=== PATIENT | female | born 1940 | race Caucasian/White ===

== ENCOUNTER 2019-05-12 11:08 | Day surgery (SDC) | payer MEDICARE ==
[2019-05-12] VITALS (7 sets, daily range): BP systolic 132–155; BP diastolic 44–61
[~2019-05-12] VITALS: Ht 167.6 cm; Wt 107.0 kg
[~2019-05-12 11:08] MED LIST: AMLO5TAB2 PO; ASP325TEC PO; CEPH500C PO; ESCT10T PO; GBPN300C PO; HYDR-707 PO; INSU100V16 SC; INSU100V6 SQ; LISI1TAB6 PO; LVT.15T PO; METF-380 PO; SIMV80TA3 PO; TYLENOL W/CODEINE PO
[2019-05-12] MEDS ORDERED: NS IV 1000 ML 1,000 ML ONE (11:11)
[2019-05-12] MEDS ORDERED: LIDOCAINE 1% INJ 20 ML 20 ML VIAL ONE (11:11)
[2019-05-12] MEDS ORDERED: HEParin (CATH LAB) 2,000 ML IV ONE (11:11)
--- OUTSIDE RECORDS SUMMARY | 2019-05-12 11:12 | XMS REPORT | CCD ---
Author Author ALONA PEDRO Unknown Address [address] [facility] [address] [place] [address] Care Team Providers Care Biology Manager Name Role Phone MAKEDA HART Attphys MICHELLE BULLOCK, JOVANY ASHLEY Prisurg B., DEO NASST J., ALONA NASST F., JOAO NASST S., JOHNNY NASST D., PORTIA Rick NASST H., ROXI NASST G., WALLACE NASST T., NU NASST Allergies Unknown or Not Available. Active Medications Medication Code Dose Units Frequency Route Modification Start Date/Time MEROPENEM IV (PREDEFINED): 1000MG 200ML/H(30MIN) IV 12/19/2016 12:00 ~~ MERREM 1000 MG VIAL 9718740 4085 MG ~~ NACL 0.9%: 100 ML BAG 9694557 100 ML ~~ REFRIGERATE 10252838876 1 EA NS 1000 ML IV [PREDEFINED] (7983) 3069737 150 ml/hr IV 12/19/2016 11:15 ~~ NACL 0.9% (7983) 1000ML IV BAG 2594113 4836 ML NACL 0.9% 500 ML IV BAG (7983-03) 9361551 X1 IV 12/19/2016 10:42 ~~ NACL 0.9% 500 ML IV BAG (7983-03) 4793384 500 ML ASPIRIN [CHEWABLE] TAB : 81MG 989221 81 MG DAILYM PO 12/18/2016 14:04 CARVEDILOL [COREG] TABLET : 3.125 MG 418811 3.125 MG BID PO 12/18/2016 14:04 GABAPENTIN (NEURONTIN) CAP:300 MG 058024 300 MG TID PO 12/18/2016 14:04 LEVOTHYROXINE (SYNTHROID)125 MCG 335131 125 MCG DAILY PO 12/18/2016 14:04 NITROGLYCERIN (NITROBID)OINT:2% 1GM UD 481406 1 EA Q6H TOPICAL 12/18/2016 13:59 MORPHINE INJ: 2MG/ML 1 ML SYRINGE 5924654 1 MG PRN IVP 12/18/2016 13:58 NORCO [HYDROCODONE/APAP] 5/325MG TAB 182686 1 TAB PRN Q 4 HRS PO 12/18/2016 13:58 ONDANSETRON [ZOFRAN] INJ 4 MG/2 ML VIAL 4144388 4 MG PRN SIVP 12/18/2016 13:58 Problems Problem Code Start Date Resolved Date Status Acute pulmonary edema 17245763 03/07/2017 Active Hypoxia 248189162 03/07/2017 Active Acute chest pain 238500439 03/08/2017 Resolved Diabetes 51976515 03/08/2017 Resolved Procedures Procedure Code Procedure Type Date US ECHO 2D COMP WITH DOPP AND COLOR 34596234 SNOMED CT 12/18/2016 CX CHEST [address] 12/18/2016 BEDSIDE GLUCOSE 57710242 SNOMED CT 12/19/2016 LACTIC ACID 2698697 [address] 12/19/2016 CULTURE URINE 791924220 SNOMED CT 12/19/2016 CULTURE BLOOD 28392928 SNOMED CT 12/19/2016 CULTURE BLOOD 79892529 SNOMED CT 12/19/2016 BILIRUBIN TOTAL/DIR/IND 160191106 SNOMED CT 12/19/2016 UA W/MICRO C&S IF IND 883969327 SNOMED CT 12/19/2016 CREATININE UR RANDOM 731917638 SNOMED CT 12/19/2016 SODIUM UR RANDOM 810500512 SNOMED CT 12/19/2016 C REACTIVE PROTEIN 58989464 SNOMED CT 12/19/2016 SED RATE 033064510 SNOMED CT 12/19/2016 BEDSIDE GLUCOSE 18212315 SNOMED CT 12/19/2016 TROPONIN-I ADV 627784574 SNOMED CT 12/18/2016 TROPONIN-I ADV 034216438 SNOMED CT 12/19/2016 BEDSIDE GLUCOSE 74757762 SNOMED CT 12/18/2016 BEDSIDE GLUCOSE 56089160 SNOMED CT 12/18/2016 TROPONIN-I ADV 030984780 SNOMED CT 12/18/[address] 12/19/[address]EMOGLOBIN A1C 35426714 SNOMED CT 12/19/2016 LIPID PANEL 59336886 SNOMED [address] 12/19/[address] 12/19/2016 COMPREHENSIVE METABOLIC PANEL 948031747 SNOMED CT 12/19/2016 CBC W/ AUTO DIFF (RFLX MAN DIFF IF IND) 0794341 SNOMED CT 12/19/2016 TROPONIN-I ADV 952990221 SNOMED CT 12/18/[address] 12/18/2016 TROPONIN-I ADV 101734539 SNOMED CT 12/18/2016 COMPREHENSIVE METABOLIC PANEL 342244735 SNOMED CT 12/18/2016 CBC W/ AUTO DIFF (RFLX MAN DIFF IF IND) 5102423 SNOMED CT 12/18/2016 PT EVALUATION; LOW 222848773 SNOMED CT 12/19/2016 OT EVAL; LOW 844708157 SNOMED CT 12/19/2016 ^CULTURE AEROBIC ID [id number] SNOMED CT 12/19/2016 ^CULTURE URINE IDENTIFICATION 980588030 SNOMED CT 12/19/2016 ^CBC W/AUTO DIFF 7142924 SNOMED CT 12/19/2016 ^CBC W/AUTO DIFF 5385136 SNOMED CT 12/18/2016 Results BEDSIDE GLUCOSE - Collect Date/Time: 12/19/2016 11:00 Test Name Code Test Result Test Units Test Ref Range GLUCOSE POCT 263 MG/DL L=70 H=100 BEDSIDE GLUCOSE - Collect Date/Time: 12/19/2016 05:21 Test Name Code Test Result Test Units Test Ref Range GLUCOSE POCT 244 MG/DL L=70 H=100 BEDSIDE GLUCOSE - Collect Date/Time: 12/18/2016 20:45 Test Name Code Test Result Test Units Test Ref Range GLUCOSE POCT 231 MG/DL L=70 H=100 BEDSIDE GLUCOSE - Collect Date/Time: 12/18/2016 17:17 Test Name Code Test Result Test Units Test Ref Range GLUCOSE POCT 240 MG/DL L=70 H=100 BILIRUBIN TOTAL/DIR/IND - Collect Date/Time: 12/19/2016 06:50 Test Name Code Test Result Test Units Test Ref Range TOTAL BILI 1975-2 3.7 MG/DL L=0.0 H=1.5 DIRECT BILI 1968-7 2.8 MG/DL L=0.0 H=0.7 INDIRECT BILI 1971-1 0.9 MG/DL L=0.0 H=0.8 COMPREHENSIVE METABOLIC PANEL - Collect Date/Time: 12/19/2016 06:50 Test Name Code Test Result Test Units Test Ref Range GLUCOSE 2345-7 171 MG/DL L=70 H=100 SODIUM 2951-2 137 MEQ/L L=135 H=148 POTASSIUM 2823-3 4.3 MEQ/L L=3.5 H=5.3 CHLORIDE 2075-0 99 MEQ/L L=96 H=110 CO2 2028-9 27 MEQ/L L=22 H=29 BUN 3094-0 27 MG/DL L=8 H=22 CREATININE 2160-0 1.7 MG/DL L=0.6 H=1.6 SGOT/AST 1920-8 228 IU/L L=10 H=40 SGPT/ALT 1742-6 173 IU/L L=8 H=54 ALK PHOS 6768-6 152 IU/L L=35 H=115 TOTAL PROTEIN 2885-2 7.1 G/DL L=5.5 H=8.5 ALBUMIN 1751-7 3.5 G/DL L=3.1 H=5.4 TOTAL BILI 1975-2 3.7 MG/DL L=0.0 H=1.5 CALCIUM 20270-6 9.6 MG/DL L=8.2 H=10.6 AGE 64724-0 75 yrs GFR NonAA 71264-9 29 GFR AA 74119-3 35 eGFR 44138-9 29 mL/min/1.7 eGFR AA* 96290-2 35 mL/min/1.7 COMPREHENSIVE METABOLIC PANEL - Collect Date/Time: 12/18/2016 09:30 Test Name Code Test Result Test Units Test Ref Range GLUCOSE 2345-7 203 MG/DL L=70 H=100 SODIUM 2951-2 140 MEQ/L L=135 H=148 POTASSIUM 2823-3 4.3 MEQ/L L=3.5 H=5.3 CHLORIDE 2075-0 101 MEQ/L L=96 H=110 CO2 2028-9 27 MEQ/L L=22 H=29 BUN 3094-0 19 MG/DL L=8 H=22 CREATININE 2160-0 1.0 MG/DL L=0.6 H=1.6 SGOT/AST 1920-8 17 IU/L L=10 H=40 SGPT/ALT 1742-6 13 IU/L L=8 H=54 ALK PHOS 6768-6 72 IU/L L=35 H=115 TOTAL PROTEIN 2885-2 8.5 G/DL L=5.5 H=8.5 ALBUMIN 1751-7 4.2 G/DL L=3.1 H=5.4 TOTAL BILI 1975-2 0.6 MG/DL L=0.0 H=1.5 CALCIUM 49413-4 10.1 MG/DL L=8.2 H=10.6 AGE 75 yrs GFR NonAA 54 GFR AA 65 eGFR 54 mL/min/1.7 eGFR AA* >60 N/A LIPID PANEL - Collect Date/Time: 12/19/2016 06:50 Test Name Code Test Result Test Units Test Ref Range TRIGLYCERIDES 3043-7 92 MG/DL L=0 H=135 CHOLESTEROL 2093-3 115 MG/DL L=0 H=199 HDL 2085-9 44 MG/DL L=29 H=89 TOT CHOL/HDL 52289-9 2.6 L=0.0 H=5.0 LDL (CALC) 30034-0 53 MG/DL L=0 H=129 MAGNESIUM - Collect Date/Time: 12/19/2016 06:50 Test Name Code Test Result Test Units Test Ref Range MAGNESIUM 52083-5 1.8 MG/DL L=1.7 H=2.8 CREATININE UR RANDOM - Collect Date/Time: 12/19/2016 12:09 Test Name Code Test Result Test Units Test Ref Range CREAT UR RAND 2161-8 186.7 MG/DL SODIUM UR RANDOM - Collect Date/Time: 12/19/2016 12:09 Test Name Code Test Result Test Units Test Ref Range NA UR RANDOM 2955-3 23 MEQ/L CBC W/ AUTO DIFF (RFLX MAN DIFF IF IND) - Collect Date/Time: 12/19/2016 06:50 Test Name Code Test Result Test Units Test Ref Range WBC 40760-4 9.5 TH/CMM L=4.5 H=10.8 RBC 789-8 4.01 ML/CMM L=4.20 H=5.40 HGB 718-7 11.1 G/DL L=12.0 H=16.0 HCT 4544-3 35.9 % L=37.0 H=47.0 MCV 40709-9 90 FL L=81 H=99 MCH 81269-2 27.7 PG L=27.0 H=33.0 MCHC 70715-7 30.9 G/DL L=31.0 H=36[place] [address]-8 48 FL L=36 H=50 RDW [place] 71000-6 14.7 % L=0.0 H=14.8 MPV 94177-7 10.8 FL L=9.3 H=12.5 PLT 777-3 212 TH/CMM L=130 H=440 NRBC# 50689-4 0.00 TH/CMM L=0.00 H=0.00 NRBC% 16827-8 0.0 /100WBC L=0.0 H=2.0 %NEUT 05021-6 71.7 % %LYMP 00599-3 18.5 % %MONO 09873-5 8.8 % %EOS 49153-3 0.3 % %BASO 63268-3 0.3 % #NEUT 02226-0 6.82 TH/CMM L=2.10 H=8.20 #LYMP 98281-2 1.76 TH/CMM L=0.90 H=5.20 #MONO 18518-0 0.84 TH/CMM L=0.16 H=1.00 #EOS 73296-0 0.03 TH/CMM L=0.00 H=0.80 #BASO 72148-9 0.03 TH/CMM L=0.00 H=0.20 MANUAL DIFF 70356-6 NOT IND N/A CBC W/ AUTO DIFF (RFLX MAN DIFF IF IND) - Collect Date/Time: 12/18/2016 09:30 Test Name Code Test Result Test Units Test Ref Range WBC 80584-3 11.8 TH/CMM L=4.5 H=10.8 RBC 789-8 4.76 ML/CMM L=4.20 H=5.40 HGB 718-7 13.3 G/DL L=12.0 H=16.0 HCT 4544-3 42.5 % L=37.0 H=47.0 MCV 89 FL L=81 H=99 MCH 27.9 PG L=27.0 H=33.0 MCHC 31.3 G/DL L=31.0 H=36.0 RDW SD 47 FL L=36 H=50 RDW CV 14.3 % L=0.0 H=14.8 MPV 11.0 FL L=9.3 H=12.5 PLT 777-3 195 TH/CMM L=130 H=440 NRBC# 0.00 TH/CMM L=0.00 H=0.00 NRBC% 0.0 /100WBC L=0.0 H=2.0 %NEUT 80.9 % %LYMP 13.2 % %MONO 4.7 % %EOS 0.6 % %BASO 0.3 % #NEUT 9.53 TH/CMM L=2.10 H=8.20 #LYMP 1.56 TH/CMM L=0.90 H=5.20 #MONO 0.55 TH/CMM L=0.16 H=1.00 #EOS 0.07 TH/CMM L=0.00 H=0.80 #BASO 0.04 TH/CMM L=0.00 H=0.20 MANUAL DIFF NOT IND N/A SED RATE - Collect Date/Time: 12/19/2016 06:50 Test Name Code Test Result Test Units Test Ref Range SEDRATE 4537-7 78 MM/HR L=0 H=30 UA W/MICRO C&S IF IND - Collect Date/Time: 12/19/2016 11:50 Test Name Code Test Result Test Units Test Ref Range COLOR 56017-1 YELLOW N/A NL: YELLOW APPEARANCE 39935-1 CLEAR N/A NL: CLEAR SPEC GRAV 97274-9 1.020 N/A NL: 1.002 - 1.022 pH 54464-2 5.5 N/A NL: 5 - 9 PROTEIN 05848-2 30 N/A NL: NEGATIVE mg/dl GLUCOSE 07236-7 NEGATIVE N/A NL: NEGATIVE mg/dl KETONE 49337-2 NEGATIVE N/A NL: NEGATIVE mg/dl BILIRUBIN 56276-3 MODERATE N/A NL: NEGATIVE BLOOD 52428-5 TRACE-INTACT N/A NL: NEGATIVE NITRITE 21765-7 POSITIVE N/A NL: NEGATIVE LEUK SCREEN 94512-2 MODERATE N/A NL: NEGATIVE WBC/HPF 87918-8 20-50 N/A NL: NEGATIVE RBC/HPF 29268-8 NEGATIVE N/A NL: NEGATIVE CASTS/LPF 26159-6 SEE BELOW N/A NL: NEGATIVE CRYSTALS 19035-7 NEGATIVE N/A NL: NEGATIVE MUCOUS THRDS 00332-4 NEGATIVE N/A NL: NEGATIVE BACTERIA 85390-8 2++ N/A NL: NEGATIVE EPITH CELLS 31014-1 NEGATIVE N/A NL: NEGATIVE TRICHOMONAS 79249-2 NEGATIVE N/A NL: NEGATIVE YEAST 73655-6 NEGATIVE N/A NL: NEGATIVE CULT SET UP? 69368-4 NO N/A BNP - Collect Date/Time: 12/18/2016 09:30 Test Name Code Test Result Test Units Test Ref Range BNP 35662-5 185 PG/ML L=0 H=100 C REACTIVE PROTEIN - Collect Date/Time: 12/19/2016 06:50 Test Name Code Test Result Test Units Test Ref Range C REACTIVE PROTEIN 1988-5 8.8 MG/DL L=0.0 H=1.0 HEMOGLOBIN A1C - Collect Date/Time: 12/19/2016 06:50 Test Name Code Test Result Test Units Test Ref Range HGB A1C 45436-5 8.4 % L=4.0 H=6.4 Est Avg Glucose 56306-1 194.4 mg/dL TROPONIN-I ADV - Collect Date/Time: 12/19/2016 06:50 Test Name Code Test Result Test Units [place] [address]-5 0.07 ng/mL L=0.04 H=0.40 TROPONIN-I ADV - Collect Date/Time: 12/18/2016 22:05 Test Name Code Test Result Test Units [place] [address]-8 0.05 ng/mL L=0.04 H=0.40 TROPONIN-I ADV - Collect Date/Time: 12/18/2016 14:15 Test Name Code Test Result Test Units [place] [address]-6 <0.04 ng/mL L=0.04 H=0.40 TROPONIN-I ADV - Collect Date/Time: 12/18/2016 10:55 Test Name Code Test Result Test Units [place] [address]-1 0.04 ng/mL L=0.04 H=0.40 TROPONIN-I ADV - Collect Date/Time: 12/18/2016 09:30 Test Name Code Test Result Test Units [place] [address]-8 <0.04 ng/mL L=0.04 H=0.40 TSH - Collect Date/Time: 12/19/2016 06:50 Test Name Code Test Result Test Units Test Ref Range TSH 44388-7 1.08 mIU/L L=0.35 H=4.94 LACTIC ACID - Collect Date/Time: 12/19/2016 11:25 Test Name Code Test Result Test Units Test Ref Range LACTIC ACID 2524-7 2.2 mmol/L L=0.5 H=1.6 Function Status Unknown or Not Available. History of Immunizations Immunization Code Date influenza, split (incl. purified surface antigen) 15 08/28/2003 influenza, split (incl. purified surface antigen) 15 08/29/2006 influenza, split (incl. purified surface antigen) 15 08/10/2007 influenza, split (incl. purified surface antigen) 15 08/09/2008 Plan of Treatment Unknown or Not Available. Social History Smoking Status Code Start Date End Date Former smoker [id number] Vital Signs Vital Sign Value Unit Date/Time Recent/Initial? BP Systolic 152 mm[Hg] 12/18/2016 12:53 Initial VS BP Diastolic 66 mm[Hg] 12/18/2016 12:53 Initial VS Respiratory Rate 20 /min 12/18/2016 12:53 Initial VS Heart Rate 89 /min 12/18/2016 12:53 Initial VS O2 % BldC Oximetry 98 % 12/18/2016 12:53 Initial VS Body Temperature 97.8 [degF] 12/18/2016 12:53 Initial VS Weight Measured 289 [lb_av] 12/18/2016 12:54 Initial VS Height 65 [in_i] 12/18/2016 12:54 Initial VS BMI (Body Mass Index) 48.09 kg/m2 12/18/2016 12:54 Initial VS BSA (Body Surface Area) 2.45 m2 12/18/2016 12:54 Initial VS BP Systolic 106 mm[Hg] 12/19/2016 16:09 Most Recent VS BP Diastolic 52 mm[Hg] 12/19/2016 16:09 Most Recent VS Respiratory Rate 18 /min 12/19/2016 16:09 Most Recent VS Heart Rate 98 /min 12/19/2016 16:09 Most Recent VS O2 % BldC Oximetry 92 % 12/19/2016 16:09 Most Recent VS Body Temperature 100.1 [degF] 12/19/2016 16:09 Most Recent VS Function Status Unknown or Not Available. Goals Unknown or Not Available. ASSESSMENTS Unknown or Not Available. Health Concerns Section Unknown or Not Available.
--- OUTSIDE RECORDS SUMMARY | 2019-05-12 11:12 | XMS REPORT | CCD ---
Author Author MCKAY HANSEN Organization Unknown Address [address] [facility] [address] [place] [address] Care Team Providers Care Hl7 Developer Name Role Phone SAMIA PRITCHARD DO Attphys Allergies Allergy Code Allergy Type Reaction Status SULFA (sulfonamide) 0 Drug allergy Active IV DYE {Clinical monitoring unavailable} 0 Drug allergy Active Active Medications Medication Code Dose Units Frequency Route Modification Start Date/Time Cefpodoxime Proxetil 100MG Oral Tablet 391662 1 TABLET EVERY 12 HOURS BY MOUTH 11/26/2017 12:47 Prescription Detail 1 TABLET BY MOUTH EVERY 12 HOURS x 5 days Furosemide 40MG Oral Tablet 259043 40 MILLIGRAMS BIDLASIX BY MOUTH 11/26/2017 11:45 Prescription Detail 40 MILLIGRAMS BY MOUTH BIDLASIX x 4 days then eval dose adjust by provider Colace 100MG Oral Capsule, Liquid Filled 3449271 100 MILLIGRAMS TWO TIMES A DAY ORAL 11/26/2017 11:40 Prescription Detail 100 MILLIGRAMS ORAL TWO TIMES A DAY Levemir 100U/1ML Subcutaneous Solution 234138 15 UNIT TWO TIMES A DAY BY MOUTH 11/26/2017 11:40 Prescription Detail 15 UNIT BY MOUTH TWO TIMES A DAY metFORMIN HCl 500MG Oral Tablet 760421 500 MILLIGRAMS TWO TIMES A DAY ORAL 11/26/2017 11:40 Prescription Detail 500 MILLIGRAMS ORAL TWO TIMES A DAY Mirtazapine 15MG Oral Tablet 909171 15 MILLIGRAMS AT BEDTIME ORAL 11/26/2017 11:40 Prescription Detail 15 MILLIGRAMS ORAL AT BEDTIME Potassium Chloride 20MEQ Oral Tablet, Extended Release 1674906 20 MEQ DAILY ORAL 11/26/2017 11:40 Prescription Detail 20 MEQ ORAL DAILY Amiodarone HCl 400MG Oral Tablet 544732 400 MILLIGRAMS DAILY ORAL 03/08/2017 10:13 Prescription Detail 400 MILLIGRAMS ORAL DAILY Aspirin Low Dose 81MG Oral Tablet 03994545578 81 MILLIGRAMS DAILY ORAL 03/08/2017 10:13 Prescription Detail 81 MILLIGRAMS ORAL DAILY Carvedilol 3.125MG Oral Tablet 469896 3.125 MILLIGRAMS TWO TIMES A DAY ORAL 03/08/2017 10:13 Prescription Detail 3.125 MILLIGRAMS ORAL TWO TIMES A DAY Gabapentin 300MG Oral Capsule 503525 300 MILLIGRAMS THREE TIMES A DAY ORAL 03/08/2017 10:13 Prescription Detail 300 MILLIGRAMS ORAL THREE TIMES A DAY Synthroid 125MCG Oral Tablet 629895 125 MCG DAILY ORAL 03/08/2017 10:13 Prescription Detail 125 MCG ORAL DAILY Zocor 80MG Oral Tablet 478324 80 MILLIGRAMS DAILY ORAL 03/08/2017 10:13 Prescription Detail 80 MILLIGRAMS ORAL DAILY Problems Problem Code Start Date Resolved Date Status Acute pulmonary edema 12294862 03/07/2017 Active Hypoxia 394364908 03/07/2017 Active Procedures Procedure Code Procedure Type Date ^CULTURE AEROBIC ID [id number] SNOMED CT 04/26/2017 ^CULTURE URINE IDENTIFICATION 834653027 SNOMED CT 04/26/2017 CULTURE URINE 851779573 SNOMED CT 04/26/2017 UA ROUTINE C&S IF IND 051470808 SNOMED CT 04/26/2017 ^UA WITH MICRO 604493631 SNOMED CT 04/26/2017 Results UA ROUTINE C&S IF IND - Collect Date/Time: 04/26/2017 11:54 Test Name Code Test Result Test Units Test Ref Range COLOR RED N/A NL: YELLOW APPEARANCE CLOUDY N/A NL: CLEAR SPEC GRAV 1.020 N/A NL: 1.002 - 1.022 pH 7.0 N/A NL: 5 - 9 PROTEIN >=300 N/A NL: NEGATIVE mg/dl GLUCOSE NEGATIVE N/A NL: NEGATIVE mg/dl KETONE NEGATIVE N/A NL: NEGATIVE mg/dl BILIRUBIN MODERATE N/A NL: NEGATIVE BLOOD LARGE N/A NL: NEGATIVE NITRITE NEGATIVE N/A NL: NEGATIVE LEUK SCREEN LARGE N/A NL: NEGATIVE MICRO INDICATED? SEE BELOW N/A WBC/HPF 20-50 N/A NL: NEGATIVE RBC/HPF 50-100 N/A NL: NEGATIVE CASTS/LPF NEGATIVE N/A NL: NEGATIVE CRYSTALS NEGATIVE N/A NL: NEGATIVE MUCOUS THRDS NEGATIVE N/A NL: NEGATIVE BACTERIA FEW N/A NL: NEGATIVE EPITH CELLS FEW SQUAMOUS N/A NL: NEGATIVE TRICHOMONAS NEGATIVE N/A NL: NEGATIVE YEAST NEGATIVE N/A NL: NEGATIVE CULT SET UP? YES N/A Function Status Unknown or Not Available. History of Immunizations Immunization Code Date influenza, split (incl. purified surface antigen) 15 08/28/2003 influenza, split (incl. purified surface antigen) 15 08/29/2006 influenza, split (incl. purified surface antigen) 15 08/10/2007 influenza, split (incl. purified surface antigen) 15 08/09/2008 Plan of Treatment Unknown or Not Available. Social History Smoking Status Code Start Date End Date Former smoker [id number] Vital Signs Unknown or Not Available. Function Status Unknown or Not Available. Goals Unknown or Not Available. ASSESSMENTS Unknown or Not Available. Health Concerns Section Unknown or Not Available.
--- OUTSIDE RECORDS SUMMARY | 2019-05-12 11:12 | XMS REPORT | CCD ---
Author Author ALEM ANDINO Organization Unknown Address [address] [place] [address] Care Team Providers Care Plastic Molding Operator Name Role Phone THEODORE ER, SAMIA DO Attphys WASKISH ER, SAMIA DO Prisurg Allergies Allergy Code Allergy Type Reaction Status TRIPLE DYE 13651 Drug allergy Active SULFONAMIDE 0 Drug allergy Active Active Medications Unknown or Not Available. Problems Problem Code Start Date Resolved Date Status Acute chest pain 624449670 Active Diabetes 45442798 Active Procedures Procedure Code Procedure Type Date VENOUS UPP OR LOW EXT UNILATERAL 589161386 SNOMED CT 10/23/[address] 10/23/[address] 10/23/[address] 10/23/2016 D DIMER QUANT 972774486 SNOMED CT 10/23/2016 COMPREHENSIVE METABOLIC PANEL 508400816 SNOMED CT 10/23/2016 CBC W/ AUTO DIFF (RFLX MAN DIFF IF IND) 1472926 SNOMED CT 10/23/2016 ^CBC W/AUTO DIFF 7598213 SNOMED CT 10/23/2016 Results COMPREHENSIVE METABOLIC PANEL - Collect Date/Time: 10/23/2016 16:20 Test Name Code Test Result Test Units Test Ref Range GLUCOSE 2345-7 154 MG/DL L=70 H=100 SODIUM 2951-2 143 MEQ/L L=135 H=148 POTASSIUM 2823-3 3.6 MEQ/L L=3.5 H=5.3 CHLORIDE 2075-0 104 MEQ/L L=96 H=110 CO2 2028-9 26 MEQ/L L=22 H=29 BUN 3094-0 21 MG/DL L=8 H=22 CREATININE 2160-0 1.2 MG/DL L=0.6 H=1.6 SGOT/AST 1920-8 35 IU/L L=10 H=40 SGPT/ALT 1742-6 19 IU/L L=8 H=54 ALK PHOS 6768-6 74 IU/L L=35 H=115 TOTAL PROTEIN 2885-2 8.2 G/DL L=5.5 H=8.5 ALBUMIN 1751-7 4.1 G/DL L=3.1 H=5.4 TOTAL BILI 1975-2 0.2 MG/DL L=0.0 H=1.5 CALCIUM 37668-4 10.3 MG/DL L=8.2 H=10.6 AGE 75 yrs GFR NonAA 44 GFR AA 53 eGFR 44 mL/min/1.7 eGFR AA* 53 mL/min/1.7 MAGNESIUM - Collect Date/Time: 10/23/2016 16:20 Test Name Code Test Result Test Units Test Ref Range MAGNESIUM 01538-6 1.8 MG/DL L=1.7 H=2.8 CBC W/ AUTO DIFF (RFLX MAN DIFF IF IND) - Collect Date/Time: 10/23/2016 16:20 Test Name Code Test Result Test Units Test Ref Range WBC 28853-6 8.5 TH/CMM L=4.5 H=10.8 RBC 789-8 4.39 ML/CMM L=4.20 H=5.40 HGB 718-7 12.1 G/DL L=12.0 H=16.0 HCT 4544-3 39.1 % L=37.0 H=47.0 MCV 89 FL L=81 H=99 MCH 27.6 PG L=27.0 H=33.0 MCHC 30.9 G/DL L=31.0 H=36.0 RDW SD 47 FL L=36 H=50 RDW CV 14.6 % L=0.0 H=14.8 MPV 10.7 FL L=9.3 H=12.5 PLT 777-3 266 TH/CMM L=130 H=440 NRBC# 0.00 TH/CMM L=0.00 H=0.00 NRBC% 0.0 /100WBC L=0.0 H=2.0 %NEUT 66.2 % %LYMP 25.9 % %MONO 5.2 % %EOS 2.0 % %BASO 0.2 % #NEUT 5.64 TH/CMM L=2.10 H=8.20 #LYMP 2.21 TH/CMM L=0.90 H=5.20 #MONO 0.44 TH/CMM L=0.16 H=1.00 #EOS 0.17 TH/CMM L=0.00 H=0.80 #BASO 0.02 TH/CMM L=0.00 H=0.20 MANUAL DIFF NOT IND N/A D DIMER QUANT - Collect Date/Time: 10/23/2016 16:20 Test Name Code Test Result Test Units Test Ref Range D-DIMER QUANT 21419-7 0.63 MG/L FEU L=0.00 H=0.50 BNP - Collect Date/Time: 10/23/2016 16:20 Test Name Code Test Result Test Units Test Ref Range BNP 72624-9 87 PG/ML L=0 H=100 TSH - Collect Date/Time: 10/23/2016 16:20 Test Name Code Test Result Test Units Test Ref Range TSH 25558-6 1.41 mIU/L L=0.35 H=4.94 Encounters Encounter Diagnosis Diagnosis Code Start Date Synovial cyst of popliteal space [Flores], left knee [id number] 10/23/2016 Function Status Unknown or Not Available. History of Immunizations Immunization Code Date influenza, split (incl. purified surface antigen) 15 08/28/2003 influenza, split (incl. purified surface antigen) 15 08/29/2006 influenza, split (incl. purified surface antigen) 15 08/10/2007 influenza, split (incl. purified surface antigen) 15 08/09/2008 Plan of Treatment Unknown or Not Available. Social History Smoking Status Code Start Date End Date Former smoker [id number] Vital Signs Unknown or Not Available. Function Status Unknown or Not Available. Goals Unknown or Not Available. ASSESSMENTS Unknown or Not Available. Health Concerns Section Unknown or Not Available.
--- OUTSIDE RECORDS SUMMARY | 2019-05-12 11:16 | XMS REPORT ---
Author Author Tony Sue Organization [facility] Address [address] [place] [id number] Care Team Providers Care Bread Racker Name Role Phone Tony Sue PCP Tony Sue PreferredProvider Allergies and Adverse Reactions Name Reaction Notes SULFA (SULFONAMIDES) IV DYE, IODINE CONTAINING Wellbutrin Plan of Treatment Not available. Medications Active Name Start Date Estimated Completion Date SIG Comments Aspir-81 81 mg oral tablet,delayed release (DR/EC) take 1 tablet (81 mg) by oral route once daily iron 325 mg (65 mg iron) oral tablet 02/08/2018 take 1 tablet (325 mg) by oral route once daily Zocor 40 mg oral tablet take 1 tablet (40 mg) by oral route once daily in the evening lactulose 10 gram/15 mL oral solution 03/05/2018 TAKE 30ML'S BY MOUTH TWICE DAILY folic acid 1 mg oral tablet 03/05/2018 TAKE 1 TABLET BY MOUTH DAILY Levemir FlexTouch U-100 Insuln 100 unit/mL (3 mL) subcutaneous insulin pen 03/05/2018 INJECT 10 UNITS SUBCUTANEOUS TWICE DAILY potassium chloride 20 mEq oral tablet,ER particles/crystals 06/04/2018 TAKE 1 TABLET BY MOUTH DAILY VITAMIN D3 1000 IU DAVINCI 06/08/2018 TAKE 1 TABLET BY MOUTH DAILY Aspir-Low 81 mg oral tablet,delayed release (DR/EC) 06/08/2018 TAKE 1 TABLET BY MOUTH DAILY ferrous sulfate 325 mg (65 mg iron) oral tablet 06/08/2018 TAKE 1 TABLET BY MOUTH DAILY furosemide 20 mg oral tablet 07/01/2018 TAKE 3 TABLETS BY MOUTH DAILY mirtazapine 30 mg oral tablet 07/01/2018 TAKE ONE AND ONE-HALF TABLET BY MOUTH DAILY sertraline 100 mg oral tablet 07/01/2018 TAKE 1 TABLET BY MOUTH DAILY Klor-Con Sprinkle 10 mEq oral capsule, extended release 07/01/2018 TAKE 2 CAPSULES BY MOUTH DAILY metformin 500 mg oral tablet 07/01/2018 TAKE 1 TABLET BY MOUTH TWICE DAILY ipratropium-albuterol 0.5 mg-3 mg(2.5 mg base)/3 mL inhalation solution for nebulization 08/23/2018 INHALE CONTENTS OF 1 VIAL BY MOUTH VIA NEBULIZER FOUR TIMES DAILY albuterol sulfate 0.63 mg/3 mL inhalation solution for nebulization 10/18/2018 INHALE CONTENTS OF 1 VIAL BY MOUTH VIA NEBULIZER EVERY 4 HOURS NEEDED Humalog KwikPen Insulin 100 unit/mL subcutaneous insulin pen 10/18/2018 INJECT 12 UNITS SUB CUTANEOUS THREE TIMES DAILY carvedilol 3.125 mg oral tablet 10/18/2018 TAKE 1 TABLET BY MOUTH TWICE DAILY ondansetron 4 mg oral tablet,disintegrating 10/18/2018 DISSOLVE 1 TABLET UNDER THE TONGUE EVERY 4 HOURS NEEDED furosemide 80 mg oral tablet 02/02/2019 TAKE 1 TABLET BY MOUTH DAILY clopidogrel 75 mg oral tablet 02/14/2019 TAKE 1 TABLET BY MOUTH DAILY Renvela 800 mg oral tablet take 1 tablet (800 mg) by oral route 3 times per day with food midodrine 10 mg oral tablet 04/07/2019 TAKE 1 TABLET BY MOUTH 3 TIMES A WEEK ON DIALYSIS DAYS AND TAKE 1 TABLET TO DIALYSIS WITH PATIENT Tresiba FlexTouch U-100 100 unit/mL (3 mL) subcutaneous insulin pen 04/12/2019 INJECT 5 UNITS SUBCUTANEOUS EVERY NIGHT AT BEDTIME amiodarone 200 mg oral tablet 04/19/2019 TAKE 2 TABLETS (400MG) BY MOUTH DAILY gabapentin 300 mg oral capsule 04/19/2019 TAKE 1 CAPSULE BY MOUTH THREE TIMES DAILY levothyroxine 125 mcg oral tablet 04/19/2019 TAKE 1 TABLET BY MOUTH DAILY mirtazapine 15 mg oral tablet 04/19/2019 TAKE 1 TABLET BY MOUTH DAILY simvastatin 20 mg oral tablet 04/27/2019 TAKE 1 TABLET BY MOUTH AT BEDTIME Name Start Date Expiration Date SIG Comments gabapentin Oral Capsule 300 mg 08/23/2010 09/22/2010 TAKE 1 CAPSULE BY MOUTH TWO TIMES A DAY Syringe 1cc 8mm 31 gauge needle 01/03/2011 08/01/2011 Use QID DM 250.01 DM type 1 amoxicillin Oral Capsule 500 mg 03/24/2011 04/03/2011 take 2 capsules by oral route 3 times a day for 10 days one touch test strips 05/22/2011 04/16/2012 test FBS and up to TID for DM type 2 250.0 Novolog Flexpen Subcutaneous Insulin Pen 100 unit/mL 07/15/2011 02/10/2012 INJECT 15 UNITS UNDER THE SKIN SUBCUTANEOUSLY BEFORE BREAKFAST AND LUNCH, INJECT 24 UNITS BEFORE SUPPER Lantus Subcutaneous Solution 100 unit/mL 07/15/2011 02/10/2012 INJECT 170 UNITS UNDER THE SKIN SUBCUTANEOUSLY AT BEDTIME Lisinopril-Hydrochlorothiazide Oral Tablet 20-12.5 mg 07/15/2011 02/10/2012 TAKE 1 TABLET BY MOUTH DAILY metformin Oral Tablet 1,000 mg 09/17/2011 09/11/2012 TAKE 1 TABLET BY MOUTH TWO TIMES A DAY WITH MORNING AND EVENING MEALS amlodipine Oral Tablet 5 mg 09/17/2011 09/11/2012 take 1 tablet (5 mg) by oral route once daily for 30 days acetaminophen-codeine oral tablet 300-30 mg 12/17/2011 12/20/2012 take 1 tablet (300-30 mg) by oral route TID PRN for 30 days Tylenol-Codeine #3 oral tablet 300-30 mg 06/12/2014 09/10/2014 take 1 tablet by oral route every 6 hours as needed for 30 days Lasix 40 mg oral tablet 03/17/2017 12/12/2017 take 2 tablets (80 mg) by oral route 2 times per day for 90 days Synthroid 125 mcg oral tablet 09/14/2017 03/13/2018 take 1 tablet (125 mcg) by oral route once daily for 30 days Levemir U-100 Insulin 100 unit/mL subcutaneous solution 12/24/2017 08/09/2018 INJECT 26 UNITS SUBCUTANEOUS TWICE DAILY Florastor 250 mg oral capsule 06/02/2018 08/31/2018 take 1 capsule by oral route 2 times a day for 30 days acyclovir 800 mg oral tablet 12/28/2018 01/04/2019 take 1 tablet (800 mg) by oral route 5 times per day for 7 days Discontinued Name Start Date Discontinued Date SIG Comments Novolog Subcutaneous Solution 100 unit/mL 08/06/2010 18 u ac breakfast and lunch . 21u ac supper Susy Oral Tablet 180 mg 10/23/2009 take 1 tablet (180 mg) by oral route once daily Aspirin Oral Tablet 325 mg 12/04/2016 take 1 tablet by oral route daily Multivitamin Oral Tablet 12/12/2013 take 1 tablet by oral route once daily with food Calcium 600 + D(3) Oral Tablet 600-400 mg-unit 12/12/2013 take 1 tablet by oral route 2 times a day Simvastatin Oral Tablet 80 mg 10/23/2009 take 1 tablet (80 mg) by oral route once daily in the evening Clotrimazole Topical Cream 1 % 10/23/2009 12/17/2011 apply to the affected and surrounding areas of skin by topical route 2 times per day morning and evening Paxil Oral Tablet 20 mg 10/23/2009 11/06/2009 take 1 tablet (20 mg) by oral route once daily Zocor Oral Tablet 80 mg 10/23/2009 06/16/2012 take 1 tablet (80 mg) by oral route once daily in the evening Ammonium Lactate Topical Cream 12 % 01/28/2010 12/17/2011 apply to affected area(s) by topical route daily Neurontin Oral Capsule 300 mg 02/21/2011 11/06/2014 take 1 capsule (300 mg) by oral route 2 times per day uncertain of effectiveness and increase in Cymbalta to cover neuropathic pain Lexapro Oral Tablet 20 mg 07/15/2011 11/06/2014 TAKE 1 TABLET BY MOUTH ONCE A DAY Increased Cymbalta from 30 mg to 60 mg amlodipine-benazepril Oral Capsule 5-20 mg 09/17/2011 09/17/2011 TAKE 1 CAPSULE TWO TIMES A DAY phentermine Oral capsule 37.5 mg 12/20/2012 take 1 capsule (37.5 mg) by oral route once daily before breakfast Amaryl oral tablet 1 mg 06/12/2014 take 1 tablet (1 mg) by oral route once daily Cymbalta oral capsule,delayed release(DR/EC) 60 mg 03/15/2015 12/04/2016 take 1 capsule (60 mg) by oral route once daily for 30 days Humalog KwikPen 100 unit/mL subcutaneous insulin pen 02/10/2018 inject by subcutaneous route per prescriber's instructions. Insulin dosing requires individualization. Toujeo SoloStar 300 unit/mL (1.5 mL) subcutaneous insulin pen 02/10/2018 inject by subcutaneous route per prescriber's instructions. Insulin dosing requires individualization. Januvia 100 mg oral tablet 02/10/2018 take 1 tablet (100 mg) by oral route once daily Mirapex 1 mg oral tablet 03/17/2017 take 1 tablet (1 mg) by oral route 3 times per day Neurontin 300 mg oral capsule 01/13/2017 take 1 capsule (300 mg) by oral route 3 times per day generic Actos 15 mg oral tablet 02/26/2017 take 1 tablet (15 mg) by oral route once daily Nystop 100,000 unit/gram topical powder 01/13/2017 apply to the affected area(s) by topical route 3 times per day PRN Xeloda 500 mg oral tablet 05/28/2017 take 3 tablets by oral route 2 times a day amlodipine 5 mg oral tablet 02/26/2017 02/10/2018 take 1.5 tablets by oral route daily for 90 days Cipro 250 mg oral tablet 09/01/2017 02/10/2018 take 1 tablet (250 mg) by oral route every 12 hours for 7 days potassium chloride 20 mEq oral tablet extended release 09/14/2017 02/10/2018 take 1 tablet (20 meq) by oral route 2 times per day with food for 30 days mirtazapine 15 mg oral tablet 09/23/2017 01/13/2018 take 2 tablets (30 mg) by oral route once daily before bedtime for 30 days simvastatin 80 mg oral tablet 12/24/2017 02/10/2018 TAKE 1 TABLET BY MOUTH AT BEDTIME potassium chloride 20 mEq oral tablet,ER particles/crystals 01/27/2018 02/10/2018 TAKE 1 TABLET BY MOUTH DAILY simvastatin 40 mg oral tablet 07/01/2018 10/20/2018 TAKE 1 TABLET BY MOUTH AT BEDTIME simvastatin 80 mg oral tablet 07/28/2018 10/20/2018 TAKE 1 TABLET BY MOUTH AT BEDTIME ondansetron HCl 4 mg oral tablet 07/29/2018 11/26/2018 TAKE 1 TABLET BY MOUTH EVERY 4 HOURS NEEDED Problem List Description Status Onset Allergic Rhinitis Active Chronic Back Pain Active degenerative disk disease Active depression Active Diabetes Mellitus, Type II Active Hyperlipidemia Active Hypothyroidism, acquired Active Neuropathy Active spinal stenosis Active Hypertension, Benign Essential Active Actinic keratosis Active Major Depression (Single Episode) Active 10/23/2009 Diabetes Mellitus, Type II Active 06/01/2015 Hypertensive Heart Disease With Heart Failure Active 12/04/2016 Diabetes mellitus with neurological manifestations, uncontrolled Active 12/04/2016 Vital Signs Date Time BP-Sys(mm[Hg] BP-Maegan(mm[Hg]) HR(bpm) RR(rpm) Temp WT HT HC BMI BSA BMI Percentile O2 Sat(%) 03/04/2019 1:13:00 PM 122 mmHg 68 mmHg 58 bpm 17 rpm 97.7 F 231.125 lbs 64 in 39.6721 kg/m 2.1758 m 99 % 12/28/2018 3:28:00 PM 120 mmHg 62 mmHg 58 bpm 20 rpm 97.7 F 223 lbs 98 % 12/03/2018 1:29:00 PM 120 mmHg 72 mmHg 61 bpm 18 rpm 98.1 F 228.375 lbs 64 in 39.2001 kg/m 2.1628 m 96 % 11/26/2018 8:23:00 AM 122 mmHg 78 mmHg 56 bpm 18 rpm 98.2 F 231 lbs 64 in 39.65 kg/m2 2.18 m2 94 % 10/20/2018 11:07:00 AM 118 mmHg 72 mmHg 50 bpm 17 rpm 97.7 F 231.5 lbs 64 in 39.7365 kg/m 2.1775 m 94 % 08/27/2018 10:39:00 AM 120 mmHg 67 mmHg 51 bpm 20 rpm 97.5 F 249 lbs 64 in 42.74 kg/m2 2.26 m2 97 % 07/28/2018 1:25:00 PM 99 mmHg 40 mmHg 55 bpm 18 rpm 97.5 F 246 lbs 64 in 42.2254 kg/m 2.2447 m 97 % 07/28/2018 1:25:00 PM 99 mmHg 40 mmHg 55 bpm 18 rpm 97.5 F 246 lbs 64 in 42.2254 kg/m 2.2447 m 97 % 06/22/2018 1:26:00 PM 118 mmHg 76 mmHg 58 bpm 18 rpm 97.5 F 232 lbs 64 in 39.82 kg/m2 2.18 m2 96 % 06/02/2018 3:47:00 PM 117 mmHg 65 mmHg 54 bpm 20 rpm 97.2 F 228 lbs 64 in 39.1357 kg/m 2.161 m 92 % 02/11/2018 2:54:00 PM 110 mmHg 78 mmHg 56 bpm 20 rpm 97.9 F 268 lbs 64 in 46.00 kg/m2 2.34 m2 99 % 02/10/2018 1:46:00 PM 114 mmHg 66 mmHg 57 bpm 16 rpm 97.9 F 272 lbs 64 in 46.6882 kg/m 2.3603 m 96 % 09/23/2017 11:20:00 AM 126 mmHg 70 mmHg 74 bpm 20 rpm 97.4 F 288.25 lbs 66 in 46.52 kg/m2 2.47 m2 93 % 08/28/2017 9:55:00 AM 124 mmHg 58 mmHg 77 bpm 20 rpm 97.3 F 290.25 lbs 66 in 46.8471 kg/m 2.476 m 92 % 08/12/2017 11:18:00 AM 136 mmHg 78 mmHg 71 bpm 20 rpm 97.3 F 284.375 lbs 66 in 45.90 kg/m2 2.45 m2 93 % 05/28/2017 10:15:00 AM 128 mmHg 68 mmHg 87 bpm 18 rpm 96.9 F 291.125 lbs 66 in 46.9883 kg/m 2.4798 m 94 % 03/17/2017 10:57:00 AM 138 mmHg 74 mmHg 88 bpm 18 rpm 96.3 F 296.5 lbs 66 in 47.86 kg/m2 2.50 m2 92 % 02/26/2017 11:11:00 AM 136 mmHg 72 mmHg 78 bpm 22 rpm 97.2 F 301.25 lbs 66 in 48.6225 kg/m 2.5225 m 96 % 02/12/2017 11:42:00 AM 136 mmHg 76 mmHg 88 bpm 24 rpm 97.4 F 303 lbs 66 in 48.90 kg/m2 2.53 m2 94 % 02/05/2017 9:37:00 AM 150 mmHg 78 mmHg 86 bpm 22 rpm 97.4 F 302.375 lbs 66 in 48.8041 kg/m 2.5272 m 95 % 02/04/2017 11:24:00 AM 140 mmHg 80 mmHg 82 bpm 24 rpm 98.4 F 309.125 lbs 66 in 49.89 kg/m2 2.56 m2 93 % 01/13/2017 2:48:00 PM 154 mmHg 92 mmHg 81 bpm 20 rpm 97.8 F 301.125 lbs 97 % 12/04/2016 8:22:00 AM 146 mmHg 78 mmHg 102 bpm 18 rpm 96.8 F 294.25 lbs 66 in 47.4927 kg/m 2.493 m 97 % 11/06/2014 11:02:00 AM 132 mmHg 68 mmHg 84 bpm 18 rpm 97.4 F 275 lbs 66 in 44.39 kg/m2 2.41 m2 10/03/2014 1:04:00 PM 162 mmHg 80 mmHg 72 bpm 18 rpm 96.9 F 274.375 lbs 66 in 44.2848 kg/m 2.4074 m 09/04/2014 1:08:00 PM 124 mmHg 60 mmHg 82 bpm 16 rpm 9.5 F 272 lbs 66 in 43.90 kg/m2 2.40 m2 06/12/2014 2:05:00 PM 124 mmHg 74 mmHg 78 bpm 16 rpm 98.6 F 272 lbs 63 in 48.1821 kg/m 2.3418 m 12/12/2013 1:41:00 PM 124 mmHg 82 mmHg 66 bpm 16 rpm 97.4 F 284 lbs 64 in 48.75 kg/m2 2.41 m2 05/25/2013 3:55:00 PM 144 mmHg 92 mmHg 70 bpm 16 rpm 97.6 F 286 lbs 63 in 50.6621 kg/m 2.4013 m 12/20/2012 1:13:00 PM 144 mmHg 92 mmHg 84 bpm 16 rpm 98 F 282 lbs 63 in 49.95 kg/m2 2.38 m2 06/16/2012 12:54:00 PM 142 mmHg 80 mmHg 84 bpm 16 rpm 97.3 F 284 lbs 63 in 50.3078 kg/m 2.3929 m 01/20/2012 9:10:00 AM 125 mmHg 68 mmHg 75 bpm 98.3 F 287.25 lbs 64 in 49.31 kg/m2 2.43 m2 93 % 12/17/2011 1:07:00 PM 144 mmHg 94 mmHg 82 bpm 16 rpm 97.6 F 294 lbs 64 in 50.4645 kg/m 2.4539 m 11/25/2011 9:27:00 AM 128 mmHg 78 mmHg 127 bpm 98.2 F 295.375 lbs 92 % 08/06/2011 9:58:00 AM 130 mmHg 68 mmHg 100 bpm 97.2 F 295 lbs 94 % 06/16/2011 1:04:00 PM 154 mmHg 76 mmHg 72 bpm 16 rpm 98.6 F 295 lbs 63.5 in 51.4367 kg/m 2.4485 m 06/12/2011 8:45:00 AM 118 mmHg 62 mmHg 92 bpm 20 rpm 97.8 F 290.375 lbs 63.5 in 50.63 kg/m2 2.43 m2 94 % 05/08/2011 2:01:00 PM 125 mmHg 82 mmHg 77 bpm 98.7 F 289.375 lbs 03/24/2011 2:57:00 PM 140 mmHg 78 mmHg 84 bpm 20 rpm 97.1 F 289.25 lbs 66 in 46.6857 kg/m 2.4718 m 91 % 02/06/2011 2:25:00 PM 100 mmHg 60 mmHg 75 bpm 18 rpm 98.4 F 293.375 lbs 66 in 47.35 kg/m2 2.49 m2 97 % 01/20/2011 1:04:00 PM 162 mmHg 74 mmHg 80 bpm 16 rpm 97.9 F 291 lbs 11/07/2010 1:57:00 PM 130 mmHg 70 mmHg 87 bpm 20 rpm 98 F 290.125 lbs 66 in 46.8269 kg/m 2.4755 m 93 % 09/19/2010 8:51:00 AM 152 mmHg 76 mmHg 88 bpm 16 rpm 98 F 292.25 lbs 08/20/2010 8:56:00 AM 128 mmHg 76 mmHg 84 bpm 18 rpm 97.4 F 292 lbs 08/07/2010 6:37:00 PM 158 mmHg 84 mmHg 84 bpm 18 rpm 97.2 F 293 lbs 66 in 47.291 kg/m 2.4877 m 94 % 08/06/2010 2:54:00 PM 140 mmHg 80 mmHg 78 bpm 20 rpm 97.4 F 293 lbs 66 in 47.29 kg/m2 2.49 m2 95 % 07/05/2010 8:13:00 AM 152 mmHg 84 mmHg 84 bpm 18 rpm 97.3 F 290.25 lbs 04/30/2010 1:44:00 PM 160 mmHg 70 mmHg 76 bpm 20 rpm 97.8 F 288.125 lbs 66 in 46.5041 kg/m 2.467 m 97 % 01/28/2010 3:00:00 PM 130 mmHg 78 mmHg 70 bpm 18 rpm 97.7 F 285.25 lbs 66 in 46.04 kg/m2 2.45 m2 96 % 12/07/2009 1:47:00 PM 150 mmHg 80 mmHg 82 bpm 18 rpm 97.4 F 286.375 lbs 66 in 46.2217 kg/m 2.4595 m 95 % 11/21/2009 9:18:00 AM 146 mmHg 66 mmHg 80 bpm 18 rpm 97.2 F 289.25 lbs 11/06/2009 3:45:00 PM 140 mmHg 80 mmHg 85 bpm 20 rpm 97.4 F 288.125 lbs 66 in 46.5041 kg/m 2.467 m 94 % 10/23/2009 10:20:00 AM 132 mmHg 74 mmHg 72 bpm 18 rpm 97 F 291.125 lbs 97 % Social History Name Description Comments Tobacco Former smoker Denies illicit substance abuse 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 Alcohol Use 2-3oz wine at hs & mixed drink 2Xs /yr Lives with spouse in a house with 2 grown children High school graduate Unemployed History of Procedures Date Ordered Description Order Status 07/30/2011 12:00 AM COMPLETE CBC W/AUTO DIFF WBC Reviewed 07/30/2011 12:00 AM COMPREHEN METABOLIC PANEL Reviewed 07/30/2011 12:00 AM LIPID PANEL Reviewed 07/30/2011 12:00 AM GLYCOSYLATED HEMOGLOBIN TEST Reviewed 08/06/2011 12:00 AM Immunization administration, Medicare flu Reviewed 08/06/2011 12:00 AM Fluzone MEDICARE Only Reviewed 11/25/2011 12:00 AM COMPLETE CBC W/AUTO DIFF WBC Reviewed 11/25/2011 12:00 AM COMPREHEN METABOLIC PANEL Reviewed 11/25/2011 12:00 AM GLYCOSYLATED HEMOGLOBIN TEST Reviewed 11/25/2011 12:00 AM LIPID PANEL Reviewed 11/25/2011 12:00 AM ASSAY THYROID STIM HORMONE Reviewed 01/20/2012 12:00 AM METABOLIC PANEL TOTAL CA Reviewed 01/20/2012 12:00 AM COMPLETE CBC W/AUTO DIFF WBC Reviewed 01/20/2012 12:00 AM X-RAY EXAM OF FOOT Reviewed 01/20/2012 12:00 AM ELECTROCARDIOGRAM COMPLETE Reviewed 01/13/2017 12:00 AM COMPREHEN METABOLIC PANEL Reviewed 02/04/2017 12:00 AM COMPREHEN METABOLIC PANEL Reviewed 02/04/2017 12:00 AM ASSAY OF NATRIURETIC PEPTIDE Reviewed 02/04/2017 12:00 AM CHEST X-RAY 2VW FRONTAL&LATL Reviewed 02/04/2017 12:00 AM COMPLETE CBC W/AUTO DIFF WBC Reviewed 02/04/2017 12:00 AM ELECTROCARDIOGRAM TRACING Reviewed 02/12/2017 12:00 AM METABOLIC PANEL TOTAL CA Reviewed 02/12/2017 12:00 AM ASSAY OF NATRIURETIC PEPTIDE Reviewed 03/17/2017 12:00 AM COMPREHEN METABOLIC PANEL Reviewed 03/23/2017 12:00 AM COMPREHEN METABOLIC PANEL Reviewed 08/28/2017 12:00 AM URNLS DIP STICK/TABLET RGNT AUTO W/O MICROSCOPY Reviewed 08/12/2017 12:00 AM ASSAY THYROID STIM HORMONE Reviewed 08/12/2017 12:00 AM ASSAY OF TOTAL THYROXINE Reviewed 08/12/2017 12:00 AM COMPREHEN METABOLIC PANEL Reviewed 08/12/2017 12:00 AM RBC SED RATE AUTOMATED Reviewed 08/12/2017 12:00 AM COMPLETE CBC W/AUTO DIFF WBC Reviewed 08/12/2017 12:00 AM RADIOLOGIC EXAM CHEST 2 VIEWS FRONTAL&LATERAL Reviewed 04/30/2010 12:00 AM COMPREHEN METABOLIC PANEL Reviewed 04/30/2010 12:00 AM LIPID PANEL Reviewed 04/30/2010 12:00 AM GLYCOSYLATED HEMOGLOBIN TEST Reviewed 09/23/2017 12:00 AM MRI LUMBAR SPINE W/O DYE Reviewed 02/11/2018 12:[address] HEAD/BRAIN W/O DYE Reviewed 07/06/2018 12:00 AM CHEST X-RAY 2VW FRONTAL&LATL Reviewed 03/31/2019 12:00 AM X-RAY EXAM OF FOOT Returned 07/31/2010 12:00 AM COMPREHEN METABOLIC PANEL Reviewed 07/31/2010 12:00 AM LIPID PANEL Reviewed 07/31/2010 12:00 AM GLYCOSYLATED HEMOGLOBIN TEST Reviewed 07/31/2010 12:00 AM ASSAY THYROID STIM HORMONE Reviewed 07/31/2010 12:00 AM ASSAY OF FREE THYROXINE Reviewed 01/21/2010 12:00 AM COMPREHEN METABOLIC PANEL Reviewed 01/21/2010 12:00 AM LIPID PANEL Reviewed 01/21/2010 12:00 AM GLYCOSYLATED HEMOGLOBIN TEST Reviewed 01/21/2010 12:00 AM ASSAY THYROID STIM HORMONE Reviewed 01/21/2010 12:00 AM ASSAY OF TOTAL THYROXINE Reviewed 08/06/2010 12:00 AM FLU VACCINE 3 YRS & > IM Reviewed 08/06/2010 12:00 AM Admin.Of M/C Cov.Vaccine-Flu Vacc. Reviewed 11/06/2010 12:00 AM COMPREHEN METABOLIC PANEL Reviewed 11/06/2010 12:00 AM LIPID PANEL Reviewed 11/06/2010 12:00 AM GLYCOSYLATED HEMOGLOBIN TEST Reviewed 08/07/2010 12:00 AM ELECTROCARDIOGRAM COMPLETE Reviewed 02/05/2011 12:00 AM COMPREHEN METABOLIC PANEL Reviewed 02/05/2011 12:00 AM LIPID PANEL Reviewed 02/05/2011 12:00 AM GLYCOSYLATED HEMOGLOBIN TEST Reviewed 05/08/2011 12:00 AM COMPREHEN METABOLIC PANEL Reviewed 05/08/2011 12:00 AM LIPID PANEL Reviewed 05/08/2011 12:00 AM GLYCOSYLATED HEMOGLOBIN TEST Reviewed 02/11/2011 12:00 AM MUSCLE TEST ONE LIMB Reviewed 02/11/2011 12:00 AM NERVE CONDUCTION, MOTOR Reviewed 02/11/2011 12:00 AM NERVE CONDUCTION, SENSORY Reviewed 03/24/2011 12:00 AM THER/PROPH/DIAG INJ SC/IM Reviewed 03/24/2011 12:00 AM Kenalog 40 Mg Im-[facility]#[id number] ([place]erry) Reviewed 09/04/2014 12:00 AM X-RAY EXAM OF FOOT Reviewed 10/03/2014 12:00 AM MRI BRAIN STEM W/O & W/DYE Reviewed 06/12/2011 12:00 AM ELECTROCARDIOGRAM COMPLETE Reviewed 06/12/2011 12:00 AM COMPLETE CBC W/AUTO DIFF WBC Reviewed 06/12/2011 12:00 AM COMPREHEN METABOLIC PANEL Reviewed Results Summary Date and Description Results 04/06/2009 12:00 AM Microalbumin/creat Ur-mRto 7 Albumin Ur-mCnc 1.10 mg/dLCreat Ur-mCnc 150.40 mg/mL 04/11/2009 12:00 AM Dexa Bone Scan Done Mammogram -Women over 40 Normal 10/16/2009 12:00 AM Cholest Cry Stone Ql IR 233.0 %LDLc SerPl-mCnc 144.0 mg/dLHDLc SerPl-mCnc 37.0 mg/dLTrigl SerPl-mCnc 233.0 mg/dLGlucose SerPl-mCnc 78.0 mg/dLHgb A1c Fr Bld 7.40 % 10/21/2009 3:13 PM Depression Has Depression HIV1+2 Ab Ser Ql no risk 10/23/2009 10:26 AM Dialated Eye Exam- Diabetic Referred Foot Exam-Diabetic Done Dental Inspection Reffered 10/23/2009 10:27 AM Colonoscopy-Women and Men over 50 Normal Aspirin reccommended Reccommended 10/23/2009 10:43 AM Pap Smear Declined 12/07/2009 12:00 AM Foot Exam-Diabetic Done 01/17/2010 12:00 AM Cholest Cry Stone Ql IR 144.0 %LDLc SerPl-mCnc 78.0 mg/dLGlucose SerPl-mCnc 90.0 mg/dL 01/17/2010 9:05 AM LDL (CALC) 78.0 mg/dLTOT CHOL/HDL 3.8 TRIGLYCERIDES 138.0 mg/dLHDL 38.0 mg/dLCHOLESTEROL 144.0 mg/dLTSH 0.830 uIU/mLT4 8.50 ug/dLGLYCOHEMOGLOBIN A1C 7.4 GLUCOSE 90.0 mg/dLSODIUM 139.0 mmol/LPOTASSIUM 4.10 mmol/LCHLORIDE 103.0 mmol/LCO2 28.0 mmol/LBUN 16.0 mg/dLCREATININE 0.80 mg/dLSGOT/AST 22.0 IU/LSGPT/ALT 13.0 IU/LALK PHOS 62.0 IU/LTOTAL PROTEIN 7.50 g/dLALBUMIN 3.80 g/dLTOTAL BILI 0.40 mg/dLCALCIUM 9.70 mg/dLAGE 69 GFR NonAA 71 GFR AA 86 eGFR >60 mL/min/1.73 m2eGFR AA* >60 01/28/2010 3:07 PM Foot Exam-Diabetic Done 04/22/2010 12:00 AM Cholest Cry Stone Ql IR 157.0 %LDLc SerPl-mCnc 79.0 mg/dLGlucose SerPl-mCnc 110.0 mg/dL 04/22/2010 8:25 AM TRIGLYCERIDES 205.0 mg/dLCHOLESTEROL 157.0 mg/dLHDL 37.0 mg/dLTOT CHOL/HDL 4.2 LDL (CALC) 79.0 mg/dLGLYCOHEMOGLOBIN A1C 7.0 %GLUCOSE 110.0 mg/dLSODIUM 143.0 mmol/LPOTASSIUM 4.80 mmol/LCHLORIDE 105.0 mmol/LCO2 27.0 mmol/LBUN 18.0 mg/dLCREATININE 0.90 mg/dLSGOT/AST 22.0 IU/LSGPT/ALT 21.0 IU/LALK PHOS 72.0 IU/LTOTAL PROTEIN 7.20 g/dLALBUMIN 4.0 g/dLTOTAL BILI 0.30 mg/dLCALCIUM 9.70 mg/dLAGE 69 GFR NonAA 62 GFR AA 75 eGFR >60 mL/min/1.73 m2eGFR AA* >60 04/30/2010 12:00 AM Dialated Eye Exam- Diabetic Referred Foot Exam-Diabetic Done Dental Inspection Reffered 05/07/2010 12:00 AM Mammogram -Women over 40 Normal 07/30/2010 12:00 AM Cholest Cry Stone Ql IR 150.0 %LDLc SerPl-mCnc 76.0 mg/dLGlucose SerPl-mCnc 93.0 mg/dL 07/30/2010 8:19 AM TRIGLYCERIDES 156.0 mg/dLCHOLESTEROL 150.0 mg/dLHDL 43.0 mg/dLTOT CHOL/HDL 3.5 LDL (CALC) 76.0 mg/dLGLYCOHEMOGLOBIN A1C 7.40 % 08/06/2010 12:00 AM Dialated Eye Exam- Diabetic Done Foot Exam-Diabetic Done Dental Inspection Reffered 10/31/2010 12:00 AM Cholest Cry Stone Ql IR 149.0 %LDLc SerPl-mCnc 62.0 mg/dLGlucose SerPl-mCnc 125.0 mg/dL 10/31/2010 8:43 AM TRIGLYCERIDES 262.0 mg/dLCHOLESTEROL 149.0 mg/dLHDL 35.0 mg/dLTOT CHOL/HDL 4.3 LDL (CALC) 62.0 mg/dLGLYCOHEMOGLOBIN A1C 6.70 %GLUCOSE 125.0 mg/dLSODIUM 140.0 mmol/LPOTASSIUM 4.10 mmol/LCHLORIDE 107.0 mmol/LCO2 24.0 mmol/LBUN 16.0 mg/dLCREATININE 0.80 mg/dLSGOT/AST 18.0 IU/LSGPT/ALT 14.0 IU/LALK PHOS 72.0 IU/LTOTAL PROTEIN 6.90 g/dLALBUMIN 3.90 g/dLTOTAL BILI 0.20 mg/dLCALCIUM 9.50 mg/dLAGE 69 GFR NonAA 71 GFR AA 86 eGFR >60 mL/min/1.73 m2eGFR AA* >60 11/07/2010 2:03 PM Dialated Eye Exam- Diabetic Referred Foot Exam-Diabetic Done Dental Inspection Reffered 11/07/2010 2:04 PM 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 Consult Done 01/30/2011 12:00 AM Cholest Cry Stone Ql IR 172.0 %LDLc SerPl-mCnc 84.0 mg/dLGlucose SerPl-mCnc 85.0 mg/dL 01/30/2011 8:52 AM TRIGLYCERIDES 224.0 mg/dLCHOLESTEROL 172.0 mg/dLHDL 43.0 mg/dLTOT CHOL/HDL 4.0 LDL (CALC) 84.0 mg/dLGLYCOHEMOGLOBIN A1C 7.70 %GLUCOSE 85.0 mg/dLSODIUM 142.0 mmol/LPOTASSIUM 4.40 mmol/LCHLORIDE 103.0 mmol/LCO2 28.0 mmol/LBUN 14.0 mg/dLCREATININE 0.80 mg/dLSGOT/AST 20.0 IU/LSGPT/ALT 20.0 IU/LALK PHOS 74.0 IU/LTOTAL PROTEIN 7.50 g/dLALBUMIN 4.20 g/dLTOTAL BILI 0.30 mg/dLCALCIUM 10.40 mg/dLAGE 70 GFR NonAA 71 GFR AA 86 eGFR >60 mL/min/1.73 m2eGFR AA* >60 02/06/2011 2:35 PM Pap Smear Declined HIV1+2 Ab Ser Ql no risk 02/06/2011 2:36 PM Depression Has Depression 02/06/2011 2:37 PM Aspirin reccommended Reccommended 02/06/2011 2:37 PM Dialated Eye Exam- Diabetic Referred Foot Exam-Diabetic Done Dental Inspection Reffered 04/29/2011 8:42 AM TRIGLYCERIDES 130.0 mg/dLCHOLESTEROL 171.0 mg/dLHDL 48.0 mg/dLTOT CHOL/HDL 3.6 LDL (CALC) 97.0 mg/dLGLUCOSE 107.0 mg/dLSODIUM 141.0 mmol/LPOTASSIUM 4.90 mmol/LCHLORIDE 105.0 mmol/LCO2 25.0 mmol/LBUN 15.0 mg/dLCREATININE 0.90 mg/dLSGOT/AST 24.0 IU/LSGPT/ALT 21.0 IU/LALK PHOS 79.0 IU/LTOTAL PROTEIN 7.20 g/dLALBUMIN 4.10 g/dLTOTAL BILI 0.30 mg/dLCALCIUM 10.0 mg/dLAGE 70 GFR NonAA 62 GFR AA 75 eGFR >60 mL/min/1.73 m2eGFR AA* >60 06/12/2011 9:40 AM WBC 10.7 RBC 4.77 HGB 13.30 g/dLHCT 43.50 %MCV 91.0 fLMCH 27.90 pgMCHC 30.60 g/dLRDW SD 51 RDW CV 15.20 %MPV 10.90 fLPLT 246 NRBC# 0.12 NRBC% 1.1 %NEUT 68.70 %%LYMP 22.10 %%MONO 6.60 %%EOS 2.30 %%BASO 0.30 %#NEUT 7.37 #LYMP 2.37 #MONO 0.71 #EOS 0.25 #BASO 0.03 MANUAL DIFF NOT IND GLUCOSE 137.0 mg/dLSODIUM 141.0 mmol/LPOTASSIUM 4.60 mmol/LCHLORIDE 104.0 mmol/LCO2 23.0 mmol/LBUN 14.0 mg/dLCREATININE 0.80 mg/dLSGOT/AST 26.0 IU/LSGPT/ALT 21.0 IU/LALK PHOS 69.0 IU/LTOTAL PROTEIN 7.20 g/dLALBUMIN 3.80 g/dLTOTAL BILI 0.40 mg/dLCALCIUM 9.60 mg/dLAGE 70 GFR NonAA 71 GFR AA 86 eGFR >60 mL/min/1.73 m2eGFR AA* >60 07/31/2011 8:37 AM WBC 11.3 RBC 4.58 HGB 12.80 g/dLHCT 40.60 %MCV 89.0 fLMCH 27.90 pgMCHC 31.50 g/dLRDW SD 48 RDW CV 14.90 %MPV 10.30 fLPLT 254 NRBC# 0.00 NRBC% 0.0 %NEUT 63.90 %%LYMP 26.70 %%MONO 6.20 %%EOS 2.80 %%BASO 0.40 %#NEUT 7.20 #LYMP 3.01 #MONO 0.70 #EOS 0.31 #BASO 0.04 MANUAL DIFF NOT IND GLUCOSE 106.0 mg/dLSODIUM 141.0 mmol/LPOTASSIUM 4.0 mmol/LCHLORIDE 105.0 mmol/LCO2 26.0 mmol/LBUN 18.0 mg/dLCREATININE 0.80 mg/dLSGOT/AST 15.0 IU/LSGPT/ALT 10.0 IU/LALK PHOS 72.0 IU/LTOTAL PROTEIN 7.10 g/dLALBUMIN 4.10 g/dLTOTAL BILI 0.50 mg/dLCALCIUM 9.60 mg/dLAGE 70 GFR NonAA 71 GFR AA 86 eGFR >60 mL/min/1.73 m2eGFR AA* >60 TRIGLYCERIDES 158.0 mg/dLCHOLESTEROL 162.0 mg/dLHDL 42.0 mg/dLTOT CHOL/HDL 3.9 LDL (CALC) 88.0 mg/dLGLYCOHEMOGLOBIN A1C 6.90 % 11/25/2011 12:03 PM WBC 9.4 RBC 4.64 HGB 12.80 g/dLHCT 41.60 %MCV 90.0 fLMCH 27.60 pgMCHC 30.80 g/dLRDW SD 49 RDW CV 15.10 %MPV 11.20 fLPLT 266 NRBC# 0.00 NRBC% 0.0 %NEUT 67.10 %%LYMP 23.80 %%MONO 6.60 %%EOS 2.20 %%BASO 0.30 %#NEUT 6.30 #LYMP 2.24 #MONO 0.62 #EOS 0.21 #BASO 0.03 MANUAL DIFF NOT IND FREE T4 1.16 TSH 0.410 uIU/mLGLUCOSE 113.0 mg/dLSODIUM 142.0 mmol/LPOTASSIUM 4.50 mmol/LCHLORIDE 106.0 mmol/LCO2 25.0 mmol/LBUN 12.0 mg/dLCREATININE 0.70 mg/dLSGOT/AST 15.0 IU/LSGPT/ALT 11.0 IU/LALK PHOS 61.0 IU/LTOTAL PROTEIN 6.90 g/dLALBUMIN 4.10 g/dLTOTAL BILI 0.30 mg/dLCALCIUM 9.20 mg/dLAGE 70 GFR NonAA 83 GFR AA 101 eGFR >60 mL/min/1.73 m2eGFR AA* >60 TRIGLYCERIDES 149.0 mg/dLCHOLESTEROL 148.0 mg/dLHDL 38.0 mg/dLTOT CHOL/HDL 3.9 LDL (CALC) 80.0 mg/dLGLYCOHEMOGLOBIN A1C 7.40 % 01/20/2012 9:50 AM WBC 11.0 RBC 4.72 HGB 13.0 g/dLHCT 41.90 %MCV 89.0 fLMCH 27.50 pgMCHC 31.0 g/dLRDW SD 47 RDW CV 14.60 %MPV 10.70 fLPLT 272 NRBC# 0.00 NRBC% 0.0 %NEUT 70.30 %%LYMP 20.80 %%MONO 5.70 %%EOS 2.90 %%BASO 0.30 %#NEUT 7.75 #LYMP 2.29 #MONO 0.63 #EOS 0.32 #BASO 0.03 MANUAL DIFF NOT IND GLUCOSE 135.0 mg/dLSODIUM 140.0 mmol/LPOTASSIUM 4.40 mmol/LCHLORIDE 104.0 mmol/LCO2 22.0 mmol/LBUN 14.0 mg/dLCREATININE 0.70 mg/dLCALCIUM 9.20 mg/dLAGE 71 GFR NonAA 82 GFR AA 99 eGFR >60 mL/min/1.73 m2eGFR AA* >60 01/16/2017 9:40 AM GLUCOSE 104.0 mg/dLSODIUM 144.0 mmol/LPOTASSIUM 3.90 mmol/LCHLORIDE 103.0 mmol/LCO2 29.0 mmol/LBUN 23.0 mg/dLCREATININE 1.10 mg/dLSGOT/AST 14.0 IU/LSGPT/ALT 13.0 IU/LALK PHOS 83.0 IU/LTOTAL PROTEIN 7.10 g/dLALBUMIN 3.90 g/dLTOTAL BILI 0.50 mg/dLCALCIUM 9.90 mg/dLAGE 76 GFR NonAA 48 GFR AA 58 eGFR 48 eGFR AA* 58 02/04/2017 1:45 PM WBC 10.1 RBC 4.13 HGB 11.20 g/dLHCT 38.40 %MCV 93.0 fLMCH 27.10 pgMCHC 29.20 g/dLRDW SD 54 RDW CV 15.90 %MPV 10.30 fLPLT 273 NRBC# 0.00 NRBC% 0.0 %NEUT 72.60 %%LYMP 19.50 %%MONO 5.0 %%EOS 1.80 %%BASO 0.30 %#NEUT 7.30 #LYMP 1.96 #MONO 0.50 #EOS 0.18 #BASO 0.03 MANUAL DIFF NOT IND GLUCOSE 76.0 mg/dLSODIUM 145.0 mmol/LPOTASSIUM 3.90 mmol/LCHLORIDE 105.0 mmol/LCO2 31.0 mmol/LBUN 20.0 mg/dLCREATININE 1.10 mg/dLSGOT/AST 14.0 IU/LSGPT/ALT 10.0 IU/LALK PHOS 82.0 IU/LTOTAL PROTEIN 8.30 g/dLALBUMIN 4.10 g/dLTOTAL BILI 0.60 mg/dLCALCIUM 10.20 mg/dLAGE 76 GFR NonAA 48 GFR AA 58 eGFR 48 eGFR AA* 58 BNP 583.0 pg/mL 02/12/2017 12:45 PM GLUCOSE 225.0 mg/dLSODIUM 144.0 mmol/LPOTASSIUM 4.0 mmol/LCHLORIDE 105.0 mmol/LCO2 26.0 mmol/LBUN 24.0 mg/dLCREATININE 1.30 mg/dLCALCIUM 9.30 mg/dLAGE 76 GFR NonAA 40 GFR AA 48 eGFR 40 eGFR AA* 48 BNP 385.0 pg/mL 03/17/2017 11:55 AM GLUCOSE 145.0 mg/dLSODIUM 142.0 mmol/LPOTASSIUM 3.20 mmol/LCHLORIDE 101.0 mmol/LCO2 29.0 mmol/LBUN 12.0 mg/dLCREATININE 1.10 mg/dLSGOT/AST 33.0 IU/LSGPT/ALT 17.0 IU/LALK PHOS 78.0 IU/LTOTAL PROTEIN 7.30 g/dLALBUMIN 3.90 g/dLTOTAL BILI 0.40 mg/dLCALCIUM 9.60 mg/dLAGE 76 GFR NonAA 48 GFR AA 58 eGFR 48 eGFR AA* 58 04/06/2017 9:40 AM GLUCOSE 201.0 mg/dLSODIUM 143.0 mmol/LPOTASSIUM 3.10 mmol/LCHLORIDE 101.0 mmol/LCO2 32.0 mmol/LBUN 11.0 mg/dLCREATININE 1.20 mg/dLSGOT/AST 26.0 IU/LSGPT/ALT 17.0 IU/LALK PHOS 85.0 IU/LTOTAL PROTEIN 7.10 g/dLALBUMIN 3.80 g/dLTOTAL BILI 0.70 mg/dLCALCIUM 9.80 mg/dLAGE 76 GFR NonAA 44 GFR AA 53 eGFR 44 eGFR AA* 53 08/12/2017 12:25 PM SEDRATE 102.0 mm/hrGLUCOSE 228.0 mg/dLSODIUM 142.0 mmol/LPOTASSIUM 4.30 mmol/LCHLORIDE 102.0 mmol/LCO2 33.0 mmol/LBUN 15.0 mg/dLCREATININE 1.30 mg/dLSGOT/AST 36.0 IU/LSGPT/ALT 20.0 IU/LALK PHOS 273.0 IU/LTOTAL PROTEIN 8.30 g/dLALBUMIN 3.50 g/dLTOTAL BILI 0.60 mg/dLCALCIUM 10.20 mg/dLAGE 76 GFR NonAA 40 GFR AA 48 eGFR 40 eGFR AA* 48 WBC 7.2 RBC 4.23 HGB 12.0 g/dLHCT 38.80 %MCV 92.0 fLMCH 28.40 pgMCHC 30.90 g/dLRDW SD 54 RDW CV 16.20 %MPV 10.80 fLPLT 217 NRBC# 0.00 NRBC% 0.0 %NEUT 75.10 %%LYMP 12.30 %%MONO 8.70 %%EOS 2.90 %%BASO 0.60 %#NEUT 5.43 #LYMP 0.89 #MONO 0.63 #EOS 0.21 #BASO 0.04 MANUAL DIFF NOT IND TSH 2.050 uIU/mLT4 11.40 ug/dL 08/28/2017 11:13 AM COLOR YELLOW APPEARANCE CLEAR SPEC GRAV <=1.005 pH 7.0 PROTEIN NEGATIVE GLUCOSE NEGATIVE mg/dLKETONE NEGATIVE BILIRUBIN NEGATIVE BLOOD NEGATIVE NITRITE NEGATIVE [place] SCREEN SMALL MICRO INDICATED? SEE BELOW WBC/HPF 0-5 RBC/HPF NEGATIVE CASTS/LPF NEGATIVE /LPFCRYSTALS NEGATIVE MUCOUS THRDS NEGATIVE BACTERIA 1+ EPITH CELLS 1+ SQUAMOUS /HPFTRICHOMONAS NEGATIVE YEAST NEGATIVE CULT SET UP? YES 03/04/2019 1:20 PM Falls in last 6 months? Yes Unsteady or worry about falling? Yes Fall Risk Assessment At Risk History Of Immunizations Name Date Admin Mfg Name Mfg Code Trade Name Lot# Route Inj Vis Given Vis Pub CVX Influenza 09/04/2008 Not Entered NE Not Entered Not Entered Not Entered 11/02/2018 11/02/2018 999 Influenza 08/06/2010 [employer] Arjun. NOV Fluvirin > 12 Years [id number] Intramuscular Right Deltoid 08/06/2010 06/12/2009 999 Influenza 08/06/2011 [employer] FLUZONE [id number] Intramuscular Left Arm 08/06/2011 05/28/2011 141 History of Past Illness Name Date of Onset Comments Benign Essential Hypertension Oct 23 2009 10:44AM Hyperlipidemia Oct 23 2009 10:44AM Diabetes Mellitus, Type II, Uncontrolled Oct 23 2009 10:44AM Low Back Pain Oct 23 2009 10:44AM Major Depression (Single Episode) Oct 23 2009 10:44AM Candidiasis Of Skin And Nails Oct 23 2009 10:44AM Hypothyroidism, Acquired Oct 23 2009 10:44AM Major Depression (Single Episode) Nov 06 2009 4:51PM Hyperlipidemia Hypothyroidism, acquired Neuropathy Allergic Rhinitis spinal stenosis Chronic Back Pain depression Diabetes Mellitus, Type II degenerative disk disease Hypertension, Benign Essential Actinic keratosis Major Depression (Single Episode) 10/23/2009 SI joint pain/problems left Lumbar HNP w/o myelopathy; radiculitis Nov 21 2009 9:22AM Lumbar degenerative disc disease Nov 21 2009 9:22AM Myofascial pain Nov 21 2009 9:22AM Major Depression (Recurrent) Dec 07 2009 1:58PM Benign Essential Hypertension Jan 28 2010 3:19PM Hyperlipidemia Jan 28 2010 3:19PM Diabetes Mellitus, Type II Jan 28 2010 3:19PM Hypothyroidism, Acquired Jan 28 2010 3:19PM Low Back Pain Jan 28 2010 3:19PM Major Depression (Single Episode) Apr 30 2010 1:41PM Allergic Rhinitis Apr 30 2010 1:41PM Diabetes Mellitus, Type II Apr 30 2010 1:41PM Hyperlipidemia Apr 30 2010 1:41PM Hypothyroidism, Acquired Apr 30 2010 1:41PM Neuropathy Apr 30 2010 1:41PM Hypertension, Benign Essential Apr 30 2010 1:41PM Lumbar HNP w/o myelopathy; radiculitis Sep 2009 8:21AM Lumbar degenerative disc disease Jul 05 2010 8:21AM Cervicalgia Jul 05 2010 8:21AM Allergic Rhinitis Aug 06 2010 2:46PM Diabetes Mellitus, Type II Aug 06 2010 2:46PM Hyperlipidemia Aug 06 2010 2:46PM Hypothyroidism, Acquired Aug 06 2010 2:46PM Neuropathy Aug 06 2010 2:46PM Hypertension, Benign Essential Aug 06 2010 2:46PM Flu Aug 06 2010 3:04PM Preoperative Examination Aug 07 2010 7:14PM Lumbar HNP w/o myelopathy; radiculitis Aug 20 2010 8:57AM Lumbar degenerative disc disease Aug 20 2010 8:57AM Cervicalgia Aug 20 2010 8:57AM Carpal Tunnel Syndrome Aug 20 2010 8:57AM Lumbar HNP w/o myelopathy; radiculitis Sep 19 2010 8:51AM Lumbar degenerative disc disease Sep 19 2010 8:51AM Cervicalgia Sep 19 2010 8:51AM Carpal Tunnel Syndrome Sep 19 2010 8:51AM Allergic Rhinitis Nov 07 2010 1:51PM Diabetes Mellitus, Type II Nov 07 2010 1:51PM Hyperlipidemia Nov 07 2010 1:51PM Hypothyroidism, Acquired Nov 07 2010 1:51PM Neuropathy Nov 07 2010 1:51PM Hypertension, Benign Essential Nov 07 2010 1:51PM Diabetes Mellitus, Type II 06/01/2015 Lumbar HNP w/o myelopathy; radiculitis Jan 20 2011 1:05PM Lumbar degenerative disc disease Jan 20 2011 1:05PM Cervicalgia Jan 20 2011 1:05PM Carpal Tunnel Syndrome Jan 20 2011 1:05PM Allergic Rhinitis Feb 06 2011 2:35PM Diabetes Mellitus, Type II Feb 06 2011 2:35PM Hyperlipidemia Feb 06 2011 2:35PM Hypothyroidism, Acquired Feb 06 2011 2:35PM Neuropathy Feb 06 2011 2:35PM Hypertension, Benign Essential Feb 06 2011 2:35PM Pain in limb Feb 11 2011 10:15AM Skin Sensation Disturbance Feb 11 2011 10:15AM Cough Mar 24 2011 3:01PM Wheezing Mar 24 2011 3:01PM Hypertensive Heart Disease With Heart Failure 12/04/2016 Diabetes mellitus with neurological manifestations, uncontrolled 12/04/2016 General Medical Exam, Adult Jun 12 2011 8:44AM Preoperative Examination Jun 12 2011 8:44AM Lumbar degenerative disc disease Jun 16 2011 1:08PM Cervicalgia Jun 16 2011 1:08PM Carpal Tunnel Syndrome Jun 16 2011 1:08PM Lumbar spinal stenosis Jun 16 2011 1:08PM Hypertension May 08 2011 1:59PM Diabetes Mellitus, Type II May 08 2011 1:59PM Hyperlipidemia May 08 2011 1:59PM Hypothyroidism May 08 2011 1:59PM Diabetes Mellitus, Type II Jul 30 2011 2:17PM Hyperlipidemia Jul 30 2011 2:17PM Hypertension, Benign Essential Jul 30 2011 2:17PM Diabetes Mellitus, Type II Aug 06 2011 9:54AM Flu Aug 22 2011 6:06PM Diabetes Mellitus, Type II Nov 25 2011 9:28AM Hyperlipidemia, unspecified Nov 25 2011 9:28AM Hypertension Nov 25 2011 9:28AM Hypothyroidism Nov 25 2011 9:28AM Lumbar degenerative disc disease Dec 17 2011 1:09PM Lumbar spinal stenosis Dec 17 2011 1:09PM Cervicalgia Dec 17 2011 1:09PM Carpal Tunnel Syndrome Dec 17 2011 1:09PM Preoperative Examination Jan 20 2012 9:12AM Lumbar degenerative disc disease Jun 16 2012 1:03PM Lumbar spinal stenosis Jun 16 2012 1:03PM Cervicalgia Jun 16 2012 1:03PM Carpal Tunnel Syndrome Jun 16 2012 1:03PM Lumbar degenerative disc disease Dec 20 2012 1:16PM Lumbar spinal stenosis Dec 20 2012 1:16PM Cervicalgia Dec 20 2012 1:16PM Carpal Tunnel Syndrome Dec 20 2012 1:16PM Lumbar degenerative disc disease May 25 2013 3:57PM Lumbar spinal stenosis May 25 2013 3:57PM Cervicalgia May 25 2013 3:57PM Carpal Tunnel Syndrome May 25 2013 3:57PM Lumbar degenerative disc disease Feb 2013 1:51PM Lumbar spinal stenosis Feb 2013 1:51PM Cervicalgia b 10 2013 1:51PM Degeneration of cervical intervertebral disc Dec 12 2013 1:51PM Lumbar degenerative disc disease Jun 12 2014 2:07PM Lumbar spinal stenosis Jun 12 2014 2:07PM Cervicalgia Jun 12 2014 2:07PM Degeneration of cervical intervertebral disc Jun 12 2014 2:07PM Dependent edema Jun 12 2014 2:07PM Stasis, venous Jun 12 2014 2:07PM Lumbar degenerative disc disease Sep 04 2014 1:33PM Lumbar spinal stenosis Sep 04 2014 1:33PM Cervicalgia Sep 04 2014 1:33PM Degeneration of cervical intervertebral disc Sep 04 2014 1:33PM Dependent edema Sep 04 2014 1:33PM Stasis, venous Sep 04 2014 1:33PM Injury, foot Sep 04 2014 1:33PM Gait abnormality Oct 03 2014 1:07PM Foot drop, bilateral Oct 03 2014 1:07PM Lumbar degenerative disc disease Nov 06 2014 11:04AM Lumbar spinal stenosis Nov 06 2014 11:04AM Degeneration of cervical intervertebral disc Nov 06 2014 11:04AM Lumbar degenerative disc disease Oct 03 2014 1:07PM Lumbar spinal stenosis Oct 03 2014 1:07PM Degeneration of cervical intervertebral disc Oct 03 2014 1:07PM Diabetes Mellitus, Type II Oct 03 2014 1:07PM Neuropathy Oct 03 2014 1:07PM Chronic Back Pain Nov 06 2014 11:04AM Diabetes Mellitus, Type II Nov 06 2014 11:04AM Neuropathy Nov 06 2014 11:04AM Type 2 diabetes mellitus with other diabetic neurological complication b 2016 8:35AM Type 2 diabetes mellitus with hyperglycemia Feb 2016 8:35AM Hypertensive heart disease with heart failure Feb 2 2016 8:35AM Lymphedema Dec 04 2016 8:35AM Acute on chronic combined systolic (congestive) and diastolic (congestive) heart failure Jan 13 2017 2:59PM Acute systolic (congestive) heart failure Feb 04 2017 11:34AM Hypertensive heart disease with heart failure Feb 12 2017 11:50AM Hypertensive heart disease with heart failure Feb 26 2017 11:18AM Hypertensive heart disease with heart failure Mar 17 2017 11:01AM Decreased potassium in the blood Mar 23 2017 4:39PM Type 2 diabetes mellitus with other diabetic neurological complication May 28 2017 10:20AM Type 2 diabetes mellitus with hyperglycemia May 28 2017 10:20AM Chronic combined systolic (congestive) and diastolic (congestive) heart failure May 28 2017 10:20AM Chronic fatigue Aug 12 2017 11:22AM Weakness Aug 12 2017 11:22AM Moderate single current episode of major depressive disorder Aug 12 2017 11:22AM Moderate single current episode of major depressive disorder Aug 28 2017 9:59AM Moderate single current episode of major depressive disorder Sep 23 2017 11:24AM Weakness of both lower extremities Sep 23 2017 11:24AM Diplopia Feb 11 2018 2:59PM Iron deficiency anemia due to chronic blood loss Feb 10 2018 1:47PM Diabetes mellitus, type II Feb 11 2018 2:59PM Acute on chronic combined systolic (congestive) and diastolic (congestive) heart failure Feb 11 2018 2:59PM Moderate episode of recurrent major depressive disorder Feb 11 2018 2:59PM Chronic diarrhea Jun 02 2018 3:52PM Acute renal injury Jun 22 2018 1:33PM Current severe episode of major depressive disorder without psychotic features without prior episode Jun 22 2018 1:33PM Shortness of breath Jul 06 2018 10:17AM Low oxygen saturation Jul 06 2018 10:17AM Cellulitis of left lower extremity Jul 28 2018 1:31PM Type 2 diabetes mellitus with diabetic chronic kidney disease Jul 28 2018 1:31PM End stage renal disease Jul 28 2018 1:31PM [employer]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 Jul 28 2018 1:31PM Dependence on renal dialysis Jul 28 2018 1:31PM Chronic renal failure, stage 5 Aug 27 2018 10:42AM Type 2 diabetes mellitus with diabetic neuropathy, unspecified Oct 20 2018 11:10AM [facility] (current) use of insulin Oct 20 2018 11:10AM Essential Hypertension Oct 20 2018 11:10AM Stage 5 chronic kidney disease not on chronic dialysis Oct 20 2018 11:10AM Acute cystitis without hematuria Nov 26 2018 8:25AM Skin ulcer of right foot, limited to breakdown of skin Nov 26 2018 8:25AM Skin ulcer of right foot, limited to breakdown of skin Dec 03 2018 1:34PM Herpes zoster Dec 28 2018 3:30PM Type 2 diabetes mellitus with diabetic neuropathy, unspecified Mar 04 2019 1:20PM [facility] (current) use of insulin Mar 04 2019 1:20PM Essential Hypertension Mar 04 2019 1:20PM Stage 5 chronic kidney disease not on chronic dialysis Mar 04 2019 1:20PM Fall Mar 31 2019 3:39PM Foot pain, right Mar 31 2019 3:39PM Transient alteration of awareness Mar 04 2019 1:20PM Payers Insurance Name Company Name Plan Name Plan Number Policy Number Policy Group Number Start Date Medicare RHC Medicare RHC [id number] [id number] N/A Medicare RHC Medicare RHC [id number] N/A Medicare Part A Medicare - Lab/Xray [id number] N/A Medicare Part B Medicare Of [place] [id number] Saturday, December 03, 2005 History of Encounters Visit Date Visit Type Provider 03/04/[address] Tony Sue MD 12/28/2018 Office visit Imani Aguilar APRN 12/03/[address] Tony Sue MD 11/26/[address] Tony Sue MD 11/18/2018 [facility] Madonna Bailey MD 10/20/[address] Tony Sue MD 10/03/2018 [facility] Madonna Bailey MD 08/27/[address] Tony Sue MD 07/28/[address] Tony Sue MD 07/06/2018 [facility] Madonna Bailey MD 06/22/2018 [facility] James Quevedo DO 06/22/[address] Tony Sue MD 06/02/[address] Tony Sue MD 02/11/2018 [facility] Madonna Bailey MD 02/11/[address] Tony Sue MD 02/10/2018 Office visit Jalil Mendez MD 02/09/2018 [facility] Madonna Bailey MD 11/23/2017 [facility] Madonna Bailey MD 09/23/[address] Tony Seu MD 08/28/[address] Tony Sue MD 08/12/[address] Tony Sue MD 05/28/[address] Tony Sue MD 03/17/[address] Tony Sue MD 03/07/2017 [facility]07[facility]2017 [facility] 02/26/[address] Tony Sue MD 02/12/[address] Tony Sue MD 02/05/[address] Tony Sue MD 02/04/2017 Laboratory Madonna Bailey MD 02/04/[address] Tony Sue MD 01/13/[address] Tony Sue MD 12/19/2016 Hospital Madonna Bailey MD 12/18/2016 [facility] Javier Carreno MD 12/04/[address] Tony Sue MD 11/06/2014 Office visit Yamilet VALLES 10/03/2014 Office visit Yamilet VALLES 09/04/2014 Office visit Yamilet VALLES 06/12/2014 Office visit Yamilet VALLES 12/12/2013 Office visit Yamilet VALLES 05/25/2013 Office visit Jovon Ly MD 12/20/2012 Office visit Jovon Ly MD 06/16/2012 Office visit Jovon Ly MD 01/20/2012 Hospital Madonna Bailey MD 01/20/2012 Office visit Lemuel Rivera MD 12/17/2011 Office visit Jovon Ly MD 11/25/2011 Office visit Lemuel Rivera MD 08/06/2011 Office visit Lemuel Rivera MD 06/16/2011 Office visit Jovon Ly MD 06/12/2011 [facility] Madonna Bailey MD 06/12/2011 Office visit Lemuel Rivera MD 05/08/2011 Office visit Lemuel Rivera MD 03/24/2011 Office visit Jalil Terry DO 02/11/2011 Procedures Jovon Ly MD 02/06/2011 Office visit Jalil Terry DO 01/20/2011 Office visit Jovon Ly MD 11/07/2010 Office visit Jalil Terry DO 09/19/2010 Office visit Jovon Ly MD 08/20/2010 Office visit Jovon Ly MD 08/07/2010 Office visit Jalil Terry DO 08/06/2010 Office visit Jalil Terry DO 07/05/2010 Office visit Jovon Ly MD 04/30/2010 Office visit Jalil Terry DO 01/28/2010 Office visit Jalil Terry DO 12/07/2009 Office visit Jalil Terry DO 11/21/2009 Office visit Jovon Ly MD 11/06/2009 Office visit Jalil Terry DO 10/23/2009 Office visit Jalil Terry DO 09/12/2009 Office visit Jovon Ly MD 07/25/2009 Office visit Jalil Terry DO 07/17/2009 Office visit Jovon Ly MD 06/26/2009 Procedures Jovon Ly MD
--- OUTSIDE RECORDS SUMMARY | 2019-05-12 11:18 | XMS REPORT ---
Author Author Tony Sue Organization [facility] Address [address] [place] [id number] Care Team Providers Care Computer Clerk Name Role Phone Tony Sue PCP Tony Sue PreferredProvider Allergies and Adverse Reactions Name Reaction Notes SULFA (SULFONAMIDES) IV DYE, IODINE CONTAINING Wellbutrin Plan of Treatment Planned Activity Comments Planned Date Planned Time Plan/Goal FOOT 3 VIEWS 03/31/2019 12:00 AM Medications Active Name Start Date Estimated Completion [...] UNDER THE TONGUE EVERY 4 HOURS NEEDED mirtazapine 15 mg oral tablet 12/31/2018 TAKE 1 TABLET BY MOUTH DAILY gabapentin 300 mg oral capsule 02/02/2019 TAKE 1 CAPSULE BY MOUTH THREE TIMES DAILY levothyroxine 125 mcg oral tablet 02/02/2019 TAKE 1 TABLET BY MOUTH DAILY furosemide 80 mg oral tablet 02/02/2019 TAKE 1 TABLET BY MOUTH DAILY amiodarone 200 mg oral tablet 02/02/2019 TAKE 2 TABLETS (400MG) BY MOUTH DAILY simvastatin 20 mg oral tablet 02/02/2019 TAKE 1 TABLET BY MOUTH AT BEDTIME clopidogrel 75 mg oral tablet 02/14/2019 TAKE 1 TABLET BY MOUTH DAILY Renvela 800 mg oral tablet take 1 tablet (800 mg) by oral route 3 times per day with food midodrine 10 mg oral tablet 03/10/2019 TAKE 1 TABLET BY MOUTH THREE TIMES A WEEK ON DIALYSIS DAYS Name Start Date Expiration Date SIG Comments [...] NEEDED Problem List Description Status Onset Allergic rhinitis Active Chronic Back Pain Active degenerative disk [...] rpm 98.1 F 228.375 lbs 64 in 39.20 kg/m2 2.16 m2 96 % 11/26/2018 8:23:00 AM 122 mmHg 78 mmHg 56 bpm 18 rpm 98.2 F 231 lbs 64 in 39.6507 kg/m 2.1752 m 94 % 10/20/2018 11:07:00 AM 118 mmHg 72 mmHg 50 bpm 17 rpm 97.7 F 231.5 lbs 64 in 39.74 kg/m2 2.18 m2 94 % 08/27/2018 10:39:00 AM 120 mmHg 67 mmHg 51 bpm 20 rpm 97.5 F 249 lbs 64 in 42.7403 kg/m 2.2583 m 97 % 07/28/2018 1:25:00 PM 99 mmHg 40 mmHg 55 bpm 18 rpm 97.5 F 246 lbs 64 in 42.23 kg/m2 2.24 m2 97 % 07/28/2018 1:25:00 PM 99 mmHg 40 mmHg 55 bpm 18 rpm 97.5 F 246 lbs 64 in 42.23 kg/m2 2.24 m2 97 % 06/22/2018 1:26:00 PM 118 mmHg 76 mmHg 58 bpm 18 rpm 97.5 F 232 lbs 64 in 39.8223 kg/m 2.1799 m 96 % 06/02/2018 3:47:00 PM 117 mmHg 65 mmHg 54 bpm 20 rpm 97.2 F 228 lbs 64 in 39.14 kg/m2 2.16 m2 92 % 02/11/2018 2:54:00 PM 110 mmHg 78 mmHg 56 bpm 20 rpm 97.9 F 268 lbs 64 in 46.0016 kg/m 2.3429 m 99 % 02/10/2018 1:46:00 PM 114 mmHg 66 mmHg 57 bpm 16 rpm 97.9 F 272 lbs 64 in 46.69 kg/m2 2.36 m2 96 % 09/23/2017 11:20:00 AM 126 mmHg 70 mmHg 74 bpm 20 rpm 97.4 F 288.25 lbs 66 in 46.5243 kg/m 2.4675 m 93 % 08/28/2017 9:55:00 AM 124 mmHg 58 mmHg 77 bpm 20 rpm 97.3 F 290.25 lbs 66 in 46.85 kg/m2 2.48 m2 92 % 08/12/2017 11:18:00 AM 136 mmHg 78 mmHg 71 bpm 20 rpm 97.3 F 284.375 lbs 66 in 45.8989 kg/m 2.45 m2 93 % 05/28/2017 10:15:00 AM 128 mmHg 68 mmHg 87 bpm 18 rpm 96.9 F 291.125 lbs 66 in 46.9883 kg/m 2.4798 m 94 % 03/17/2017 10:57:00 AM 138 mmHg 74 mmHg 88 bpm 18 rpm 96.3 F 296.5 lbs 66 in 47.86 kg/m2 2.5026 m 92 % 02/26/2017 11:11:00 AM 136 mmHg 72 mmHg 78 bpm 22 rpm 97.2 F 301.25 lbs 66 in 48.6225 kg/m 2.52 m2 96 % 02/12/2017 11:42:00 AM 136 mmHg 76 mmHg 88 bpm 24 rpm 97.4 F 303 lbs 66 in 48.90 kg/m2 2.53 m2 94 % 02/05/2017 9:37:00 AM 150 mmHg 78 mmHg 86 bpm 22 rpm 97.4 F 302.375 lbs 66 in 48.80 kg/m2 2.53 m2 95 % 02/04/2017 11:24:00 AM 140 mmHg 80 mmHg 82 bpm 24 rpm 98.4 F 309.125 lbs 66 in 49.89 kg/m2 2.56 m2 93 % 01/13/2017 2:48:00 PM 154 mmHg 92 mmHg 81 bpm 20 rpm 97.8 F 301.125 lbs 97 % 12/04/2016 8:22:00 AM 146 mmHg 78 mmHg 102 bpm 18 rpm 96.8 F 294.25 lbs 66 in 47.49 kg/m2 2.493 m 97 % 11/06/2014 11:02:00 AM 132 mmHg 68 mmHg 84 bpm 18 rpm 97.4 F 275 lbs 66 in 44.3857 kg/m 2.41 m2 10/03/2014 1:04:00 PM 162 mmHg 80 mmHg 72 bpm 18 rpm 96.9 F 274.375 lbs 66 in 44.28 kg/m2 2.4074 m 09/04/2014 1:08:00 PM 124 mmHg 60 mmHg 82 bpm 16 rpm 9.5 F 272 lbs 66 in 43.9015 kg/m 2.40 m2 06/12/2014 2:05:00 PM 124 mmHg 74 mmHg 78 bpm 16 rpm 98.6 F 272 lbs 63 in 48.18 kg/m2 2.34 m2 12/12/2013 1:41:00 PM 124 mmHg 82 mmHg 66 bpm 16 rpm 97.4 F 284 lbs 64 in 48.748 kg/m 2.4118 m 05/25/2013 3:55:00 PM 144 mmHg 92 mmHg 70 bpm 16 rpm 97.6 F 286 lbs 63 in 50.66 kg/m2 2.40 m2 12/20/2012 1:13:00 PM 144 mmHg 92 mmHg 84 bpm 16 rpm 98 F 282 lbs 63 in 49.9535 kg/m 2.3845 m 06/16/2012 12:54:00 PM 142 mmHg 80 mmHg 84 bpm 16 rpm 97.3 F 284 lbs 63 in 50.31 kg/m2 2.39 m2 01/20/2012 9:10:00 AM 125 mmHg 68 mmHg 75 bpm 98.3 F 287.25 lbs 64 in 49.3058 kg/m 2.4256 m 93 % 12/17/2011 1:07:00 PM 144 mmHg 94 mmHg 82 bpm 16 rpm 97.6 F 294 lbs 64 in 50.46 kg/m2 2.45 m2 11/25/2011 9:27:00 AM 128 mmHg 78 mmHg [...] Former smoker Denies illicit substance abuse retired sindhu jeronimo 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 Alcohol Use 2-3oz wine [...] 12:00 AM CHEST X-RAY 2VW FRONTAL&LATL Reviewed 07/31/2010 12:00 AM COMPREHEN METABOLIC PANEL Reviewed [...] Reviewed 03/24/2011 12:00 AM Kenalog 40 Mg Im-[facility]#[id number] (Terry) Reviewed 09/04/2014 12:00 AM X-RAY EXAM [...] Done Dental Inspection Reffered 11/07/2010 2:04 PM Laser Printing Operator Consult Done 01/30/2011 12:00 AM Cholest Cry [...] NEGATIVE YEAST NEGATIVE CULT SET UP? YES History Of Immunizations Name Date Admin Mfg Name Mfg Code Trade Name Lot# Route Inj Vis Given Vis Pub CVX Influenza 09/04/2008 Not Entered NE Not Entered Not Entered Not Entered 11/02/2018 11/02/2018 999 Influenza 08/06/2010 [employer] Arjun. NOV Fluvirin > 12 Years [id number] Intramuscular Right Deltoid 08/06/2010 06/12/2009 999 Influenza 08/06/2011 sanofi pasteur PMC FLUZONE [id number] Intramuscular Left Arm 08/06/2011 05/28/2011 141 History [...] 2009 4:51PM Hyperlipidemia Hypothyroidism, acquired Neuropathy Allergic rhinitis spinal stenosis Chronic Back Pain depression Diabetes [...] 2010 1:41PM Lumbar HNP w/o myelopathy; radiculitis Jul 05 2010 8:21AM Lumbar degenerative disc disease Jul 05 [...] disease Feb 2013 1:51PM Lumbar spinal stenosis Dec 12 2013 1:51PM Cervicalgia Dec 12 2013 1:51PM Degeneration of cervical intervertebral disc [...] diabetes mellitus with other diabetic neurological complication Dec 04 2016 8:35AM Type 2 diabetes mellitus with hyperglycemia Dec 04 2016 8:35AM Hypertensive heart disease with heart failure Dec 04 2016 8:35AM Lymphedema Dec 04 2016 8:35AM [...] stage renal disease Jul 28 2018 1:31PM correction (current) use of insulin Jul 28 2018 1:31PM Dependence on renal dialysis Jul 28 2018 1:31PM Chronic renal failure, stage 5 Aug 27 2018 10:42AM Type 2 diabetes mellitus with diabetic neuropathy, unspecified Oct 20 2018 11:10AM correction (current) use of insulin Oct 20 2018 [...] diabetic neuropathy, unspecified Mar 04 2019 1:20PM 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 Mar 04 2019 1:20PM Essential Hypertension Mar 04 2019 1:20PM Stage 5 chronic kidney disease not on chronic dialysis Mar 04 2019 1:20PM Fall Mar 31 2019 3:39PM Foot pain, right Mar 31 2019 3:39PM Payers Insurance Name Company Name Plan Name Plan Number Policy Number Policy Group Number Start Date Medicare [facility] Medicare RHC [id number] N/A BCBS Bcbs [facility] [id number] N/A Medicare RH Medicare RHC [id number] N/A Medicare Part A Medicare - Lab/Xray [id number] N/A Medicare Part B Medicare Of [place] [id number] Saturday, December 03, 2005 History of Encounters Visit Date Visit Type Provider 03/04/[address] Tony Sue MD 12/28/2018 Office visit Imani Aguilar APRN 12/03/[address] Tony Sue MD 11/26/[address] Tony Sue MD 11/18/2018 [facility] Madonna Bailey MD 10/20/[address] Tony Sue MD 10/03/2018 [facility] Madonna Bailey MD 08/27/[address] Tony Sue MD 07/28/[address] Tony Sue MD 07/06/2018 [facility] Madonna Bailey MD [facility]22[facility] Tony Sue MD 06/02/[address] Tony Sue MD 02/11/2018 [facility] Madonna Bailey MD 02/11/[address] Tony Sue MD 02/10/2018 Office visit Jalil Mendez MD 02/09/2018 [facility] Madonna Bailey MD 11/23/2017 [facility] Madonna Bailey MD 09/23/[address] Tony Sue MD 08/28/[address] Tony Sue MD 08/12/[address] Tony Sue MD 05/28/[address] Tony Sue MD 03/17/[address] Tony Sue MD 03/07/2017 [facility] Madonna Bailey MD 03/07/2017 Hospital James Quevedo DO 02/26/[address] Tony Sue MD 02/12/[address] Tony Sue MD 02/05/[address] Tony Sue MD 02/04/2017 Laboratory Madonna Bailey MD 02/04/[address] Tony Sue MD 01/13/[address] Tony Sue MD 12/19/2016 Hospital Madonna Bailey MD 12/18/2016 [facility] Javier Carreno MD 12/04/[address] Tony Sue MD 11/06/2014 Office visit Yamilet VALLES 10/03/2014 Office visit Yamilet VALLES 09/04/2014 Office visit Yamilet VALLES 06/12/2014 Office visit Yamilet VALLES 12/12/2013 Office visit Yamilet VALLES 05/25/2013 Office visit Jovon Ly MD 12/20/2012 Office visit Jovon Ly MD 06/16/2012 Office visit Jovon Ly MD 01/20/2012 [facility] Madonna Bailey MD 01/20/2012 Office visit Lemuel [...] Jovon Ly MD 04/30/2010 Office visit Jalil Trery DO 01/28/2010 Office visit Jalil Terry DO 12/07/2009 Office visit Jalil Terry DO 11/21/2009 Office visit Jovon Ly MD 11/06/2009 Office visit Jalil Terry DO 10/23/2009 Office visit Jalil Terry DO 09/12/2009 Office visit Jovon Ly MD 07/25/2009 Office visit Jalil Terry DO 07/17/2009 Office visit Jovon Ly MD 06/26/2009 Procedures Jovon Ly MD
--- OUTSIDE RECORDS SUMMARY | 2019-05-12 11:21 | XMS REPORT ---
Author Author Imani Aguilar [facility] Address [address] [place] [id number] Care Team Providers Care Size Changer Name Role Phone Imani Aguilar PCP Tony Sue PreferredProvider Allergies and Adverse [...] BY MOUTH VIA NEBULIZER FOUR TIMES DAILY amiodarone 200 mg oral tablet 10/18/2018 TAKE 2 TABLETS (400MG) BY MOUTH DAILY midodrine 10 mg oral tablet 10/18/2018 TAKE 1 TABLET BY MOUTH THREE TIMES A WEEK ON DIALYSIS DAYS albuterol sulfate 0.63 mg/3 mL inhalation solution for nebulization 10/18/2018 INHALE CONTENTS OF 1 VIAL BY MOUTH VIA NEBULIZER EVERY 4 HOURS NEEDED mirtazapine 15 mg oral tablet 10/18/2018 TAKE 1 TABLET BY MOUTH DAILY levothyroxine 125 mcg oral tablet 10/18/2018 TAKE 1 TABLET BY MOUTH DAILY Humalog KwikPen Insulin 100 unit/mL subcutaneous insulin pen 10/18/2018 INJECT 12 UNITS SUB CUTANEOUS THREE TIMES DAILY gabapentin 300 mg oral capsule 10/18/2018 TAKE 1 CAPSULE BY MOUTH THREE TIMES DAILY carvedilol 3.125 mg oral tablet 10/18/2018 TAKE 1 TABLET BY MOUTH TWICE DAILY furosemide 80 mg oral tablet 10/18/2018 TAKE 1 TABLET BY MOUTH DAILY ondansetron 4 mg oral tablet,disintegrating 10/18/2018 DISSOLVE 1 TABLET UNDER THE TONGUE EVERY 4 HOURS NEEDED clopidogrel 75 mg oral tablet 10/20/2018 TAKE 1 TABLET BY MOUTH DAILY simvastatin 20 mg oral tablet 10/20/2018 TAKE 1 TABLET BY MOUTH AT BEDTIME acyclovir 800 mg oral tablet 12/28/2018 01/04/2019 take 1 tablet (800 mg) by oral route 5 times per day for 7 days Name Start Date Expiration Date SIG Comments [...] 6 hours as needed for 30 days Cymbalta oral capsule,delayed release(DR/EC) 60 mg 11/06/2014 03/06/2015 take 1 capsule (60 mg) by oral route once daily for 30 days Lasix 40 mg oral tablet 03/17/2017 12/12/2017 take 2 tablets (80 mg) by oral route 2 times per day for 90 days Synthroid 125 mcg oral tablet 09/14/2017 03/13/2018 take 1 tablet (125 mcg) by oral route once daily for 30 days carvedilol 3.125 mg oral tablet 12/22/2017 03/28/2018 TAKE 1 TABLET BY MOUTH TWICE DAILY amiodarone 200 mg oral tablet 12/24/2017 03/30/2018 TAKE 2 TABLETS BY MOUTH DAILY Levemir U-100 Insulin 100 unit/mL subcutaneous solution 12/24/2017 08/09/2018 INJECT 26 UNITS SUBCUTANEOUS TWICE DAILY gabapentin 300 mg oral capsule 01/08/2018 02/25/2018 TAKE 1 CAPSULE BY MOUTH THREE TIMES DAILY Florastor 250 mg oral capsule 06/02/2018 08/31/2018 take 1 capsule by oral route 2 times a day for 30 days Discontinued Name Start Date Discontinued Date [...] per prescriber's instructions. Insulin dosing requires individualization. 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 Alcohol Use 2-3oz wine [...] Reviewed 03/24/2011 12:00 AM Kenalog 40 Mg Im-[facility]#[id number] (Terry) Reviewed 09/04/2014 12:00 AM X-RAY EXAM [...] Done Dental Inspection Reffered 11/07/2010 2:04 PM Tig Welder Consult Done 01/30/2011 12:00 AM Cholest Cry [...] YES History Of Immunizations Name Date Admin [facility] Name [facility] Code Trade Name Lot# Route Inj Vis Given Vis Pub CVX Influenza 09/04/2008 Not Entered NE Not Entered Not Entered Not Entered 11/02/2018 11/02/2018 999 Influenza 08/06/2010 [employer] Arjun. NOV Fluvirin > 12 Years [id number] Intramuscular Right Deltoid 08/06/2010 06/12/2009 999 Influenza 08/06/2011 sanofi pasteur PMC FLUZONE [id number] Intramuscular Left Arm 08/06/2011 05/28/2011 141 History [...] 25 2013 3:57PM Lumbar degenerative disc disease Dec 12 2013 1:51PM Lumbar spinal stenosis Dec 12 [...] stage renal disease Jul 28 2018 1:31PM group home (current) use of insulin Jul 28 2018 1:31PM Dependence on renal dialysis Jul 28 2018 1:31PM Chronic renal failure, stage 5 Aug 27 2018 10:42AM Type 2 diabetes mellitus with diabetic neuropathy, unspecified Oct 20 2018 11:10AM group home (current) use of insulin Oct 20 2018 [...] 1:34PM Herpes zoster Dec 28 2018 3:30PM Payers Insurance Name Company Name Plan Name Plan Number Policy Number Policy Group Number Start Date Medicare RHC Medicare RHC [id number] N/A [id number] N/A Medicare RHC Medicare RHC [id number] N/A Medicare Part A Medicare - Lab/Xray [id number] N/A Medicare Part B Medicare Of [place] [id number] Saturday, December 03, 2005 History of Encounters Visit Date Visit Type Provider 12/28/2018 Office visit Imani Aguilar NREMT 12/03/[address] Tony Sue MD 11/26/[address] Tony Sue MD 11/18/2018 [facility] Madonna Bailey MD 10/20/[address] Tony Sue MD 10/03/2018 [facility] Madonna Bailey MD 08/27/[address] Tony Sue MD 07/28/[address] Tony Sue MD 07/06/2018 [facility] Madonna Bailey MD 06/22/2018 [facility] 06/22/[address] Tony uSe MD 06/02/[address] Tony Sue MD 02/11/2018 [facility] Madonna Bailey MD 02/11/[address] Tony Sue MD 02/10/2018 Office visit Jalil Mendez MD 02/09/2018 [facility] Madonna Bailey MD 11/23/2017 [facility] Madonna Bailey MD 09/23/[address] Tony Sue MD 08/28/[address] Tony Sue MD 08/12/[address] Tony Sue MD 05/28/[address] Tony Sue MD 03/17/[address] Tony Sue MD 03/07/2017 [facility] Madonna Bailey MD 03/07/2017 [facility] 02/26/[address] Tony Sue MD 02/12/[address] Tony Sue MD 02/05/[address] Tony Sue MD 02/04/2017 Laboratory Madonna Bailey MD 02/04/[address] Tony Sue MD 01/13/[address] Tony Sue MD 12/19/2016 Hospital Madonna Bailey MD 12/18/2016 [facility] Javier Carreno MD 12/04/[address] [...]
--- OUTSIDE RECORDS SUMMARY | 2019-05-12 11:23 | XMS REPORT ---
Author Author Imani Aguilar [facility] Address [address] [place] [phone] Care Team Providers Care Parts Back Counter Man Name Role Phone Imani Aguilar PCP Tony [...] F 291.125 lbs 66 in 46.9883 kg/m 2.48 m2 94 % 03/17/2017 10:57:00 AM 138 mmHg 74 mmHg 88 bpm 18 rpm 96.3 F 296.5 lbs 66 in 47.8559 kg/m 2.5026 m 92 % 02/26/2017 11:11:00 AM 136 mmHg 72 mmHg 78 bpm 22 rpm 97.2 F 301.25 lbs 66 in 48.62 kg/m2 2.52 m2 96 % 02/12/2017 11:42:00 AM 136 mmHg 76 mmHg 88 bpm 24 rpm 97.4 F 303 lbs 66 in 48.905 kg/m 2.5298 m 94 % 02/05/2017 9:37:00 AM 150 mmHg 78 mmHg 86 bpm 22 rpm 97.4 F 302.375 lbs 66 in 48.80 kg/m2 2.53 m2 95 % 02/04/2017 11:24:00 AM 140 mmHg 80 mmHg 82 bpm 24 rpm 98.4 F 309.125 lbs 66 in 49.8936 kg/m 2.5553 m 93 % 01/13/2017 2:48:00 PM 154 mmHg [...] rpm 98 F 290.125 lbs 66 in 46.83 kg/m2 2.48 m2 93 % 09/19/2010 8:51:00 AM 152 mmHg [...] Reviewed 03/24/2011 12:00 AM Kenalog 40 Mg Im-[facility]#[id number] (Terry) Reviewed 09/04/2014 12:00 AM X-RAY EXAM [...] Done Dental Inspection Reffered 11/07/2010 2:04 PM Slide Developer Consult Done 01/30/2011 12:00 AM Cholest Cry [...] YES History Of Immunizations Name Date Admin [facility] Name [facility] Code Trade Name Lot# Route Inj Vis Given Vis Pub CVX Influenza 09/04/2008 Not Entered NE Not Entered Not Entered Not Entered 11/02/2018 11/02/2018 999 Influenza 08/06/2010 [employer] Arjun. 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 [id number] N/A Medicare RHC Medicare RHC [id number] N/A Medicare Part A Medicare - Lab/Xray [id number] N/A Medicare Part B Medicare Of [place] [id number] Saturday, December 03, 2005 History of Encounters Visit Date Visit Type Provider 12/28/2018 Office visit Imani Aguilar WATCH PARTS INSPECTOR 12/03/[address] Tony Sue MD 11/26/[address] Tony Sue MD 11/18/2018 [facility] Madonna Bailey MD 10/20/[address] Tony Sue MD 10/03/2018 [facility] Madonna Bailey MD 08/27/[address] Tony Sue MD 07/28/[address] Tony Sue MD 07/06/2018 [facility] Madonna Bailey MD 06/22/2018 [facility] 06/22/[address] Tony Sue MD 06/02/[address] Tony Sue MD 02/11/2018 [facility] Madonna Bailey MD 02/11/[address] Tony Sue MD 02/10/2018 Office visit Jalil Mendez MD 02/09/2018 [facility] Madonna Bailey MD 11/23/2017 [facility] Madonna Bailey MD 09/23/[address] Tony Sue MD 08/28/[address] Tony Sue MD 08/12/[address] Tony Sue MD 05/28/[address] Tony Sue MD 03/17/[address] Tony Sue MD 03/07/2017 [facility] Madonna Bailey MD 03/07/2017 [facility] 02/26/[address] Tony Sue MD 02/12/[address] Tony Sue MD 02/05/[address] Tony Sue MD 02/04/2017 Laboratory Madonna Bailey MD 02/04/[address] Tony Sue MD 01/13/[address] Tony Sue MD 12/19/2016 Hospital Madonna Bailey MD 12/18/2016 Hospital Javier Carreno MD 12/04/2016 Office visit [...]
--- OUTSIDE RECORDS SUMMARY | 2019-05-12 11:25 | XMS REPORT ---
Author Author Tony Sue Organization [facility] Address [address] [place] [phone] Care Team Providers Care Senior Director Name Role Phone Tony Sue PCP Tony [...] stenosis Active Hypertension, Benign Essential Active Actinic Keratosis Active Major Depression (Single Episode) Active 10/23/2009 Diabetes Mellitus, Type II Active 06/01/2015 Hypertensive Heart Disease With Heart Failure Active 12/04/2016 Diabetes mellitus with neurological manifestations, uncontrolled Active 12/04/2016 Vital Signs Date Time BP-Sys(mm[Hg] BP-Maegan(mm[Hg]) HR(bpm) RR(rpm) Temp WT HT HC BMI BSA BMI Percentile O2 Sat(%) 12/03/2018 1:29:00 PM 120 mmHg 72 mmHg [...] Reviewed 03/24/2011 12:00 AM Kenalog 40 Mg Im-[facility]#[id number] (Terry) Reviewed 09/04/2014 12:00 AM X-RAY EXAM [...] Done Dental Inspection Reffered 11/07/2010 2:04 PM Commissary Superintendent Consult Done 01/30/2011 12:00 AM Cholest Cry [...] Not Entered 11/02/2018 11/02/2018 999 Influenza 08/06/2010 [employer] Arjun. NOV Fluvirin > 12 Years [id number] Intramuscular Right Deltoid 08/06/2010 06/12/2009 999 Influenza 08/06/2011 sanofi pasteur [facility] FLUZONE [id number] Intramuscular Left Arm 08/06/2011 05/28/2011 141 History [...] degenerative disk disease Hypertension, Benign Essential Actinic Keratosis Major Depression (Single Episode) 10/23/2009 SI joint [...] 25 2013 3:57PM Lumbar degenerative disc disease Fe2013 1:51PM Lumbar spinal stenosis Dec 12 2013 [...] stage renal disease Jul 28 2018 1:31PM senior care (current) use of insulin Jul 28 2018 1:31PM Dependence on renal dialysis Jul 28 2018 1:31PM Chronic renal failure, stage 5 Aug 27 2018 10:42AM Type 2 diabetes mellitus with diabetic neuropathy, unspecified Oct 20 2018 11:10AM senior care (current) use of insulin Oct 20 2018 11:10AM Essential Hypertension Oct 20 2018 11:10AM Stage 5 chronic kidney disease not on chronic dialysis Oct 20 2018 11:10AM Acute cystitis without hematuria Nov 26 2018 8:25AM Skin ulcer of right foot, limited to breakdown of skin Nov 26 2018 8:25AM Skin ulcer of right foot, limited to breakdown of skin Dec 03 2018 1:34PM Payers Insurance Name Company Name Plan Name Plan Number Policy Number Policy Group Number Start Date Medicare RHC Medicare [facility] [id number] N/[id number] N/A Medicare Part B Medicare Of [place] [id number] Saturday, 2005 Medicare Part A Medicare - Lab/Xray [id number] N/A History of Encounters Visit Date Visit Type Provider 12/03/[address] Tony Sue MD 11/26/[address] Tony Sue MD 11/18/2018 [facility] Madonna Bailey MD 10/20/[address] Tony Sue MD 10/03/2018 [facility] Madonna Bailey MD 08/27/[address] Tony Sue MD 07/28/[address] Tony Sue MD 07/06/2018 [facility] Madonna Bailey MD 06/22/2018 [facility] 06/22/[address] Tony Sue MD 06/02/[address] Tony Sue MD 02/11/2018 [facility] Madonna Bailey MD 02/11/[address] Tony Sue MD 02/10/2018 Office visit Jalil Mendez MD 02/09/2018 [facility] Madonna Bailey MD 11/23/2017 [facility] Madonna Bailey MD 09/23/[address] Tony Sue MD 08/28/[address] Tony Sue MD 08/12/[address] Tony Sue MD 05/28/[address] Tony Sue MD 03/17/[address] Tony Sue MD 03/07/2017 [facility] Madonna Bailey MD 03/07/2017 [facility] 02/26/[address] Tony Sue MD 02/12/[address] Tony Sue MD 02/05/[address] Tony Sue MD 02/04/2017 Laboratory Madonna Bailey MD 02/04/[address] Tony Sue MD 01/13/[address] Tony Sue MD 12/19/2016 [facility] Madonna Bailey MD 12/18/2016 [facility] Javier Carreno MD 12/04/[address] Tony Sue MD 11/06/2014 Office visit Yamilet VALLES 10/03/2014 Office visit Yamilet Rasheed Khang VALLES 09/04/2014 Office visit Yamilet M. Khang VALLES 06/12/2014 Office visit Yamilet VALLES 12/12/2013 [...]
--- OUTSIDE RECORDS SUMMARY | 2019-05-12 11:27 | XMS REPORT ---
Author Author Tony Sue Organization [facility] Address [address] [place] [id number] Care Team Providers Care Machine Shop Worker Name Role Phone Tony Sue PCP Tony [...] Reviewed 03/24/2011 12:00 AM Kenalog 40 Mg Im-[facility]#[id number] (Terry) Reviewed 09/04/2014 12:00 AM X-RAY EXAM [...] Done Dental Inspection Reffered 11/07/2010 2:04 PM Inventory Associate And Driver Consult Done 01/30/2011 12:00 AM Cholest Cry [...] Not Entered 11/02/2018 11/02/2018 999 Influenza 08/06/2010 [employer] Arjun. NOV Fluvirin > 12 Years [id number] Intramuscular Right Deltoid 08/06/2010 06/12/2009 999 Influenza 08/06/2011 sanofi pasteur [facility] FLUZONE [id number] Intramuscular Left Arm 08/06/2011 05/28/2011 141 History [...] stage renal disease Jul 28 2018 1:31PM snf (current) use of insulin Jul 28 2018 1:31PM Dependence on renal dialysis Jul 28 2018 1:31PM Chronic renal failure, stage 5 Aug 27 2018 10:42AM Type 2 diabetes mellitus with diabetic neuropathy, unspecified Oct 20 2018 11:10AM snf (current) use of insulin Oct 20 2018 11:10AM Essential Hypertension Oct 20 2018 11:10AM Stage 5 chronic kidney disease not on chronic dialysis Oct 20 2018 11:10AM Acute cystitis without hematuria Nov 26 2018 8:25AM Skin ulcer of right foot, limited to breakdown of skin Nov 26 2018 8:25AM Payers Insurance Name Company Name Plan Name Plan Number Policy Number Policy Group Number Start Date Medicare [facility] Medicare [facility] [id number] N/A [id number] N/A Medicare Part B Medicare Of [place] [id number] Saturday, 2005 Medicare Part A Medicare - Lab/Xray [id number] N/A History of Encounters Visit Date Visit Type Provider 12/03/[address] Tony Sue MD 11/26/[address] Tony Sue MD 11/18/2018 [facility] Madonna Bailey MD 10/20/[address] Tony Sue MD 10/03/2018 [facility] Madonna Bailey MD 08/27/[address] Tony Sue MD 07/28/[address] Tony Sue MD 07/06/2018 [facility] Madonna Bailey MD 06/22/2018 [facility] 06/22/[address] Tony Sue MD 06/02/[address] Tony Sue MD 02/11/2018 [facility] Madonna Bailey MD 02/11/[address] Tony Sue MD 02/10/2018 Office visit Jalil Mendez MD 02/09/2018 [facility] Madonna Bailey MD 11/23/2017 [facility] Madonna Bailey MD 09/23/[address] oTny Sue MD 08/28/[address] Tony Sue MD 08/12/[address] Tony Sue MD 05/28/[address] Tony Sue MD 03/17/[address] Tony Sue MD 03/07/2017 [facility] Madonna Bailey MD 03/07/2017 [facility] 02/26/[address] Tony Sue MD 02/12/[address] Tony Sue MD 02/05/[address] Tony Sue MD 02/04/2017 Laboratory Madonna Bailey MD 02/04/[address] Tony Sue MD 01/13/[address] Tony Sue MD 12/19/2016 [facility] Madonna Bailey MD 12/18/2016 [facility] Javier Carreno MD 12/04/[address] Tony Sue MD 11/06/2014 Office visit Yamilet VALELS 10/03/2014 Office visit Yamilet VALLES 09/04/2014 Office [...] Jovon Ly MD 08/20/2010 Office visit Jovon yL MD 08/07/2010 Office visit Jalil Terry DO [...]
--- OUTSIDE RECORDS SUMMARY | 2019-05-12 11:29 | XMS REPORT ---
Author Author Tony Sue Organization [facility] Address [address] [place] [phone] Care Team Providers Care Cathode Ray Tube Assembler Name Role Phone Tony Sue PCP Tony [...] Reviewed 03/24/2011 12:00 AM Kenalog 40 Mg Im-[facility]#[id number] (Terry) Reviewed 09/04/2014 12:00 AM X-RAY EXAM [...] Done Dental Inspection Reffered 11/07/2010 2:04 PM Cardroom Hand Consult Done 01/30/2011 12:00 AM Cholest Cry [...] Not Entered 11/02/2018 11/02/2018 999 Influenza 08/06/2010 [employer] Arjun. NOV Fluvirin > 12 Years [id number] Intramuscular Right Deltoid 08/06/2010 06/12/2009 999 Influenza 08/06/2011 sanofi pasteur [facility] FLUZONE [id number] Intramuscular Left Arm 08/06/2011 05/28/2011 141 History [...] stage renal disease Jul 28 2018 1:31PM nursing home (current) use of insulin Jul 28 2018 1:31PM Dependence on renal dialysis Jul 28 2018 1:31PM Chronic renal failure, stage 5 Aug 27 2018 10:42AM Type 2 diabetes mellitus with diabetic neuropathy, unspecified Oct 20 2018 11:10AM nursing home (current) use of insulin Oct 20 2018 11:10AM Essential Hypertension Oct 20 2018 11:10AM Stage 5 chronic kidney disease not on chronic dialysis Oct 20 2018 11:10AM Acute cystitis without hematuria Nov 26 2018 8:25AM Skin ulcer of left foot, limited to breakdown of skin Nov 26 2018 8:25AM Payers Insurance Name Company Name Plan Name Plan Number Policy Number Policy Group Number Start Date Medicare [facility] Medicare [facility] [id number] N/A [id number] N/A Medicare Part B Medicare Of [place] [id number] Saturday, 2005 Medicare Part A Medicare - Lab/Xray [id number] N/A History of Encounters Visit Date Visit Type Provider 12/03/[address] Tony Sue MD 11/26/[address] Tony Sue MD 11/18/2018 [facility] Madonna Bailey MD 10/20/[address] Tony Sue MD 10/03/2018 [facility] Madonna Bailey MD 08/27/[address] Tony Sue MD 07/28/[address] Tony Sue MD 07/06/2018 [facility] Madonna Bailey MD 06/22/2018 [facility] 06/22/[address] Tony Sue MD 06/02/[address] Tony Sue MD 02/11/2018 [facility] Madonna Bailey MD 02/11/[address] Tony Sue MD 02/10/2018 Office visit Jalil Mendez MD 02/09/2018 [facility] Madonna Bailey MD 11/23/2017 [facility] Madonna Bailey MD 09/23/[address] Tony Sue MD 08/28/[address] Tony Sue MD 08/12/[address] Tony Sue MD 05/28/[address] Tony Sue MD 03/17/[address] Tony Sue MD 03/07/2017 [facility] Madonna Bailey MD 03/07/2017 [facility] 02/26/[address] Tony Sue MD 02/12/[address] Tony Sue MD 02/05/[address] Tony Sue MD 02/04/2017 Laboratory Madonna Bailey MD 02/04/[address] Tony Sue MD 01/13/[address] Tony Sue MD 12/19/2016 [facility] Madonna Bailey MD 12/18/2016 [facility] Javier Carreno MD 12/04/2016 Office visit [...]
[2019-05-12] MEDS ORDERED: NS IV 1000 ML 1,000 ML IV SCH (11:30)
--- OUTSIDE RECORDS SUMMARY | 2019-05-12 11:31 | XMS REPORT ---
Author Author Tony Sue Organization [facility] Address [address] [place] [phone] Care Team Providers Care Irish Moss Gatherer Name Role Phone Tony Sue PCP Tony [...] 1 TABLET BY MOUTH TWICE DAILY ondansetron HCl 4 mg oral tablet 07/29/2018 TAKE 1 TABLET BY MOUTH EVERY 4 HOURS NEEDED ipratropium-albuterol 0.5 mg-3 mg(2.5 mg base)/3 mL [...] TAKE 1 TABLET BY MOUTH AT BEDTIME Problem List Description Status Onset Allergic rhinitis [...] HC BMI BSA BMI Percentile O2 Sat(%) 10/20/2018 11:07:00 AM 118 mmHg 72 mmHg [...] F 301.25 lbs 66 in 48.62 kg/m2 2.5225 m 96 % 02/12/2017 11:42:00 AM [...] Reviewed 03/24/2011 12:00 AM Kenalog 40 Mg Im-[facility]#[id number] (Terry) Reviewed 09/04/2014 12:00 AM X-RAY EXAM [...] Done Dental Inspection Reffered 11/07/2010 2:04 PM Knife Grinder Consult Done 01/30/2011 12:00 AM Cholest Cry [...] NE Not Entered Not Entered Not Entered 11/02/2017 11/02/2017 999 Influenza 08/06/2010 [employer]. 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 Tony Sue MD 08/27/[address] Tony Sue MD 07/28/[address] Tony Sue MD 07/06/2018 [facility] Madonna Bailey MD 06/22/2018 [facility] James Quevedo DO 06/22/[address] Tony Sue MD 06/02/[address] Tony Sue MD 02/11/2018 [facility] Madonna Bailey MD 02/11/[address] Tony Sue MD 02/10/2018 Office visit Jalil Mendez MD 02/09/2018 Hospital Madonna Bailey MD 11/23/2017 Hospital Madonna Bailey MD 09/23/[address] Tony Sue MD 08/28/[address] Tony Sue MD 08/12/[address] Tony Sue MD 05/28/[address] Tony Sue MD 03/17/[address] Tony Sue MD 03/07/2017 Hospital Madonna Bailey MD 03/07/2017 [facility] Sae 02/26/[address] Tony Sue MD 02/12/[address] Tony Sue MD 02/05/[address] Tony Sue MD 02/04/2017 Laboratory Madonna Bailey MD 02/04/[address] Tony Sue MD 01/13/[address] Tony Sue MD 12/19/2016 Hospital Madonna Bailey MD 12/18/2016 [facility] Javier Carreno MD 12/04/[address] Tony Sue MD 11/06/2014 Office visit Yamilet VALLES 10/03/2014 Office visit Yamilet VALLES 09/04/2014 Office visit Yamilet VALLES 06/12/2014 Office visit Yamilet VALLES 12/12/2013 Office visit Yamilet VALLES 05/25/2013 Office visit Jovon yL MD 12/20/2012 Office visit Jovon Ly MD [...]
--- OUTSIDE RECORDS SUMMARY | 2019-05-12 11:33 | XMS REPORT ---
Author Author Tony Sue Organization [facility] Address [address] [place] [phone] Care Team Providers Care Application Packaging Consultant Name Role Phone Tony Sue PCP Tony [...] ONE AND ONE-HALF TABLET BY MOUTH DAILY simvastatin 40 mg oral tablet 07/01/2018 TAKE 1 TABLET BY MOUTH AT BEDTIME sertraline 100 mg oral tablet 07/01/2018 TAKE 1 TABLET BY MOUTH DAILY Klor-Con Sprinkle 10 mEq oral capsule, extended release 07/01/2018 TAKE 2 CAPSULES BY MOUTH DAILY metformin 500 mg oral tablet 07/01/2018 TAKE 1 TABLET BY MOUTH TWICE DAILY levothyroxine 125 mcg oral tablet 07/28/2018 TAKE 1 TABLET BY MOUTH BEFORE BREAKFAST gabapentin 300 mg oral capsule 07/28/2018 TAKE 1 CAPSULE BY MOUTH THREE TIMES DAILY carvedilol 3.125 mg oral tablet 07/28/2018 TAKE 1 TABLET BY MOUTH TWICE DAILY simvastatin 80 mg oral tablet 07/28/2018 TAKE 1 TABLET BY MOUTH AT BEDTIME Humalog KwikPen Insulin 100 unit/mL subcutaneous insulin pen 07/29/2018 PER SLIDING SCALE ondansetron HCl 4 mg oral tablet 07/29/2018 TAKE 1 TABLET BY MOUTH EVERY 4 HOURS NEEDED amiodarone 200 mg oral tablet 07/29/2018 TAKE 2 TABLETS BY MOUTH EVERY MORNING midodrine 10 mg oral tablet 07/29/2018 TAKE 1 TABLET BY MOUTH NEEDED DIRECTED mirtazapine 15 mg oral tablet 07/30/2018 TAKE 1 TABLET BY MOUTH AT BEDTIME ipratropium-albuterol 0.5 mg-3 mg(2.5 mg base)/3 mL inhalation solution for nebulization 08/23/2018 INHALE CONTENTS OF 1 VIAL BY MOUTH VIA NEBULIZER FOUR TIMES DAILY furosemide 80 mg oral tablet 08/25/2018 TAKE 1 TABLET BY MOUTH IN THE MORNING NEEDED ON NON DIALYSIS DAYS Name Start Date Expiration Date [...] 02/10/2018 TAKE 1 TABLET BY MOUTH DAILY Problem List Description Status Onset Allergic rhinitis [...] HC BMI BSA BMI Percentile O2 Sat(%) 08/27/2018 10:39:00 AM 120 mmHg 67 mmHg [...] F 232 lbs 64 in 39.82 kg/m2 2.1799 m 96 % 06/02/2018 3:47:00 PM 117 mmHg 65 mmHg 54 bpm 20 rpm 97.2 F 228 lbs 64 in 39.1357 kg/m 2.16 m2 92 % 02/11/2018 2:54:00 PM 110 mmHg 78 mmHg 56 bpm 20 rpm 97.9 F 268 lbs 64 in 46.00 kg/m2 2.3429 m 99 % 02/10/2018 1:46:00 PM 114 mmHg 66 mmHg 57 bpm 16 rpm 97.9 F 272 lbs 64 in 46.6882 kg/m 2.36 m2 96 % 09/23/2017 11:20:00 AM 126 mmHg 70 mmHg 74 bpm 20 rpm 97.4 F 288.25 lbs 66 in 46.52 kg/m2 2.4675 m 93 % 08/28/2017 9:55:00 AM 124 mmHg 58 mmHg 77 bpm 20 rpm 97.3 F 290.25 lbs 66 in 46.8471 kg/m 2.48 m2 92 % 08/12/2017 11:18:00 AM 136 mmHg 78 mmHg 71 bpm 20 rpm 97.3 F 284.375 lbs 66 in 45.90 kg/m2 2.4509 m 93 % 05/28/2017 10:15:00 AM 128 mmHg [...] Reviewed 03/24/2011 12:00 AM Kenalog 40 Mg Im-[facility]#[id number] (Harrison) Reviewed 09/04/2014 12:00 AM X-RAY EXAM OF [...] Done Dental Inspection Reffered 11/07/2010 2:04 PM Customer Engineer Consult Done 01/30/2011 12:00 AM Cholest Cry [...] Not Entered 11/02/2017 11/02/2017 999 Influenza 08/06/2010 [employer]. NOV Fluvirin > 12 Years [id number] Intramuscular Right Deltoid 08/06/2010 06/12/2009 999 Influenza 08/06/2011 sanofi pasteur [facility]C FLUZONE [id number] Intramuscular Left Arm 08/06/2011 05/28/2011 141 History [...] 25 2011 9:28AM Lumbar degenerative disc disease Feb 2011 1:09PM Lumbar spinal stenosis Feb 2011 1:09PM Cervicalgia Feb 2011 1:09PM Carpal Tunnel Syndrome Feb 15 2011 1:09PM Preoperative Examination Jan 20 2012 9:12AM Lumbar degenerative disc disease Jun 16 2012 1:03PM Lumbar spinal stenosis Jun 16 2012 1:03PM Cervicalgia Jun 16 2012 1:03PM Carpal Tunnel Syndrome Jun 16 2012 1:03PM Lumbar degenerative disc disease Feb 18 2012 1:16PM Lumbar spinal stenosis Feb 18 2012 1:16PM Cervicalgia b 18 2012 1:16PM Carpal Tunnel Syndrome Feb 18 2012 1:16PM Lumbar degenerative disc disease May 25 2013 3:57PM Lumbar spinal stenosis May 25 2013 3:57PM Cervicalgia May 25 2013 3:57PM Carpal Tunnel Syndrome May 25 2013 3:57PM Lumbar degenerative disc disease Feb 10 2013 1:51PM Lumbar spinal stenosis Feb 10 2013 1:51PM Cervicalgia Feb 10 2013 1:51PM Degeneration of cervical intervertebral disc Feb 10 2013 1:51PM Lumbar degenerative disc disease Jun [...] stage renal disease Jul 28 2018 1:31PM 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 Tony Sue MD 07/28/[address] Tony Sue MD 07/06/2018 Hospital Madonna Bailey MD 06/22/2018 Hospital James Quevedo MD 06/22/[address] Tony Sue MD 06/02/[address] Tony Sue MD 02/11/2018 Hospital Madonna Bailey MD 02/11/2018 Office visit [...] MD 03/07/2017 Hospital Madonna Bailey MD 03/07/2017 Hospital James Quevedo MD 02/26/[address] Tony Sue MD 02/12/[address] Tony uSe MD 02/05/[address] Tony Sue [...] 06/16/2012 Office visit Jovon Ly MD 01/20/2012 [facility] Madonna Bailey MD 01/20/2012 Office visit Lemuel Rivera MD 12/17/2011 Office visit Jovon Ly MD 11/25/2011 Office visit Lemuel Rivera MD 08/06/2011 Office visit Lemuel Rivera MD 06/16/2011 Office visit Jovon Ly MD 06/12/2011 [facility] Madonna Bailey MD 06/12/2011 Office visit Lemuel Rivera MD 05/08/2011 Office visit Lemule Rivera MD 03/24/2011 Office visit Jalil Terry [...]
--- OUTSIDE RECORDS SUMMARY | 2019-05-12 11:35 | XMS REPORT ---
Author Author Tony Sue Organization [facility] Address [address] [place] [phone] Care Team Providers Care Child Care Nurse Name Role Phone Tony Sue PCP Tony [...] 03/05/2018 INJECT 10 UNITS SUBCUTANEOUS TWICE DAILY Florastor 250 mg oral capsule 06/02/2018 08/31/2018 take 1 capsule by oral route 2 times a day for 30 days potassium chloride 20 mEq oral tablet,ER particles/crystals [...] 1 CAPSULE BY MOUTH THREE TIMES DAILY Discontinued Name Start Date Discontinued Date SIG [...] F 294.25 lbs 66 in 47.49 kg/m2 2.49 m2 97 % 11/06/2014 11:02:00 AM 132 mmHg 68 mmHg 84 bpm 18 rpm 97.4 F 275 lbs 66 in 44.3857 kg/m 2.4101 m 10/03/2014 1:04:00 PM 162 mmHg 80 mmHg 72 bpm 18 rpm 96.9 F 274.375 lbs 66 in 44.28 kg/m2 2.41 m2 09/04/2014 1:08:00 PM 124 mmHg 60 mmHg 82 bpm 16 rpm 9.5 F 272 lbs 66 in 43.9015 kg/m 2.3969 m 06/12/2014 2:05:00 PM 124 mmHg 74 mmHg [...] Former smoker Denies illicit substance abuse 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 NOV Fluvirin > 12 Years [id number] Intramuscular Right Deltoid 08/06/2010 06/12/2009 999 Influenza 08/06/2011 sanofi pasteur [facility] FLUZONE [id number] Intramuscular Left Arm 08/06/2011 05/28/2011 141 History [...] Feb 2011 1:09PM Carpal Tunnel Syndrome Feb 2011 1:09PM Preoperative Examination Jan 20 2012 9:12AM Lumbar degenerative disc disease Jun 16 2012 1:03PM Lumbar spinal stenosis Jun 16 2012 1:03PM Cervicalgia Jun 16 2012 1:03PM Carpal Tunnel Syndrome Jun 16 2012 1:03PM Lumbar degenerative disc disease Feb 2012 1:16PM Lumbar spinal stenosis Feb 18 2012 1:16PM Cervicalgia Feb 18 2012 1:16PM Carpal Tunnel Syndrome Feb [...] stage renal disease Jul 28 2018 1:31PM detention (current) use of insulin Jul 28 2018 1:31PM Dependence on renal dialysis Jul 28 2018 1:31PM Chronic renal failure, stage 5 Aug 27 2018 10:42AM Payers Insurance Name Company Name Plan Name Plan Number Policy Number Policy Group Number Start Date Medicare RHC Medicare RHC [id number] N/A BCBS Bcbs [facility] [id number] N/A Medicare Part B Medicare Of [place] [id number] Saturday, 2005 Medicare Part A Medicare - Lab/Xray [id number] N/A History of Encounters Visit Date Visit [...] visit Jalil Terry DO 10/23/2009 Office visit Jlail Terry DO 09/12/2009 Office visit Jovon Ly MD 07/25/2009 Office visit Jalil Terry DO 07/17/2009 Office visit Jovon Ly MD 06/26/2009 Procedures Jovon Ly MD
--- OUTSIDE RECORDS SUMMARY | 2019-05-12 11:37 | XMS REPORT ---
Author Author Tony Sue Organization [facility] Address [address] [place] [id number] Care Team Providers Care Wool Hat Finisher Name Role Phone Tony Sue PCP Tony Sue PreferredProvider Allergies and Adverse Reactions Name Reaction Notes SULFA (SULFONAMIDES) IV DYE, IODINE CONTAINING Wellbutrin Plan of Treatment Not available. Medications Active Name Start Date Estimated Completion Date SIG Comments Aspir-81 81 mg oral tablet,delayed release (DR/EC) take 1 tablet (81 mg) by oral route once daily Levemir U-100 Insulin 100 unit/mL subcutaneous solution 12/24/2017 08/09/2018 INJECT 26 UNITS SUBCUTANEOUS TWICE DAILY iron 325 mg (65 mg iron) oral tablet 02/08/2018 take 1 tablet (325 mg) by oral route once daily Zocor 40 mg oral tablet take 1 tablet (40 mg) by oral route once daily in the evening levothyroxine 125 mcg oral tablet 03/04/2018 TAKE 1 TABLET BY MOUTH IN THE MORNING lactulose 10 gram/15 mL oral solution 03/05/2018 [...] 07/01/2018 TAKE 3 TABLETS BY MOUTH DAILY carvedilol 3.125 mg oral tablet 07/01/2018 TAKE 1 TABLET BY MOUTH TWICE DAILY gabapentin 300 mg oral capsule 07/01/2018 TAKE 1 CAPSULE BY MOUTH THREE TIMES DAILY mirtazapine 30 mg oral tablet 07/01/2018 [...] TWICE DAILY amiodarone 200 mg oral tablet 07/01/2018 12/28/2018 TAKE 1 TABLET BY MOUTH DAILY for 30 days Name Start Date Expiration Date SIG [...] oral route once daily for 30 days ipratropium-albuterol 0.5 mg-3 mg(2.5 mg base)/3 mL inhalation solution for nebulization 12/21/2017 03/21/2018 INHALE CONTENTS OF 1 VIAL BY MOUTH VIA NEBULIZER FOUR TIMES DAILY carvedilol 3.125 mg oral tablet 12/22/2017 03/28/2018 TAKE 1 TABLET BY MOUTH TWICE DAILY amiodarone 200 mg oral tablet 12/24/2017 03/30/2018 TAKE 2 TABLETS BY MOUTH DAILY gabapentin 300 mg oral capsule 01/08/2018 [...] degenerative disk disease Active depression Active Diabetes mellitus, type II Active Hyperlipidemia Active Hypothyroidism, acquired Active Neuropathy Active spinal stenosis Active Hypertension, Benign Essential Active Actinic keratosis Active Major Depression (Single Episode) Active 10/23/2009 Diabetes mellitus, type II Active 06/01/2015 Hypertensive Heart Disease With Heart Failure Active 12/04/2016 Diabetes mellitus with neurological manifestations, uncontrolled Active 12/04/2016 Vital Signs Date Time BP-Sys(mm[Hg] BP-Maegna(mm[Hg]) HR(bpm) RR(rpm) Temp WT HT HC BMI BSA BMI Percentile O2 Sat(%) 07/28/2018 1:25:00 PM 99 mmHg 40 mmHg [...] F 228 lbs 64 in 39.14 kg/m2 2.161 m 92 % 02/11/2018 2:54:00 PM 110 mmHg 78 mmHg 56 bpm 20 rpm 97.9 F 268 lbs 64 in 46.0016 kg/m 2.34 m2 99 % 02/10/2018 1:46:00 PM 114 mmHg 66 mmHg 57 bpm 16 rpm 97.9 F 272 lbs 64 in 46.69 kg/m2 2.3603 m 96 % 09/23/2017 11:20:00 AM 126 mmHg 70 mmHg 74 bpm 20 rpm 97.4 F 288.25 lbs 66 in 46.5243 kg/m 2.47 m2 93 % 08/28/2017 9:55:00 AM 124 mmHg 58 mmHg 77 bpm 20 rpm 97.3 F 290.25 lbs 66 in 46.85 kg/m2 2.476 m 92 % 08/12/2017 11:18:00 AM 136 mmHg 78 mmHg 71 bpm 20 rpm 97.3 F 284.375 lbs 66 in 45.8989 kg/m 2.45 m2 93 % 05/28/2017 10:15:00 AM 128 mmHg 68 mmHg 87 bpm 18 rpm 96.9 F 291.125 lbs 66 in 46.99 kg/m2 2.48 m2 94 % 03/17/2017 10:57:00 AM [...] Reviewed 03/24/2011 12:00 AM Kenalog 40 Mg Im-[facility]#[id number] (Terry) Reviewed 09/04/2014 12:00 AM X-RAY EXAM [...] Dental Inspection Reffered 11/07/2010 2:04 PM Account Technician Consult Done 01/30/2011 12:00 AM Cholest Cry [...] 4.58 HGB 12.80 g/dLHCT 40.60 %MCV 89.0 fLH 27.90 pgMCHC 31.50 g/dLRDW SD 48 RDW [...] Not Entered 11/02/2018 11/02/2018 999 Influenza 08/06/2010 [employer] Arjun. NOV Fluvirin > 12 Years [id number] Intramuscular Right Deltoid 08/06/2010 06/12/2009 999 Influenza 08/06/2011 sanofi pasteur PMC FLUZONE [id number] Intramuscular Left Arm 08/06/2011 05/28/2011 141 History [...] spinal stenosis Chronic Back Pain depression Diabetes mellitus, type II degenerative disk disease Hypertension, Benign Essential [...] Benign Essential Nov 07 2010 1:51PM Diabetes mellitus, type II 06/01/2015 Lumbar HNP w/o myelopathy; radiculitis [...] Dec 20 2012 1:16PM Lumbar spinal stenosis Feb 2012 1:16PM Cervicalgia Dec 20 2012 1:16PM Carpal Tunnel Syndrome b 2012 1:16PM Lumbar degenerative disc disease May 25 2013 3:57PM Lumbar spinal stenosis May 25 2013 3:57PM Cervicalgia May 25 2013 3:57PM Carpal Tunnel Syndrome May 25 2013 3:57PM Lumbar degenerative disc disease Feb 2013 1:51PM Lumbar spinal stenosis Feb 2013 1:51PM Cervicalgia b 10 2013 1:51PM Degeneration of cervical intervertebral disc b 2013 1:51PM Lumbar degenerative disc disease Jun [...] diabetes mellitus with other diabetic neurological complication Feb 2016 8:35AM Type 2 diabetes mellitus with hyperglycemia Feb 2 2016 8:35AM Hypertensive heart disease with heart [...] stage renal disease Jul 28 2018 1:31PM intermediate (current) use of insulin Jul 28 2018 1:31PM Dependence on renal dialysis Jul 28 2018 1:31PM Payers Insurance Name Company Name Plan Name Plan Number Policy Number Policy Group Number Start Date Medicare [facility] Medicare [facility] [id number] N/A [facility] [id number] N/A Medicare Part B Medicare Of [place] [id number] Saturday, 2005 Medicare Part A Medicare - Lab/Xray [id number] N/A History of Encounters Visit Date Visit Type Provider 07/28/[address] Tony Sue MD 06/22/2018 [facility] James Quevedo MD 06/22/2018 Office visit [...] [facility] Madonna Bailey MD 03/07/2017 [facility] James Quevedo MD 02/26/2017 Office visit [...] 06/16/2012 Office visit Jovon Ly MD 01/20/2012 [facility] Madonna Bailey MD 01/20/2012 Office visit Lemuel Rivera MD 12/17/2011 Office visit Jovon Ly MD 11/25/2011 Office visit Lemuel Rivera MD 08/06/2011 Office visit Lemuel Rivera MD 06/16/2011 Office visit Jovon Ly MD 06/12/2011 [facility] Shelley Bailey MD 06/12/2011 Office visit Lemuel Rivera [...]
--- OUTSIDE RECORDS SUMMARY | 2019-05-12 11:39 | XMS REPORT ---
Author Author Tony Sue Organization [facility] Address [address] [place], [place] [id number] Care Team Providers Care Paper Production Engineer Name Role Phone Tony Sue PCP Tony [...] 1 TABLET BY MOUTH IN THE MORNING Klor-Con Sprinkle 10 mEq oral capsule, extended release 03/04/2018 TAKE 2 CAPSULES BY MOUTH IN THE MORNING gabapentin 300 mg oral capsule 03/04/2018 TAKE 1 CAPSULE BY MOUTH THREE TIMES DAILY furosemide 20 mg oral tablet 03/04/2018 TAKE 3 TABLETS BY MOUTH IN THE MORNING carvedilol 3.125 mg oral tablet 03/04/2018 TAKE 1 TABLET BY MOUTH TWICE DAILY lactulose 10 gram/15 mL oral solution 03/05/2018 TAKE 30ML'S BY MOUTH TWICE DAILY folic acid 1 mg oral tablet 03/05/2018 TAKE 1 TABLET BY MOUTH DAILY Levemir FlexTouch U-100 Insuln 100 unit/mL (3 mL) subcutaneous insulin pen 03/05/2018 INJECT 10 UNITS SUBCUTANEOUS TWICE DAILY amiodarone 200 mg oral tablet 03/05/2018 TAKE 1 TABLET BY MOUTH DAILY Florastor 250 mg oral capsule 06/02/2018 [...] 06/08/2018 TAKE 1 TABLET BY MOUTH DAILY metformin 500 mg oral tablet 06/08/2018 TAKE 1 TABLET BY MOUTH TWICE DAILY sertraline 100 mg oral tablet 06/22/2018 06/17/2019 take 1 tablet (100 mg) by oral route once daily for 90 days Name Start Date Expiration Date SIG [...] TIMES DAILY mirtazapine 30 mg oral tablet 01/13/2018 05/13/2018 TAKE ONE AND ONE-HALF TABLET BY MOUTH EVERY NIGHT AT BEDTIME Discontinued Name Start Date Discontinued Date SIG [...] HC BMI BSA BMI Percentile O2 Sat(%) 06/22/2018 1:26:00 PM 118 mmHg 76 mmHg [...] F 284.375 lbs 66 in 45.8989 kg/m 2.4509 m 93 % 05/28/2017 10:15:00 AM [...] 12:[address] HEAD/BRAIN W/O DYE Reviewed 07/31/2010 12:00 AM COMPREHEN METABOLIC PANEL [...] 03/24/2011 12:00 AM Kenalog 40 Mg Im-[facility]#[id number] (Terry) Reviewed 09/04/2014 12:00 AM X-RAY EXAM [...] Done Dental Inspection Reffered 11/07/2010 2:04 PM Caddie Consult Done 01/30/2011 12:00 AM Cholest Cry [...] Not Entered 11/02/2018 11/02/2018 999 Influenza 08/06/2010 [employer] Arjun. NOV Fluvirin > 12 Years [id number] Intramuscular Right Deltoid 08/06/2010 06/12/2009 999 Influenza 08/06/2011 sanofi pasteur PMC FLUZONE [id number] Intramuscular Left Arm 08/06/2011 05/28/2011 141 History [...] without prior episode Jun 22 2018 1:33PM Payers Insurance Name Company Name Plan Name Plan Number Policy Number Policy Group Number Start Date Medicare RHC Medicare RHC [id number] N/A [facility] [id number] N/A Medicare Part B Medicare Of [place] [id number] Saturday, 2005 Medicare Part A Medicare - Lab/Xray [id number] N/A History of Encounters Visit Date Visit Type Provider 06/22/[address] Tony Sue MD 06/02/[address] Tony Sue MD 02/11/2018 Hospital Madonna Bailey MD 02/11/[address] Tony Sue MD 02/10/2018 Office visit Jalil Mendez MD 02/09/2018 Hospital Madonna Bailey MD 11/23/2017 [facility] Madonna Bailey MD 09/23/2017 Office [...] MD 12/19/2016 Hospital Madonna Bailey MD 12/18/2016 [facility] Javier Carreno MD 12/04/2016 Office [...]
[2019-05-12 11:40] LABS: HEMOGLOBIN 9.9 G/DL (11.5-16.0); MEAN PLATELET VOLUME 10.8 FL (7.4-10.4); RED CELL DISTRIBUTION WIDTH 15.8 % (10.0-14.5); WHITE BLOOD COUNT 5.4 10^3/uL (4.3-11.0)
--- OUTSIDE RECORDS SUMMARY | 2019-05-12 11:41 | XMS REPORT ---
Author Author Tony Sue Organization [facility] Address [address] [place], [place] [id number] Care Team Providers Care Beamer Hand Name Role Phone Tony Sue PCP Tony [...] AM Kenalog 40 Mg Im-[facility]#[id number] (Terry) Reviewed 09/04/2014 12:00 AM X-RAY EXAM [...] Done Dental Inspection Reffered 11/07/2010 2:04 PM Gas Mask Inspector Consult Done 01/30/2011 12:00 AM Cholest [...] Not Entered 11/02/2018 11/02/2018 999 Influenza 08/06/2010 [employer] Arjun. NOV Fluvirin > 12 Years [id number] Intramuscular Right Deltoid 08/06/2010 06/12/2009 999 Influenza 08/06/2011 sanofi pasteur PMC FLUZONE [id number] Intramuscular Left Arm 08/06/2011 05/28/2011 141 History [...] Number Start Date Medicare RHC Medicare RHC [id number] N/A [id number] N/A Medicare Part B Medicare Of [place] [id number] Saturday, 2005 Medicare Part A Medicare - Lab/Xray [id number] N/A History of Encounters Visit Date Visit Type Provider 06/22/[address] Tony Sue MD 06/02/[address] Tony Sue MD 02/11/2018 Hospital Madonna Bailey MD 02/11/[address] Tony Sue MD 02/10/2018 Office visit Jalil Mendez MD 02/09/2018 [facility] [place] MD 11/23/2017 [place] MD 12/19/2016 [facility] Mad[place] Bailey MD 12/18/2016 [place] [...] Jalil Terry DO 07/17/2009 Office visit Jovon yL MD 06/26/2009 Procedures Jovon Ly MD
--- OUTSIDE RECORDS SUMMARY | 2019-05-12 11:44 | XMS REPORT ---
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 NOV Fluvirin > 12 Years [id number] Intramuscular Right Deltoid 08/06/2010 06/12/2009 999 Influenza 08/06/2011 sanofi pasteur PMC FLUZONE [id number] Intramuscular Left Arm 08/06/2011 05/28/2011 141 History [...] 2:59PM Chronic diarrhea Jun 02 2018 3:52PM Payers Insurance Name Company Name Plan Name Plan Number Policy Number Policy Group Number Start Date Medicare RHC Medicare RHC [id number] N/A BCBS [facility] [id number] N/A Medicare Part B Medicare Of [place] [id number] Saturday, 2005 Medicare Part A Medicare - Lab/Xray [id number] N/A History of Encounters Visit Date Visit Type Provider 06/02/[address] Tony Sue MD [...] MD 03/07/2017 Hospital Madonna Bailey MD 03/07/2017 [facility] James Quevedo MD 02/26/2017 Office visit [...] 06/16/2011 Office visit Jovon Ly MD 06/12/2011 [facility] Madonna Bailey MD 06/12/2011 Office visit [...]
--- OUTSIDE RECORDS SUMMARY | 2019-05-12 11:45 | XMS REPORT ---
Author Author Tony Sue [facility] Address [address] [place], [place] [id number] Care Team Providers Care Department Clerk Name Role Phone Tony Sue PCP Tony Sue PreferredProvider Allergies and Adverse Reactions Name Reaction Notes SULFA (SULFONAMIDES) IV DYE, IODINE CONTAINING Wellbutrin Plan of Treatment Not available. Medications Active Name Start Date Estimated Completion Date SIG Comments Humalog KwikPen 100 unit/mL subcutaneous insulin pen inject by subcutaneous route per prescriber's instructions. Insulin dosing requires individualization. Toujeo SoloStar 300 unit/mL (1.5 mL) subcutaneous insulin pen inject by subcutaneous route per prescriber's instructions. Insulin dosing requires individualization. Januvia 100 mg oral tablet take 1 tablet (100 mg) by oral route once daily Aspir-81 81 mg oral tablet,delayed release (DR/EC) take 1 tablet (81 mg) by oral route once daily amlodipine 5 mg oral tablet 02/26/2017 02/21/2018 take 1.5 tablets by oral route daily for 90 days Lasix 40 mg oral tablet 03/17/2017 12/12/2017 take 2 tablets (80 mg) by oral route 2 times per day for 90 days gabapentin 300 mg oral capsule 04/17/2017 take 1 capsule (300 mg) by oral route 3 times per day for 30 days gabapentin 300 mg oral capsule 06/11/2017 TAKE 1 CAPSULE BY MOUTH THREE TIMES A DAY carvedilol 3.125 mg oral tablet 06/11/2017 take 1 tablet (3.125 mg) by oral route 2 times per day with food for 30 days simvastatin 80 mg oral tablet 08/16/2017 12/14/2017 TAKE 1 TABLET BY MOUTH IN THE EVENING mirtazapine 7.5 mg oral tablet 08/28/2017 take 2 tablets (15 mg) by oral route once daily at bedtime for 30 days Cipro 250 mg oral tablet 09/01/2017 take 1 tablet (250 mg) by oral route every 12 hours for 7 days Name Start Date Expiration [...] 30 days carvedilol 3.125 mg oral tablet 12/04/2016 06/02/2017 take 1 tablet (3.125 mg) by oral route 2 times per day with food for 30 days gabapentin 300 mg oral capsule 01/08/2017 04/08/2017 take 1 capsule (300 mg) by oral route 3 times per day for 30 days amiodarone 200 mg oral tablet 03/02/2017 05/31/2017 take 2 tablets (400 mg) by oral route once daily for 30 days Synthroid 125 mcg oral tablet 04/27/2017 08/25/2017 take 1 tablet (125 mcg) by oral route once daily for 30 days potassium chloride 20 mEq oral tablet extended release 04/27/2017 08/05/2017 take 1 tablet (20 meq) by oral route 2 times per day with food for 30 days Discontinued Name Start Date [...] oral route once daily for 30 days Mirapex 1 mg oral tablet 03/17/2017 take [...] by oral route 2 times a day Problem List Description Status Onset Allergic rhinitis Active Chronic Back Pain Active degenerative disk disease Active depression Active Diabetes Mellitus, Type II Active Hyperlipidemia Active Hypothyroidism, Acquired Active Neuropathy Active spinal stenosis Active Hypertension, Benign Essential Active Actinic Keratosis Active Major Depression (Single Episode) Active 10/23/2009 Diabetes Mellitus, Type II Active 06/01/2015 Hypertensive Heart Disease With Heart Failure Active 12/04/2016 Diabetes mellitus with neurological manifestations, uncontrolled Active 12/04/2016 Vital Signs Date Time BP-Sys(mm[Hg] BP-Maegan(mm[Hg]) HR(bpm) RR(rpm) Temp WT HT HC BMI BSA BMI Percentile O2 Sat(%) 08/28/2017 9:55:00 AM 124 mmHg 58 mmHg [...] rpm 98.6 F 295 lbs 63.5 in 51.44 kg/m2 2.45 m2 06/12/2011 8:45:00 AM 118 mmHg 62 mmHg 92 bpm 20 rpm 97.8 F 290.375 lbs 63.5 in 50.6303 kg/m 2.4292 m 94 % 05/08/2011 2:01:00 PM 125 mmHg [...] rpm 97.8 F 288.125 lbs 66 in 46.50 kg/m2 2.47 m2 97 % 01/28/2010 3:00:00 PM 130 mmHg 78 mmHg 70 bpm 18 rpm 97.7 F 285.25 lbs 66 in 46.0401 kg/m 2.4546 m 96 % 12/07/2009 1:47:00 PM 150 mmHg 80 mmHg 82 bpm 18 rpm 97.4 F 286.375 lbs 66 in 46.22 kg/m2 2.46 m2 95 % 11/21/2009 9:18:00 AM 146 mmHg 66 mmHg 80 bpm 18 rpm 97.2 F 289.25 lbs 11/06/2009 3:45:00 PM 140 mmHg 80 mmHg 85 bpm 20 rpm 97.4 F 288.125 lbs 66 in 46.50 kg/m2 2.47 m2 94 % 10/23/2009 10:20:00 AM 132 mmHg 74 mmHg 72 bpm 18 rpm 97 F 291.125 lbs 97 % Social History Name Description Comments Tobacco Former smoker Denies illicit substance abuse 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 Alcohol Use 2-3oz wine [...] WBC Reviewed 02/04/2017 12:00 AM ELECTROCARDIOGRAM TRACING Returned 02/12/2017 12:00 AM METABOLIC PANEL TOTAL CA Reviewed 02/12/2017 12:00 AM ASSAY OF NATRIURETIC PEPTIDE Reviewed 03/17/2017 12:00 AM COMPREHEN METABOLIC PANEL Reviewed 03/23/2017 12:00 AM COMPREHEN METABOLIC PANEL Reviewed 08/28/2017 12:00 AM URNLS DIP STICK/TABLET RGNT AUTO W/O MICROSCOPY Returned 08/12/2017 12:00 AM ASSAY THYROID STIM HORMONE Returned 08/12/2017 12:00 AM ASSAY OF TOTAL THYROXINE Returned 08/12/2017 12:00 AM COMPREHEN METABOLIC PANEL Returned 08/12/2017 12:00 AM RBC SED RATE AUTOMATED Returned 08/12/2017 12:00 AM COMPLETE CBC W/AUTO DIFF WBC Returned 08/12/2017 12:00 AM RADIOLOGIC EXAM CHEST 2 VIEWS FRONTAL&LATERAL Returned 04/30/2010 12:00 AM COMPREHEN METABOLIC PANEL Reviewed 04/30/2010 12:00 AM LIPID PANEL Reviewed 04/30/2010 12:00 AM GLYCOSYLATED HEMOGLOBIN TEST Reviewed 07/31/2010 12:00 AM COMPREHEN METABOLIC PANEL [...] 12:00 AM Kenalog 40 Mg Im-[facility]#[id number] (Terry) Reviewed 09/04/2014 12:00 AM X-RAY EXAM OF FOOT Reviewed 10/03/2014 12:00 AM MRI BRAIN STEM W/O & W/DYE Reviewed 06/12/2011 12:00 AM ELECTROCARDIOGRAM COMPLETE Reviewed 06/12/2011 12:00 AM COMPLETE CBC W/AUTO DIFF WBC Reviewed 06/12/2011 12:00 AM COMPREHEN METABOLIC PANEL Reviewed Results Summary Date and Description Results 01/17/2010 9:05 AM LDL (CALC) 78.0 mg/dLTOT [...] 86 eGFR >60 mL/min/1.73 m2eGFR AA* >60 04/22/2010 8:25 AM TRIGLYCERIDES 205.0 mg/dLCHOLESTEROL 157.0 mg/dLHDL 37.0 mg/dLTOT CHOL/HDL 4.2 LDL (CALC) 79.0 mg/dLGLYCOHEMOGLOBIN A1C 7.0 %GLUCOSE 110.0 mg/dLSODIUM 143.0 mmol/LPOTASSIUM 4.80 mmol/LCHLORIDE 105.0 mmol/LCO2 27.0 mmol/LBUN 18.0 mg/dLCREATININE 0.90 mg/dLSGOT/AST 22.0 IU/LSGPT/ALT 21.0 IU/LALK PHOS 72.0 IU/LTOTAL PROTEIN 7.20 g/dLALBUMIN 4.0 g/dLTOTAL BILI 0.30 mg/dLCALCIUM 9.70 mg/dLAGE 69 GFR NonAA 62 GFR AA 75 eGFR >60 mL/min/1.73 m2eGFR AA* >60 07/30/2010 8:19 AM TRIGLYCERIDES 156.0 mg/dLCHOLESTEROL 150.0 mg/dLHDL 43.0 mg/dLTOT CHOL/HDL 3.5 LDL (CALC) 76.0 mg/dLGLYCOHEMOGLOBIN A1C 7.40 % 10/31/2010 8:43 AM TRIGLYCERIDES 262.0 mg/dLCHOLESTEROL 149.0 mg/dLHDL 35.0 mg/dLTOT CHOL/HDL 4.3 LDL (CALC) 62.0 mg/dLGLYCOHEMOGLOBIN A1C 6.70 %GLUCOSE 125.0 mg/dLSODIUM 140.0 mmol/LPOTASSIUM 4.10 mmol/LCHLORIDE 107.0 mmol/LCO2 24.0 mmol/LBUN 16.0 mg/dLCREATININE 0.80 mg/dLSGOT/AST 18.0 IU/LSGPT/ALT 14.0 IU/LALK PHOS 72.0 IU/LTOTAL PROTEIN 6.90 g/dLALBUMIN 3.90 g/dLTOTAL BILI 0.20 mg/dLCALCIUM 9.50 mg/dLAGE 69 GFR NonAA 71 GFR AA 86 eGFR >60 mL/min/1.73 m2eGFR AA* >60 01/30/2011 8:52 AM TRIGLYCERIDES 224.0 mg/dLCHOLESTEROL 172.0 mg/dLHDL 43.0 mg/dLTOT CHOL/HDL 4.0 LDL (CALC) 84.0 mg/dLGLYCOHEMOGLOBIN A1C 7.70 %GLUCOSE 85.0 mg/dLSODIUM 142.0 mmol/LPOTASSIUM 4.40 mmol/LCHLORIDE 103.0 mmol/LCO2 28.0 mmol/LBUN 14.0 mg/dLCREATININE 0.80 mg/dLSGOT/AST 20.0 IU/LSGPT/ALT 20.0 IU/LALK PHOS 74.0 IU/LTOTAL PROTEIN 7.50 g/dLALBUMIN 4.20 g/dLTOTAL BILI 0.30 mg/dLCALCIUM 10.40 mg/dLAGE 70 GFR NonAA 71 GFR AA 86 eGFR >60 mL/min/1.73 m2eGFR AA* >60 04/29/2011 8:42 AM TRIGLYCERIDES 130.0 mg/dLCHOLESTEROL 171.0 [...] AA 53 eGFR 44 eGFR AA* 53 History Of Immunizations Name Date Admin Mfg Name Mfg Code Trade Name Lot# Route Inj Vis Given Vis Pub CVX Influenza 09/04/2008 Not Entered NE Not Entered Not Entered Not Entered 11/02/2017 11/02/2017 999 Influenza 08/06/2010 [employer] Arjun. NOV Fluvirin > 12 Years [id number] Intramuscular Right Deltoid 08/06/2010 06/12/2009 999 Influenza 08/06/2011 sanofi pasteur [facility] Fluzone [id number] Intramuscular Left Arm 08/06/2011 05/28/2011 141 History [...] Episode) Nov 06 2009 4:51PM Hyperlipidemia Hypothyroidism, Acquired Neuropathy Allergic rhinitis spinal stenosis Chronic Back [...] major depressive disorder Aug 28 2017 9:59AM Payers Insurance Name Company Name Plan Name Plan Number Policy Number Policy Group Number Start Date Medicare RHC Medicare RHC [id number] [id number] N/A Medicare Part B Medicare Of [place] [id number] Saturday, 2005 Medicare Part A Medicare - Lab/Xray [id number] N/A History of Encounters Visit Date Visit Type Provider 08/28/[address] Tony Sue MD 08/12/[address] Tony Sue MD 05/28/[address] Tony Sue MD 03/17/[address] Tony Sue MD 03/07/2017 [facility] Madonna Bailey MD 03/07/2017 [facility] James Quevedo MD 02/26/[address] Tony Sue MD 02/12/[address] Tony Sue MD 02/05/[address] Tony Sue MD 02/04/2017 Laboratory Madonna Bailey MD 02/04/[address] Tony Sue MD 01/13/[address] Tony Sue MD 12/19/2016 Hospital Madonna Bailey MD 12/18/2016 [facility] Javier Carreno MD 12/04/[address] [...]
--- OUTSIDE RECORDS SUMMARY | 2019-05-12 11:47 | XMS REPORT ---
Author Author Tony Sue [facility] Address [address] [place], [place] [id number] Care Team Providers Care Precision Layout Worker Name Role Phone Tony Sue PCP Tony Sue PreferredProvider Allergies and Adverse Reactions Name Reaction Notes SULFA (SULFONAMIDES) IV DYE, IODINE CONTAINING Wellbutrin Plan of Treatment Not available. Medications Active Name Start Date Estimated Completion Date SIG Comments Lasix oral tablet 40 mg take 1 tablet (40 mg) by oral route once daily potassium chloride oral tablet extended release 10 mEq 1 tab daily Humalog KwikPen 100 unit/mL subcutaneous insulin pen [...] (81 mg) by oral route once daily Mirapex 1 mg oral tablet take 1 tablet (1 mg) by oral route 3 times per day Actos 15 mg oral tablet take 1 tablet (15 mg) by oral route once daily carvedilol 3.125 mg oral tablet 12/04/2016 06/02/2017 take 1 tablet (3.125 mg) by oral route 2 times per day with food for 30 days gabapentin 300 mg oral capsule 01/08/2017 04/08/2017 take 1 capsule (300 mg) by oral route 3 times per day for 30 days amiodarone 200 mg oral tablet take 2 tablets (400 mg) by oral route once daily in morning amlodipine 5 mg oral tablet take 1 tablet (5 mg) by oral route once daily Name Start Date Expiration Date SIG Comments gabapentin Oral Capsule 300 mg 08/23/2010 09/22/2010 TAKE 1 CAPSULE BY MOUTH TWO TIMES A DAY Syringe 1cc 8mm 31 gauge needle 01/03/2011 08/01/2011 Use QID DM 250.01 DM type 1 amoxicillin Oral Capsule 500 mg 03/24/2011 04/03/2011 take 2 capsules by oral route 3 times a day for 10 days simvastatin Oral Tablet 80 mg 04/10/2011 05/10/2011 TAKE 1 TABLET BY MOUTH IN THE EVENING one touch test strips 05/22/2011 04/16/2012 test FBS and up to TID for DM type 2 250.0 Novolog Flexpen Subcutaneous Insulin Pen 100 unit/mL 07/15/2011 02/10/2012 INJECT 15 UNITS UNDER THE SKIN SUBCUTANEOUSLY BEFORE BREAKFAST AND LUNCH, INJECT 24 UNITS BEFORE SUPPER Synthroid Oral Tablet 150 mcg 07/15/2011 02/10/2012 TAKE 1 TABLET BY MOUTH ONCE A DAY Lantus Subcutaneous Solution 100 unit/mL 07/15/2011 02/10/2012 [...] oral route once daily for 30 days Discontinued Name Start Date [...] oral route once daily for 30 days Neurontin 300 mg oral capsule 01/13/2017 take 1 capsule (300 mg) by oral route 3 times per day generic Nystop 100,000 unit/gram topical powder 01/13/2017 apply to the affected area(s) by topical route 3 times per day PRN Problem List Description Status Onset Allergic rhinitis [...] HC BMI BSA BMI Percentile O2 Sat(%) 01/13/2017 2:48:00 PM 154 mmHg 92 mmHg [...] Reviewed 01/13/2017 12:00 AM COMPREHEN METABOLIC PANEL Returned 04/30/2010 12:00 AM COMPREHEN METABOLIC PANEL [...] 03/24/2011 12:00 AM Kenalog 40 Mg Im-[facility]#[id number] (Terry) Reviewed 09/04/2014 12:00 AM X-RAY EXAM OF FOOT Reviewed 10/03/2014 12:00 AM MRI BRAIN STEM W/O & W/DYE Reviewed 06/12/2011 12:00 AM ELECTROCARDIOGRAM COMPLETE Reviewed 06/12/2011 12:00 AM COMPLETE CBC W/AUTO DIFF WBC Reviewed 06/12/2011 12:00 AM COMPREHEN METABOLIC PANEL Reviewed Results Summary Data and Description Results 04/06/2009 12:00 AM Microalbumin/creat [...] 12:00 AM Mammogram -Women over 40 Normal 07/11/2010 2:39 PM MRI CERVICAL SPINE W/O CONTRAST [facility] MRI CERVICAL SPINE W/O CONTRAST [place], [place] [address] MRI CERVICAL SPINE W/O CONTRAST Diagnostic Imaging Report MRI CERVICAL SPINE W/O CONTRAST Name: ROMY BAKER MRI CERVICAL SPINE W/O CONTRAST Patient#: [id number] Room MRI CERVICAL SPINE W/O CONTRAST Stay Type: O/P MR#: MRI CERVICAL SPINE W/O CONTRAST Admit Date: 07/11/2010 Disc MRI CERVICAL SPINE W/O CONTRAST Date of : 1940 Age: MRI CERVICAL SPINE W/O CONTRAST Telephone#: [phone] - MRI CERVICAL SPINE W/O CONTRAST Financial Class: MB Orde MRI CERVICAL SPINE W/O CONTRAST Report Location: MRI CERVICAL SPINE W/O CONTRAST Admitting Physician: HERSON LY MD MRI CERVICAL SPINE W/O CONTRAST Ordering Physician: HERSON LY MD MRI CERVICAL SPINE W/O CONTRAST Family Physician: MRI CERVICAL SPINE W/O CONTRAST [employer] Worker Date/Time: 07/23/2010 04:34 [place] MRI CERVICAL SPINE W/O CONTRAST Unsigned Transcriptions are preliminary reports MRI CERVICAL SPINE W/O CONTRAST represent a Medical or Legal Document MRI CERVICAL SPINE W/O CONTRAST MRI CERVICAL SPINE W/O CONTRAST [id number] COMPLET MRI CERVICAL SPINE W/O CONTRAST Spine Proc Reason: NECK PAIN W/RUE RADICULOPATHY MRI CERVICAL SPINE W/O CONTRAST MRI cervical spine MRI CERVICAL SPINE W/O CONTRAST Sagittal and axial T1 and T2- weighted images of MRI CERVICAL SPINE W/O CONTRAST There is a little motion artifact. MRI CERVICAL SPINE W/O CONTRAST The visualized structures of the posterior fossa a MRI CERVICAL SPINE W/O CONTRAST appearance. The vertebral bodies are normal in he MRI CERVICAL SPINE W/O CONTRAST alignment. Mild loss of disc height is seen throu MRI CERVICAL SPINE W/O CONTRAST At C2 -3 there is no disc bulge or disc herniation MRI CERVICAL SPINE W/O CONTRAST foraminal stenosis is seen. MRI CERVICAL SPINE W/O CONTRAST At C3 -4 there is a mild posterior disc bulge. Th MRI CERVICAL SPINE W/O CONTRAST dimension. The neural foramina are patent. MRI CERVICAL SPINE W/O CONTRAST At C4 -5 there is a mild posterior disc bulge. No MRI CERVICAL SPINE W/O CONTRAST stenosis is seen. MRI CERVICAL SPINE W/O CONTRAST At C5 -6 there is a mild posterior disc bulge. Th MRI CERVICAL SPINE W/O CONTRAST dimension. The neural foramina are patent. MRI CERVICAL SPINE W/O CONTRAST At C6 -7 and C7-T1 there are no disc bulges or dis MRI CERVICAL SPINE W/O CONTRAST neural foraminal stenosis is seen. MRI CERVICAL SPINE W/O CONTRAST IMPRESSION: MRI CERVICAL SPINE W/O CONTRAST 1. Mild degenerative disc disease in the cervical MRI CERVICAL SPINE W/O CONTRAST 2. Mild to borderline central spinal stenosis at MRI CERVICAL SPINE W/O CONTRAST are patent. MRI CERVICAL SPINE W/O CONTRAST 3. The MRI of the cervical spine is otherwise unr MRI CERVICAL SPINE W/O CONTRAST Dictating: Tony De Luna M.D. MRI CERVICAL SPINE W/O CONTRAST Reviewed and Electronically Signed by: Tony France MRI CERVICAL SPINE W/O CONTRAST Signed Date/Time: 07/23/2010 04:34 MRI CERVICAL SPINE W/O CONTRAST Page 1 07/30/2010 12:00 AM Cholest Cry Stone Ql IR 150.0 %LDLc SerPl-mCnc 76.0 mg/dLGlucose SerPl-mCnc 93.0 mg/dL 07/30/2010 8:19 AM TRIGLYCERIDES 156.0 mg/dLCHOLESTEROL 150.0 mg/dLHDL 43.0 mg/dLTOT CHOL/HDL 3.5 LDL (CALC) 76.0 mg/dLGLYCOHEMOGLOBIN A1C 7.40 %FREE T4 1.08 TSH 2.390 uIU/mLGLUCOSE 93.0 mg/dLSODIUM 141.0 mmol/LPOTASSIUM 4.20 mmol/LCHLORIDE 105.0 mmol/LCO2 27.0 mmol/LBUN 14.0 mg/dLCREATININE 0.80 mg/dLSGOT/AST 23.0 IU/LSGPT/ALT 17.0 IU/LALK PHOS 68.0 IU/LTOTAL PROTEIN 7.60 g/dLALBUMIN 3.90 g/dLTOTAL BILI 0.30 mg/dLCALCIUM 9.60 mg/dLAGE 69 GFR NonAA 71 GFR AA 86 eGFR >60 mL/min/1.73 m2eGFR AA* >60 08/06/2010 12:00 AM Dialated Eye Exam- Diabetic [...] Done Dental Inspection Reffered 11/07/2010 2:04 PM Qc Manager Consult Done 01/30/2011 12:00 AM Cholest [...] 48.0 mg/dLTOT CHOL/HDL 3.6 LDL (CALC) 97.0 mg/dLGLYCOHEMOGLOBIN A1C 7.10 %GLUCOSE 107.0 mg/dLSODIUM 141.0 mmol/LPOTASSIUM 4.90 mmol/LCHLORIDE 105.0 [...] 99 eGFR >60 mL/min/1.73 m2eGFR AA* >60 12/18/2016 2:15 PM TROPONIN-I AD <0.04 ng/mL 12/18/2016 5:17 PM GLUCOSE POCT 240.0 mg/dL 12/18/2016 8:45 PM GLUCOSE POCT 231.0 mg/dL 12/19/2016 5:21 AM GLUCOSE POCT 244.0 mg/dL 12/19/2016 6:50 AM HGB A1C 8.40 %Est Avg Glucose 194.4 mg/dLTOTAL BILI 3.70 mg/dLDIRECT BILI 2.80 mg/dLINDIRECT BILI 0.90 mg/dLTSH 1.080 uIU/mLGLUCOSE 171.0 mg/dLSODIUM 137.0 mmol/LPOTASSIUM 4.30 mmol/LCHLORIDE 99.0 mmol/LCO2 27.0 mmol/LBUN 27.0 mg/dLCREATININE 1.70 mg/dLSGOT/AST 228.0 IU/LSGPT/ALT 173.0 IU/LALK PHOS 152.0 IU/LTOTAL PROTEIN 7.10 g/dLALBUMIN 3.50 g/dLTOTAL BILI 3.70 mg/dLCALCIUM 9.60 mg/dLAGE 75 GFR NonAA 29 GFR AA 35 eGFR 29 eGFR AA* 35 MAGNESIUM 1.80 mg/dLTRIGLYCERIDES 92.0 mg/dLCHOLESTEROL 115.0 mg/dLHDL 44.0 mg/dLTOT CHOL/HDL 2.6 LDL (CALC) 53.0 mg/dLTROPONIN-I AD 0.070 ng/mLWBC 9.5 RBC 4.01 HGB 11.10 g/dLHCT 35.90 %MCV 90.0 fLMCH 27.70 pgMCHC 30.90 g/dLRDW SD 48 RDW CV 14.70 %MPV 10.80 fLPLT 212 NRBC# 0.00 NRBC% 0.0 %NEUT 71.70 %%LYMP 18.50 %%MONO 8.80 %%EOS 0.30 %%BASO 0.30 %#NEUT 6.82 #LYMP 1.76 #MONO 0.84 #EOS 0.03 #BASO 0.03 MANUAL DIFF NOT IND SEDRATE 78.0 mm/hrC REACTIVE PROTEIN 88.0 mg/L 12/19/2016 11:00 AM GLUCOSE POCT 263.0 mg/dL 12/19/2016 11:25 AM LACTIC ACID 2.2 mmol/L 12/19/2016 11:50 AM COLOR YELLOW APPEARANCE CLEAR SPEC GRAV 1.020 pH 5.5 PROTEIN 30 GLUCOSE NEGATIVE mg/dLKETONE NEGATIVE BILIRUBIN MODERATE BLOOD TRACE-INTACT NITRITE POSITIVE LEUK SCREEN MODERATE WBC/HPF 20-50 RBC/HPF NEGATIVE CASTS/LPF SEE BELOW /LPFCRYSTALS NEGATIVE MUCOUS THRDS NEGATIVE BACTERIA 2++ EPITH CELLS NEGATIVE /HPFTRICHOMONAS NEGATIVE YEAST NEGATIVE CULT SET UP? NO 12/19/2016 12:09 PM CREAT UR RAND 186.70 mg/dLNA UR RANDOM 23.0 mmol/L 01/05/2017 8:50 AM WBC 9.4 RBC 4.21 HGB 11.60 g/dLHCT 38.70 %MCV 92.0 fLMCH 27.60 pgMCHC 30.0 g/dLRDW SD 50 RDW CV 14.60 %MPV 10.30 fLPLT 308 NRBC# 0.00 NRBC% 0.0 %NEUT 69.60 %%LYMP 20.90 %%MONO 6.80 %%EOS 1.70 %%BASO 0.40 %#NEUT 6.54 #LYMP 1.96 #MONO 0.64 #EOS 0.16 #BASO 0.04 MANUAL DIFF NOT IND GLUCOSE 186.0 mg/dLSODIUM 143.0 mmol/LPOTASSIUM 4.40 mmol/LCHLORIDE 105.0 mmol/LCO2 28.0 mmol/LBUN 18.0 mg/dLCREATININE 1.10 mg/dLSGOT/AST 20.0 IU/LSGPT/ALT 10.0 IU/LALK PHOS 94.0 IU/LTOTAL PROTEIN 7.30 g/dLALBUMIN 3.80 g/dLTOTAL BILI 0.50 mg/dLCALCIUM 9.70 mg/dLAGE 76 GFR NonAA 48 GFR AA 58 eGFR 48 eGFR AA* 58 History Of Immunizations Name Date Admin Mfg Name Mfg Code Trade Name Lot# Route Inj Vis Given Vis Pub CVX Influenza 09/04/2008 Not Entered NE Not Entered Not Entered Not Entered 11/02/2016 11/02/2016 999 Influenza 08/06/2010 FOODSCROOGE Arjun. NOV Fluvirin > 12 Years [id number] Intramuscular Right Deltoid 08/06/2010 06/12/2009 999 Influenza 08/06/2011 sanofi [facility] Fluzone [id number] Intramuscular Left Arm 08/06/2011 05/28/2011 141 History [...] (congestive) heart failure Jan 13 2017 2:59PM Payers Insurance Name Company Name Plan Name Plan Number Policy Number Policy Group Number Start Date Medicare RHC Medicare RHC [id number] N/A BCBS Bcbs Natan [place] [id number] N/A Medicare Part B Medicare Natan [place] [id number] Saturday, 2005 Medicare Part A Medicare - Lab/Xray [id number] N/A History of Encounters Visit Date Visit Type Provider 01/13/[address] Tony Sue MD 12/18/2016 [facility] Javier Carreno MD 12/04/[address] Tony Sue MD 11/06/2014 Office visit Yamilet VALLES 10/03/2014 Office visit Yamilet VALLES 09/04/2014 Office visit Yamilet VALLES 06/12/2014 Office visit Yamilet VALLES 12/12/2013 Office visit Yamilet VALLES 05/25/2013 Office visit Herson Ly MD 12/20/2012 Office visit Herson Ly MD 06/16/2012 Office visit Herson Ly MD 01/20/2012 [facility] Madonna Bailey MD 01/20/2012 Office visit Lemuel Rivera MD 12/17/2011 Office visit Herson Ly MD 11/25/2011 Office visit Lemuel Rivera MD 08/06/2011 Office visit Lemuel Rivera MD 06/16/2011 Office visit Herson Ly MD 06/12/2011 [facility] Madonna Bailey MD 06/12/2011 Office visit Lemuel Rivera MD 05/08/2011 Office visit Lemuel Rivera MD 03/24/2011 Office visit Jalil Terry DO 02/11/2011 Procedures Herson Ly MD 02/06/2011 Office visit Jalil Terry DO 01/20/2011 Office visit Herson Ly MD 11/07/2010 Office visit Jalil Terry DO 09/19/2010 Office visit Herson Ly MD 08/20/2010 Office visit Herson Ly MD 08/07/2010 Office visit Jalil Terry DO 08/06/2010 Office visit Jalil Terry DO 07/05/2010 Office visit Herson Ly MD 04/30/2010 Office visit Jalil Terry DO 01/28/2010 Office visit Jalil Terry DO 12/07/2009 Office visit Jalil Terry DO 11/21/2009 Office visit Herson Ly MD 11/06/2009 Office visit Jalil Terry DO 10/23/2009 Office visit Jalil Terry DO 09/12/2009 Office visit Herson Ly MD 07/25/2009 Office visit Jalil Terry DO 07/17/2009 Office visit Herson Ly MD 06/26/2009 Procedures Herson Ly MD
--- OUTSIDE RECORDS SUMMARY | 2019-05-12 11:49 | XMS REPORT ---
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 Name Role Phone Tony Sue PCP Tony Sue PreferredProvider Allergies and Adverse Reactions Name Reaction Notes SULFA (SULFONAMIDES) IV DYE, IODINE CONTAINING Wellbutrin Plan of Treatment Planned Activity Comments Planned Date Planned Time Plan/Goal MRI LUMBAR SPINE W/O CONTRAST 09/23/2017 12:00 AM Medications Active Name Start Date [...] 3 times per day for 30 days simvastatin 80 mg oral tablet 08/16/2017 12/14/2017 TAKE 1 TABLET BY MOUTH IN THE EVENING Cipro 250 mg oral tablet 09/01/2017 take 1 tablet (250 mg) by oral route every 12 hours for 7 days gabapentin 300 mg oral capsule 09/14/2017 01/12/2018 TAKE 1 CAPSULE BY MOUTH THREE TIMES A DAY carvedilol 3.125 mg oral tablet 09/14/2017 03/13/2018 TAKE 1 TABLET BY MOUTH TWO TIMES A DAY WITH FOOD potassium chloride 20 mEq oral tablet extended release 09/14/2017 03/13/2018 take 1 tablet (20 meq) by oral route 2 times per day with food for 30 days Synthroid 125 mcg oral tablet 09/14/2017 03/13/2018 take 1 tablet (125 mcg) by oral route once daily for 30 days mirtazapine 15 mg oral tablet 09/23/2017 take 2 tablets (30 mg) by oral route once daily before bedtime for 30 days Name Start Date Expiration [...] HC BMI BSA BMI Percentile O2 Sat(%) 09/23/2017 11:20:00 AM 126 mmHg 70 mmHg [...] rpm 97.1 F 289.25 lbs 66 in 46.69 kg/m2 2.47 m2 91 % 02/06/2011 2:25:00 PM 100 mmHg 60 mmHg 75 bpm 18 rpm 98.4 F 293.375 lbs 66 in 47.3515 kg/m 2.4893 m 97 % 01/20/2011 1:04:00 PM 162 mmHg [...] rpm 97.2 F 293 lbs 66 in 47.29 kg/m2 2.49 m2 94 % 08/06/2010 2:54:00 PM 140 mmHg 80 mmHg 78 bpm 20 rpm 97.4 F 293 lbs 66 in 47.291 kg/m 2.4877 m 95 % 07/05/2010 8:13:00 AM 152 mmHg [...] Reviewed 03/24/2011 12:00 AM Kenalog 40 Mg Im-[facility]#[id number] (Terry) Reviewed 09/04/2014 12:00 AM X-RAY EXAM [...] Not Entered 11/02/2017 11/02/2017 999 Influenza 08/06/2010 Ischemix Arjun. NOV Fluvirin > 12 Years [id number] Intramuscular Right Deltoid 08/06/2010 06/12/2009 999 Influenza 08/06/2011 [facility] Fluzone [id number] Intramuscular Left Arm 08/06/2011 05/28/2011 141 History [...] Feb 2011 1:09PM Lumbar spinal stenosis Feb 15 2011 1:09PM Cervicalgia Feb 15 2011 1:09PM Carpal Tunnel Syndrome Feb 15 2011 1:09PM Preoperative Examination Jan 20 2012 9:12AM Lumbar degenerative disc disease Jun 16 2012 1:03PM Lumbar spinal stenosis Jun 16 2012 1:03PM Cervicalgia Jun 16 2012 1:03PM Carpal Tunnel Syndrome Jun 16 2012 1:03PM Lumbar degenerative disc disease Feb 18 2012 1:16PM Lumbar spinal stenosis Feb 2012 1:16PM Cervicalgia Feb 18 2012 1:16PM [...] both lower extremities Sep 23 2017 11:24AM Payers Insurance Name Company Name Plan Name Plan Number Policy Number Policy Group Number Start Date Medicare RHC Medicare RHC [id number] N/[id number] N/A Medicare Part B Medicare Of [place] [id number] Saturday, 2005 Medicare Part A Medicare - Lab/Xray [id number] N/A History of Encounters Visit Date Visit Type Provider 09/23/[address] Tony Sue MD [...] MD 12/19/2016 Hospital Madonna Bailey MD 12/18/2016 [facility] Javier Carreno MD 12/04/2016 Office visit [...]
--- OUTSIDE RECORDS SUMMARY | 2019-05-12 11:52 | XMS REPORT ---
Author Author Tony Sue [facility] Address [address] [place], [place] [phone] Care Team Providers Care Shank Sorter Name Role Phone Tony Sue PCP Tony Sue PreferredProvider Allergies and Adverse Reactions Name Reaction Notes SULFA (SULFONAMIDES) IV DYE, IODINE CONTAINING Wellbutrin Plan of Treatment Planned Activity Comments Planned Date Planned Time Plan/Goal EKG. 02/04/2017 12:00 AM Medications Active Name Start Date [...] (81 mg) by oral route once daily carvedilol 3.125 mg oral tablet 12/04/2016 06/02/2017 take 1 tablet (3.125 mg) by oral route 2 times per day with food for 30 days gabapentin 300 mg oral capsule 01/08/2017 04/08/2017 take 1 capsule (300 mg) by oral route 3 times per day for 30 days Synthroid 125 mcg oral tablet 02/05/2017 04/06/2017 take 1 tablet (125 mcg) by oral route once daily for 30 days simvastatin 80 mg oral tablet 02/05/2017 04/06/2017 TAKE 1 TABLET BY MOUTH IN THE EVENING potassium chloride 10 mEq oral tablet extended release 02/05/2017 04/06/2017 1 tab daily for 30 days Xeloda 500 mg oral tablet take 3 tablets by oral route 2 times a day amlodipine 5 mg oral tablet 02/26/2017 02/21/2018 take 1.5 tablets by oral route daily for 90 days amiodarone 200 mg oral tablet 03/02/2017 05/31/2017 take 2 tablets (400 mg) by oral route once daily for 30 days Lasix 40 mg oral tablet 03/17/2017 12/12/2017 take 2 tablets (80 mg) by oral route 2 times per day for 90 days Name Start Date Expiration [...] HC BMI BSA BMI Percentile O2 Sat(%) 03/17/2017 10:57:00 AM 138 mmHg 74 mmHg [...] Former smoker Denies illicit substance abuse 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 Alcohol Use 2-3oz [...] AM COMPLETE CBC W/AUTO DIFF WBC Reviewed 02/12/2017 12:00 AM METABOLIC PANEL TOTAL CA Reviewed 02/12/2017 12:00 AM ASSAY OF NATRIURETIC PEPTIDE Reviewed 03/17/2017 12:00 AM COMPREHEN METABOLIC PANEL Reviewed 04/30/2010 12:00 AM COMPREHEN METABOLIC PANEL [...] AM Kenalog 40 Mg Im-[facility]#[id number] ([place]arrison) Reviewed 09/04/2014 12:00 AM X-RAY EXAM [...] 2:39 PM MRI CERVICAL SPINE W/O CONTRAST [facility] MRI CERVICAL SPINE W/O CONTRAST [place], [place] [address] MRI CERVICAL SPINE W/O CONTRAST Diagnostic Imaging Report MRI CERVICAL SPINE W/O CONTRAST Name: ROMY BAKER MRI CERVICAL SPINE W/O CONTRAST Patient#: [id number] Room MRI CERVICAL SPINE W/O CONTRAST Stay [...] Family Physician: MRI CERVICAL SPINE W/O CONTRAST Legal Receptionist Date/Time: 07/23/2010 04:34 [place] MRI CERVICAL SPINE W/O CONTRAST Unsigned Transcriptions are preliminary reports MRI CERVICAL SPINE W/O CONTRAST represent a Medical or Legal Document MRI CERVICAL SPINE W/O CONTRAST MRI CERVICAL SPINE W/O CONTRAST [id number] COMPLET MRI CERVICAL SPINE W/O CONTRAST Spine Proc Reason: NECK PAIN W/RUE RADICULOPATHY MRI CERVICAL SPINE W/O CONTRAST MRI cervical spine MRI CERVICAL SPINE W/O CONTRAST Sagittal and axial T1 and T2- weighted images of th MRI CERVICAL SPINE W/O CONTRAST There is [...] Done Dental Inspection Reffered 11/07/2010 2:04 PM Advertising Sales Representative Consult Done 01/30/2011 12:00 AM Cholest Cry [...] AA 58 eGFR 48 eGFR AA* 58 01/16/2017 9:40 AM GLUCOSE 104.0 mg/dLSODIUM 144.0 [...] 40 eGFR AA* 48 BNP 385.0 pg/mL 03/07/2017 7:36 PM COLOR YELLOW APPEARANCE CLEAR SPEC GRAV <=1.005 pH 6.0 PROTEIN NEGATIVE GLUCOSE NEGATIVE mg/dLKETONE NEGATIVE BILIRUBIN NEGATIVE BLOOD NEGATIVE NITRITE NEGATIVE LEUK SCREEN NEGATIVE MICRO INDICATED? NOT INDICATED 03/08/2017 5:35 AM GLUCOSE POCT 266.0 mg/dL 03/08/2017 6:40 AM GLUCOSE 273.0 mg/dLSODIUM 139.0 mmol/LPOTASSIUM 4.0 mmol/LCHLORIDE 100.0 mmol/LCO2 29.0 mmol/LBUN 20.0 mg/dLCREATININE 1.10 mg/dLSGOT/AST 22.0 IU/LSGPT/ALT 13.0 IU/LALK PHOS 66.0 IU/LTOTAL PROTEIN 7.0 g/dLALBUMIN 3.30 g/dLTOTAL BILI 0.50 mg/dLCALCIUM 9.60 mg/dLAGE 76 GFR NonAA 48 GFR AA 58 eGFR 48 eGFR AA* 58 MAGNESIUM 2.0 mg/dLPHOSPHORUS 4.70 mg/dLWBC 5.9 RBC 4.15 HGB 11.20 g/dLHCT 37.80 %MCV 91.0 fLMCH 27.0 pgMCHC 29.60 g/dLRDW SD 57 RDW CV 17.90 %MPV 10.70 fLPLT 204 NRBC# 0.00 NRBC% 0.0 %NEUT 91.80 %%LYMP 5.70 %%MONO 2.0 %%EOS 0.0 %%BASO 0.20 %#NEUT 5.45 #LYMP 0.34 #MONO 0.12 #EOS 0.00 #BASO 0.01 SEGS 92 LYMPHS 7 MONOS 1 ANISO 1+ POLYCHROMASIA OCCASIONAL 03/17/2017 11:55 AM GLUCOSE 145.0 mg/dLSODIUM 142.0 [...] Not Entered 11/02/2017 11/02/2017 999 Influenza 08/06/2010 GoodRx Arjun. NOV Fluvirin > 12 Years [id number] Intramuscular Right Deltoid 08/06/2010 06/12/2009 999 Influenza 08/06/2011 [facility]uz[facility] [id number] Intramuscular Left Arm 08/06/2011 05/28/2011 141 History [...] with heart failure Mar 17 2017 11:01AM Payers Insurance Name Company Name Plan Name Plan Number Policy Number Policy Group Number Start Date Medicare RHC Medicare RHC [id number] N/A BCBS Bcbs [facility] [id number] N/A Medicare Part B Medicare Natan Ramoss [id number] Saturday, 2005 Medicare Part A Medicare - Lab/Xray [id number] N/A History of Encounters Visit Date Visit Type Provider 03/17/[address] Tony Sue MD 02/26/[address] Tony Sue MD 02/12/[address] Tony Sue MD 02/05/[address] Tony Sue MD 02/04/[address] Tony Sue MD 01/13/[address] Tony Sue MD 12/19/2016 Hospital Madonna Bailey MD 12/18/2016 [facility] Javier Carreno MD 12/04/[address] Tony Sue MD 11/06/2014 Office visit Yamilet VALLES 10/03/2014 Office visit Yamilet VALLES 09/04/2014 Office visit Yamilet VALLES 06/12/2014 Office visit Yamilet VALLES 12/12/2013 Office visit Yamilet VALLES 05/25/2013 Office visit Herson Ly MD 12/20/2012 Office visit Herson Ly MD 06/16/2012 Office visit Herson Ly MD 01/20/2012 Hospital Madonna Bailey MD 01/20/2012 Office visit Lemuel Rivera MD 12/17/2011 Office visit Herson Ly MD 11/25/2011 Office visit Lemuel Rivera MD 08/06/2011 Office visit Lemuel Rivera MD 06/16/2011 Office visit Herson Ly MD 06/12/2011 Hospital Madonna Bailey MD [...]
--- OUTSIDE RECORDS SUMMARY | 2019-05-12 11:54 | XMS REPORT ---
Author Author Tony Sue [facility] Address [address] [place], [place] [address] Care Team Providers Care Residential Framing Carpenter Name Role Phone Tony Sue PCP Tony [...] (5 mg) by oral route once daily Synthroid 125 mcg oral tablet 02/05/2017 04/06/2017 take 1 tablet (125 mcg) by oral route once daily for 30 days simvastatin 80 mg oral tablet 02/05/2017 04/06/2017 TAKE 1 TABLET BY MOUTH IN THE EVENING potassium chloride 10 mEq oral tablet extended release 02/05/2017 04/06/2017 1 tab daily for 30 days Lasix 20 mg oral tablet 02/12/2017 03/14/2017 take 3 tablets by oral route 2 times a day for 30 days Name Start Date Expiration [...] HC BMI BSA BMI Percentile O2 Sat(%) 02/12/2017 11:42:00 AM 136 mmHg 76 mmHg [...] F 289.25 lbs 66 in 46.6857 kg/m 2.47 m2 91 % 02/06/2011 2:25:00 PM 100 mmHg 60 mmHg 75 bpm 18 rpm 98.4 F 293.375 lbs 66 in 47.35 kg/m2 2.4893 m 97 % 01/20/2011 1:04:00 PM 162 mmHg 74 mmHg 80 bpm 16 rpm 97.9 F 291 lbs 11/07/2010 1:57:00 PM 130 mmHg 70 mmHg 87 bpm 20 rpm 98 F 290.125 lbs 66 in 46.83 kg/m2 2.4755 m 93 % 09/19/2010 8:51:00 AM 152 mmHg 76 mmHg 88 bpm 16 rpm 98 F 292.25 lbs 08/20/2010 8:56:00 AM 128 mmHg 76 mmHg 84 bpm 18 rpm 97.4 F 292 lbs 08/07/2010 6:37:00 PM 158 mmHg 84 mmHg 84 bpm 18 rpm 97.2 F 293 lbs 66 in 47.291 kg/m 2.49 m2 94 % 08/06/2010 2:54:00 PM 140 mmHg 80 mmHg 78 bpm 20 rpm 97.4 F 293 lbs 66 in 47.29 kg/m2 2.4877 m 95 % 07/05/2010 8:13:00 AM 152 mmHg 84 mmHg 84 bpm 18 rpm 97.3 F 290.25 lbs 04/30/2010 1:44:00 PM 160 mmHg 70 mmHg 76 bpm 20 rpm 97.8 F 288.125 lbs 66 in 46.50 kg/m2 2.467 m 97 % 01/28/2010 3:00:00 PM 130 mmHg 78 mmHg 70 bpm 18 rpm 97.7 F 285.25 lbs 66 in 46.0401 kg/m 2.45 m2 96 % 12/07/2009 1:47:00 PM 150 mmHg 80 mmHg 82 bpm 18 rpm 97.4 F 286.375 lbs 66 in 46.22 kg/m2 2.4595 m 95 % 11/21/2009 9:18:00 AM 146 mmHg 66 mmHg 80 bpm 18 rpm 97.2 F 289.25 lbs 11/06/2009 3:45:00 PM 140 mmHg 80 mmHg 85 bpm 20 rpm 97.4 F 288.125 lbs 66 in 46.50 kg/m2 2.467 m 94 % 10/23/2009 10:20:00 AM 132 mmHg 74 mmHg 72 bpm 18 rpm 97 F 291.125 lbs 97 % Social History Name Description Comments Tobacco Former smoker Denies illicit substance abuse 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#[id number] (Terry) Reviewed 09/04/2014 12:00 AM X-RAY EXAM [...] 2:39 PM MRI CERVICAL SPINE W/O CONTRAST [facility] MRI CERVICAL SPINE W/O CONTRAST [place], [place] [address] MRI CERVICAL SPINE W/O CONTRAST Diagnostic Imaging Report MRI CERVICAL SPINE W/O CONTRAST Name: BAKERROMY MRI CERVICAL SPINE W/O CONTRAST Patient#: [id number] Room MRI CERVICAL SPINE W/O CONTRAST Stay [...] Family Physician: MRI CERVICAL SPINE W/O CONTRAST Welder Plastic Date/Time: 07/23/2010 04:34 [place] MRI CERVICAL SPINE W/O CONTRAST Unsigned Transcriptions are preliminary reports MRI CERVICAL SPINE W/O CONTRAST represent a Medical or Legal Document MRI CERVICAL SPINE W/O CONTRAST MRI CERVICAL SPINE W/O CONTRAST [id number] COMPLET MRI CERVICAL SPINE W/O CONTRAST Spine [...] Done Dental Inspection Reffered 11/07/2010 2:04 PM Chief Clinical Officer Consult Done 01/30/2011 12:00 AM Cholest Cry [...] 13.30 g/dLHCT 43.50 %MCV 91.0 fLMCH 27.90 pgHC 30.60 g/dLRDW SD 51 RDW CV 15.20 [...] 4.58 HGB 12.80 g/dLHCT 40.60 %MCV 89.0 [facility] 27.90 [facility] 31.50 g/dLRDW SD 48 RDW CV 14.90 [...] 40 eGFR AA* 48 BNP 385.0 pg/mL History Of Immunizations Name Date Admin Mfg Name Mfg Code Trade Name Lot# Route Inj Vis Given Vis Pub CVX Influenza 09/04/2008 Not Entered NE Not Entered Not Entered Not Entered 11/02/2016 11/02/2016 999 Influenza 08/06/2010 [employer]. NOV Fluvirin > 12 Years [id number] Intramuscular Right Deltoid 08/06/2010 06/12/2009 999 Influenza 08/06/2011 sanofi pasteur PMC Fluzone [id number] Intramuscular Left Arm 08/06/2011 05/28/2011 141 History [...] 2011 9:28AM Lumbar degenerative disc disease Feb 15 2011 1:09PM Lumbar spinal stenosis Fe2011 1:09PM Cervicalgia Dec 15 2011 1:09PM Carpal Tunnel Syndrome Feb 15 2011 1:09PM Preoperative Examination Jan 20 2012 9:12AM Lumbar degenerative disc disease Jun 16 2012 1:03PM Lumbar spinal stenosis Jun 16 2012 1:03PM Cervicalgia Jun 16 2012 1:03PM Carpal Tunnel Syndrome Jun 16 2012 1:03PM Lumbar degenerative disc disease Feb 2012 1:16PM Lumbar spinal stenosis Fe 18 2012 1:16PM Cervicalgia Feb 18 2012 1:16PM Carpal Tunnel Syndrome Feb 18 2012 1:16PM Lumbar degenerative disc disease May 25 2013 3:57PM Lumbar spinal stenosis May 25 2013 3:57PM Cervicalgia May 25 2013 3:57PM Carpal Tunnel Syndrome May 25 2013 3:57PM Lumbar degenerative disc disease Feb 2013 1:51PM Lumbar spinal stenosis Feb 2013 1:51PM Cervicalgia Feb 10 2013 1:51PM [...] with heart failure Feb 12 2017 11:50AM Payers Insurance Name Company Name Plan Name Plan Number Policy Number Policy Group Number Start Date Medicare Part B Medicare Of [place] [id number] Saturday, 2005 BCBS [facility] [id number] N/A Medicare RHC Medicare RHC [id number] N/A Medicare Part A Medicare - Lab/Xray [id number] N/A History of Encounters Visit Date Visit Type Provider 02/12/[address] Tony Sue MD 02/05/[address] Tony Sue MD 02/04/[address] Tony Sue MD 01/13/[address] Tony Sue MD 12/18/2016 [facility] Javier Carreno MD 12/04/[address] Tony Sue MD 11/06/2014 Office visit Yamilet VALLES 10/03/2014 Office visit Yamilet VALLES 09/04/2014 Office visit Yamilet M. Khang [...]
--- OUTSIDE RECORDS SUMMARY | 2019-05-12 11:55 | XMS REPORT ---
Author Author Tony Sue [facility] Address [address] [place], [place] [id number] Care Team Providers Care Music Publicist Name Role Phone Tony Sue PCP Tony [...] per day Neurontin 300 mg oral capsule take 1 capsule (300 mg) by oral route 3 times per day Actos 15 mg oral tablet take 1 tablet (15 mg) by oral route once daily Nystop 100,000 unit/gram topical powder apply to the affected area(s) by topical route 3 times per day PRN carvedilol 3.125 mg oral tablet 12/04/2016 06/02/2017 take 1 tablet (3.125 mg) by oral route 2 times per day with food for 30 days Name Start Date Expiration [...] oral route once daily for 30 days Problem List Description Status Onset Allergic rhinitis [...] HC BMI BSA BMI Percentile O2 Sat(%) 12/04/2016 8:22:00 AM 146 mmHg 78 mmHg [...] Reviewed 01/20/2012 12:00 AM ELECTROCARDIOGRAM COMPLETE Reviewed 04/30/2010 12:00 AM COMPREHEN METABOLIC PANEL [...] 12:00 AM Kenalog 40 Mg Im-[facility]#[id number] (Terry) Reviewed 09/04/2014 12:00 AM X-RAY EXAM [...] 2:39 PM MRI CERVICAL SPINE W/O CONTRAST [facility] MRI CERVICAL SPINE W/O CONTRAST [place], [place] [address] MRI CERVICAL SPINE W/O CONTRAST Diagnostic Imaging Report MRI CERVICAL SPINE W/O CONTRAST Name: ROMY BAKER MRI CERVICAL SPINE W/O CONTRAST Patient#: [id number] Room MRI CERVICAL SPINE W/O CONTRAST Stay [...] Family Physician: MRI CERVICAL SPINE W/O CONTRAST Unix Administrator Date/Time: 07/23/2010 04:34 [place] MRI CERVICAL SPINE W/O CONTRAST Unsigned Transcriptions are preliminary reports MRI CERVICAL SPINE W/O CONTRAST represent a Medical or Legal Document MRI CERVICAL SPINE W/O CONTRAST MRI CERVICAL SPINE W/O CONTRAST [id number] COMPLET MRI CERVICAL SPINE W/O CONTRAST Spine [...] Done Dental Inspection Reffered 11/07/2010 2:04 PM Office Machines Wirer Consult Done 01/30/2011 12:00 AM Cholest Cry [...] 99 eGFR >60 mL/min/1.73 m2eGFR AA* >60 History Of Immunizations Name Date Admin Mfg Name Mfg Code Trade Name Lot# Route Inj Vis Given Vis Pub CVX Influenza 09/04/2008 Not Entered NE Not Entered Not Entered Not Entered 11/02/2016 11/02/2016 999 Influenza 08/06/2010 [employer] Arjun. NOV Fluvirin > 12 Years [id number] Intramuscular Right Deltoid 08/06/2010 06/12/2009 999 Influenza 08/06/2011 [facility] Fluzone [id number] Intramuscular Left Arm 08/06/2011 05/28/2011 141 History [...] 2016 8:35AM Lymphedema Dec 04 2016 8:35AM Payers Insurance Name Company Name Plan Name Plan Number Policy Number Policy Group Number Start Date Medicare [facility] Medicare [facility] [id number] N/A [facility] [id number] N/A Medicare Part B Medicare Of [place] [id number] Saturday, 2005 Medicare Part A Medicare - Lab/Xray [id number] N/A History of Encounters Visit Date Visit Type Provider 12/04/[address] Tony Sue MD 11/06/2014 Office visit Yamilet VALLES 10/03/2014 Office visit Yamilet VALLES 09/04/2014 Office visit Yamilet VALLES 06/12/2014 Office visit Yamilet VALLES 12/12/2013 Office visit Yamilet VALLES 05/25/2013 Office visit Herson Ly MD 12/20/2012 Office visit Herson Ly MD 06/16/2012 Office visit Herson yL MD 01/20/2012 Hospital Madonna Bailey MD 01/20/2012 [...]
[2019-05-12 11:56] LABS: INR 1.1 (0.8-1.4)
--- OUTSIDE RECORDS SUMMARY | 2019-05-12 11:57 | XMS REPORT ---
Author Author Tony Sue Organization [facility] Address [address] [place], [place] [address] Care Team Providers Care Distribution Center Associate Name Role Phone Tony Sue PCP Tony Sue PreferredProvider Allergies and Adverse Reactions Name Reaction Notes SULFA (SULFONAMIDES) IV DYE, IODINE CONTAINING Wellbutrin Plan of Treatment Planned Activity Comments Planned Date Planned Time Plan/Goal CMP 02/04/2017 12:00 AM BNP 02/04/2017 12:00 AM Chest PA and Lateral - Main 02/04/2017 12:00 AM CBC W/ AUTO DIFF (RFLX MAN DIFF IF IND). 02/04/2017 12:00 AM EKG. 02/04/2017 12:00 AM Medications Active Name [...] HC BMI BSA BMI Percentile O2 Sat(%) 02/04/2017 11:24:00 AM 140 mmHg 80 mmHg [...] F 284 lbs 64 in 48.75 kg/m2 2.4118 m 05/25/2013 3:55:00 PM 144 mmHg 92 mmHg 70 bpm 16 rpm 97.6 F 286 lbs 63 in 50.6621 kg/m 2.40 m2 12/20/2012 1:13:00 PM 144 mmHg 92 mmHg 84 bpm 16 rpm 98 F 282 lbs 63 in 49.95 kg/m2 2.3845 m 06/16/2012 12:54:00 PM 142 mmHg 80 mmHg 84 bpm 16 rpm 97.3 F 284 lbs 63 in 50.3078 kg/m 2.39 m2 01/20/2012 9:10:00 AM 125 mmHg 68 mmHg 75 bpm 98.3 F 287.25 lbs 64 in 49.31 kg/m2 2.4256 m 93 % 12/17/2011 1:07:00 PM 144 mmHg 94 mmHg 82 bpm 16 rpm 97.6 F 294 lbs 64 in 50.4645 kg/m 2.45 m2 11/25/2011 9:27:00 AM 128 mmHg 78 mmHg 127 bpm 98.2 F 295.375 lbs 92 % 08/06/2011 9:58:00 AM 130 mmHg 68 mmHg 100 bpm 97.2 F 295 lbs 94 % 06/16/2011 1:04:00 PM 154 mmHg 76 mmHg 72 bpm 16 rpm 98.6 F 295 lbs 63.5 in 51.44 kg/m2 2.4485 m 06/12/2011 8:45:00 AM 118 mmHg 62 mmHg 92 bpm 20 rpm 97.8 F 290.375 lbs 63.5 in 50.6303 kg/m 2.43 m2 94 % 05/08/2011 2:01:00 PM [...] Former smoker 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#[id number] (Terry) Reviewed 09/04/2014 12:00 AM X-RAY EXAM [...] 2:39 PM MRI CERVICAL SPINE W/O CONTRAST [facility] MRI CERVICAL SPINE W/O CONTRAST [place], [place] [address] MRI CERVICAL SPINE W/O CONTRAST Diagnostic Imaging Report MRI CERVICAL SPINE W/O CONTRAST Name: ROMY BAKER MRI CERVICAL SPINE W/O CONTRAST Patient#: [id number] Room MRI CERVICAL SPINE W/O CONTRAST Stay [...] Family Physician: MRI CERVICAL SPINE W/O CONTRAST Radiator Core Tester Date/Time: 07/23/2010 04:34 [place] MRI CERVICAL SPINE W/O CONTRAST Unsigned Transcriptions are preliminary reports MRI CERVICAL SPINE W/O CONTRAST represent a Medical or Legal Document MRI CERVICAL SPINE W/O CONTRAST MRI CERVICAL SPINE W/O CONTRAST [id number] COMPLET MRI CERVICAL SPINE W/O CONTRAST Spine [...] Done Dental Inspection Reffered 11/07/2010 2:04 PM Ict Support And Test Engineers Consult Done 01/30/2011 12:00 AM Cholest Cry [...] Not Entered 11/02/2016 11/02/2016 999 Influenza 08/06/2010 [employer]. NOV Fluvirin > 12 Years [id number] Intramuscular Right Deltoid 08/06/2010 06/12/2009 999 Influenza 08/06/2011 sanofi pasteur PMC Fluzone [id number] Intramuscular Left Arm 08/06/2011 05/28/2011 141 History [...] Feb 15 2011 1:09PM Lumbar spinal stenosis Fe 15 2011 1:09PM Cervicalgia Feb 15 2011 1:09PM Carpal Tunnel Syndrome Feb 15 2011 1:09PM Preoperative Examination Jan 20 2012 9:12AM Lumbar degenerative disc disease Jun 16 2012 1:03PM Lumbar spinal stenosis Jun 16 2012 1:03PM Cervicalgia Jun 16 2012 1:03PM Carpal Tunnel Syndrome Jun 16 2012 1:03PM Lumbar degenerative disc disease Dec 20 2012 1:16PM Lumbar spinal stenosis Feb 18 [...] (congestive) heart failure Feb 04 2017 11:34AM Payers Insurance Name Company Name Plan Name Plan Number Policy Number Policy Group Number Start Date Medicare Part B [place] [id number] Saturday, [facility] [id number] N/A Medicare RHC Medicare RHC [id number] N/A Medicare Part A Medicare - Lab/Xray [id number] N/A History of Encounters Visit Date Visit Type Provider 02/04/[address] Tony Sue MD 01/13/[address] Tony Sue MD 12/18/2016 [facility] Javier Carreno MD 12/04/2016 Office visit [...] Procedures Herson Ly MD 02/06/2011 Office visit Jlail Terry DO 01/20/2011 Office visit Herson Ly [...] visit Jalil Terry DO 09/12/2009 Office visit Hersno Ly MD 07/25/2009 Office visit Jalil Terry DO 07/17/2009 Office visit Herson Ly MD 06/26/2009 Procedures Herson Ly MD
--- OUTSIDE RECORDS SUMMARY | 2019-05-12 12:00 | XMS REPORT ---
Author Tony Turpin [facility] Address [address] [place], [place] [address] Care Team Providers Care Production Sorter Name Role Phone Tony Sue PCP [...] Kenalog 40 Mg Im-[facility]#[id number] (Terry) Reviewed 09/04/2014 12:00 AM X-RAY EXAM [...] Not Entered 11/02/2017 11/02/2017 999 Influenza 08/06/2010 [employer] Arjun. NOV Fluvirin > 12 Years [id number] Intramuscular Right Deltoid 08/06/2010 06/12/2009 999 Influenza 08/06/2011 [facility] PMC Fluzone [id number] Intramuscular Left Arm 08/06/2011 05/28/2011 141 History [...] Number Start Date Medicare RHC Medicare RHC [id number] N/[facility] [id number] N/A Medicare Part B Medicare Of [place] [id number] Saturday, 2005 Medicare Part A Medicare - Lab/Xray [id number] N/A History of Encounters Visit Date Visit [...] MD 12/19/2016 Hospital Madonna Bailey MD 12/18/2016 [facility] Javier Carreno MD 12/04/2016 Office visit [...]
--- OUTSIDE RECORDS SUMMARY | 2019-05-12 12:02 | XMS REPORT ---
Author Tony Turpin Organization [facility] Address [address] [place], [place] [address] Care Team Providers Care Drum Dyeing Machine Operator Name Role Phone Tony Sue PCP Tony Sue PreferredProvider Allergies and Adverse Reactions Name Reaction Notes SULFA (SULFONAMIDES) IV DYE, IODINE CONTAINING Wellbutrin Plan of Treatment Planned Activity Comments Planned Date Planned Time Plan/Goal CT HEAD W/O CONTRAST 02/11/2018 12:00 AM Medications Active Name Start Date Estimated Completion Date SIG Comments Aspir-81 81 mg oral tablet,delayed release (DR/EC) take 1 tablet (81 mg) by oral route once daily gabapentin 300 mg oral capsule 04/17/2017 take 1 capsule (300 mg) by oral route 3 times per day for 30 days Synthroid 125 mcg oral tablet 09/14/2017 03/13/2018 take 1 tablet (125 mcg) by oral route once daily for 30 days levothyroxine 125 mcg oral tablet 12/21/2017 04/04/2018 TAKE 1 TABLET BY MOUTH EVERY MORNING ipratropium-albuterol 0.5 mg-3 mg(2.5 mg base)/3 mL [...] 08/09/2018 INJECT 26 UNITS SUBCUTANEOUS TWICE DAILY metformin 500 mg oral tablet 12/24/2017 03/30/2018 TAKE 1 TABLET BY MOUTH TWICE DAILY WITH MEALS gabapentin 300 mg oral capsule 01/08/2018 02/25/2018 TAKE 1 CAPSULE BY MOUTH THREE TIMES DAILY mirtazapine 30 mg oral tablet 01/13/2018 05/13/2018 TAKE ONE AND ONE-HALF TABLET BY MOUTH EVERY NIGHT AT BEDTIME furosemide 20 mg oral tablet 01/13/2018 04/07/2018 TAKE 3 TABLETS BY MOUTH DAILY Klor-Con Sprinkle 10 mEq oral capsule, extended release 02/04/2018 TAKE 2 CAPSULES BY MOUTH DAILY iron 325 mg (65 mg iron) oral tablet 02/08/2018 take 1 tablet (325 mg) by oral route once daily Zocor 40 mg oral tablet take 1 tablet (40 mg) by oral route once daily in the evening Name Start Date Expiration Date SIG Comments [...] 3 times per day for 30 days Lasix 40 mg oral tablet 03/17/2017 12/12/2017 take 2 tablets (80 mg) by oral route 2 times per day for 90 days Discontinued Name Start Date Discontinued Date [...] HC BMI BSA BMI Percentile O2 Sat(%) 02/11/2018 2:54:00 PM 110 mmHg 78 mmHg [...] AM MRI LUMBAR SPINE W/O DYE Reviewed 07/31/2010 12:00 AM COMPREHEN [...] Reviewed 03/24/2011 12:00 AM Kenalog 40 Mg Im-[facility]#[id number] (Harrison) Reviewed 09/04/2014 12:00 AM X-RAY EXAM [...] Done Dental Inspection Reffered 11/07/2010 2:04 PM Final Touch Up Painter Consult Done 01/30/2011 12:00 AM Cholest Cry [...] Not Entered 11/02/2017 11/02/2017 999 Influenza 08/06/2010 [employer]. NOV Fluvirin > 12 Years [id number] Intramuscular Right Deltoid 08/06/2010 06/12/2009 999 Influenza 08/06/2011 sanofi pasteur PMC FLUZONE [id number] Intramuscular Left Arm 08/06/2011 05/28/2011 141 History [...] chronic blood loss Feb 10 2018 1:47PM Payers Insurance Name Company Name Plan Name Plan Number Policy Number Policy Group Number Start Date Medicare RHC Medicare RHC [id number] N/A [facility] [id number] N/A Medicare Part B Medicare Of [place] [id number] Saturday, 2005 Medicare Part A Medicare - Lab/Xray [id number] N/A History of Encounters Visit Date Visit Type Provider 02/11/[address] Tony Sue MD 02/10/2018 Office visit Jalil Mendez MD 11/23/2017 Hospital Madonna Bailey MD 09/23/2017 [...] MD 12/19/2016 Hospital Madonna Bailey MD 12/18/2016 [facility] Javier Carreno MD 12/04/[address] Tony Sue MD 11/06/2014 Office visit Yamilet VALLES 10/03/2014 Office visit Yamilet VALLES 09/04/2014 Office visit Yamilet VALLES 06/12/2014 Office visit Yamilet VALLES 12/12/2013 Office visit Ymailet VALLES 05/25/2013 Office visit Jovon Ly MD 12/20/2012 Office visit Jovon Ly MD 06/16/2012 Office visit Jovon Ly MD 01/20/2012 [facility] Madonna Bailey MD 01/20/2012 Office visit Lemuel [...]
--- OUTSIDE RECORDS SUMMARY | 2019-05-12 12:04 | XMS REPORT ---
Author Tony Turpin [facility] Address [address] [place], [place] [address] Care Team Providers Care Forest Biometrics Professor Name Role Phone Tony Sue PCP Tony [...] by oral route 3 times per day carvedilol 3.125 mg oral tablet 12/04/2016 06/02/2017 take 1 tablet (3.125 mg) by oral route 2 times per day with food for 30 days gabapentin 300 mg oral capsule 01/08/2017 04/08/2017 take 1 capsule (300 mg) by oral route 3 times per day for 30 days amiodarone 200 mg oral tablet take 2 tablets (400 mg) by oral route once daily in morning Synthroid 125 mcg oral tablet 02/05/2017 04/06/2017 [...] 2 times a day for 30 days Xeloda 500 mg oral tablet take 3 tablets by oral route 2 times a day amlodipine 5 mg oral tablet 02/26/2017 02/21/2018 take 1.5 tablets by oral route daily for 90 days Name Start Date [...] HC BMI BSA BMI Percentile O2 Sat(%) 02/26/2017 11:11:00 AM 136 mmHg 72 mmHg [...] 12:00 AM Kenalog 40 Mg Im-[facility]#[id number] (Terry) Reviewed 09/04/2014 12:00 AM X-RAY EXAM [...] AM Foot Exam-Diabetic Done 01/17/2010 12:00 AM Cecy Boyd Ql IR 144.0 %LDLc SerPl-mCnc 78.0 mg/dLGlucose [...] PM Foot Exam-Diabetic Done 04/22/2010 12:00 AM Cecy Gilman Stone Ql IR 157.0 %LDLc SerPl-mCnc 79.0 [...] 2:39 PM MRI CERVICAL SPINE W/O CONTRAST [facility] MRI CERVICAL SPINE W/O CONTRAST [place], [place] [address] MRI CERVICAL SPINE W/O CONTRAST Diagnostic Imaging Report MRI CERVICAL SPINE W/O CONTRAST Name: TOÑITO ROMY Susana MRI CERVICAL SPINE W/O CONTRAST Patient#: [id number] Room MRI CERVICAL SPINE W/O CONTRAST Stay [...] Family Physician: MRI CERVICAL SPINE W/O CONTRAST Police Detention Attendant Date/Time: 07/23/2010 04:34 [place] MRI CERVICAL SPINE W/O CONTRAST Unsigned Transcriptions are preliminary reports MRI CERVICAL SPINE W/O CONTRAST represent a Medical or Legal Document MRI CERVICAL SPINE W/O CONTRAST MRI CERVICAL SPINE W/O CONTRAST [id number] COMPLET MRI CERVICAL SPINE W/O CONTRAST Spine [...] Done Dental Inspection Reffered 11/07/2010 2:04 PM Certified Phlebotomy Technician Consult Done 01/30/2011 12:00 AM Cholest [...] Not Entered 11/02/2017 11/02/2017 999 Influenza 08/06/2010 [employer]. NOV Fluvirin > 12 Years [id number] Intramuscular Right Deltoid 08/06/2010 06/12/2009 999 Influenza 08/06/2011 [facility] PMC Fluzone [id number] Intramuscular Left Arm 08/06/2011 05/28/2011 141 History [...] Lumbar spinal stenosis Feb 2013 1:51PM Cervicalgia Dec 12 2013 1:51PM [...] with heart failure Feb 26 2017 11:18AM Payers Insurance Name Company Name Plan Name Plan Number Policy Number Policy Group Number Start Date Medicare [facility] Medicare [facility] [id number] N/A [facility] [id number] N/A Medicare Part B Medicare Of [place] [id number] Saturday, 2005 Medicare Part A Medicare - Lab/Xray [id number] N/A History of Encounters Visit Date Visit Type Provider 02/26/[address] Tony Sue MD 02/12/[address] Tony Sue MD 02/05/[address] Tony Sue MD 02/04/[address] Tony Sue MD 01/13/[address] Tony Sue MD 12/18/2016 [facility] Javier Carreno MD 12/04/[address] Tony Sue MD 11/06/2014 Office visit Yamilet VALLES 10/03/2014 Office visit Yamilet VALLES 09/04/2014 Office visit Yamilet VALLES 06/12/2014 Office visit Yamilet VALLES 12/12/2013 Office visit Yamilet VALLES 05/25/2013 Office visit Herson Ly MD 12/20/2012 Office visit Herson Ly MD 06/16/2012 Office visit Herson Ly MD 01/20/2012 [facility] Madonna Bailey MD 01/20/2012 Office visit Lemuel Rivera MD 12/17/2011 Office visit Herson Ly MD 11/25/2011 Office visit Lemuel Rivera MD 08/06/2011 Office visit Lemuel Rivera MD 06/16/2011 Office visit Herson Ly MD 06/12/2011 [facility] Madonna Bailey MD 06/12/2011 Office visit Lemuel [...]
--- OUTSIDE RECORDS SUMMARY | 2019-05-12 12:06 | XMS REPORT ---
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#[id number] (Terry) Reviewed 09/04/2014 12:00 AM X-RAY EXAM [...] Not Entered 11/02/2017 11/02/2017 999 Influenza 08/06/2010 [employer]. NOV Fluvirin > 12 Years [id number] Intramuscular Right Deltoid 08/06/2010 06/12/2009 999 Influenza 08/06/2011 [facility] PMC Fluzone [id number] Intramuscular Left Arm 08/06/2011 05/28/2011 141 History [...] Date Medicare [facility] Medicare RH [id number] N/A [facility] [id number] N/A Medicare Part B Medicare Of [place] [id number] Saturday, 2005 Medicare Part A Medicare - Lab/Xray [id number] N/A History of Encounters Visit Date Visit Type Provider 08/28/[address] Tony Sue MD 08/12/[address] Tony Sue MD 05/28/[address] Tony Sue MD 03/17/[address] Tony Sue MD 03/07/2017 [facility] Madonna Bailey MD 03/07/2017 [facility] James Quevedo MD 02/26/2017 Office visit [...]
--- OUTSIDE RECORDS SUMMARY | 2019-05-12 12:08 | XMS REPORT ---
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 NOV Fluvirin > 12 Years [id number] Intramuscular Right Deltoid 08/06/2010 06/12/2009 999 Influenza 08/06/2011 [employer] PMC FLUZONE [id number] Intramuscular Left Arm 08/06/2011 05/28/2011 141 History [...] major depressive disorder Feb 11 2018 2:59PM Payers Insurance Name Company Name Plan Name Plan Number Policy Number Policy Group Number Start Date Medicare RHC Medicare RHC [id number] N/A [facility] [id number] N/A Medicare Part B Medicare Of [place] [id number] Saturday, 2005 Medicare Part A Medicare - Lab/Xray [id number] N/A History of Encounters Visit Date Visit [...]
--- OUTSIDE RECORDS SUMMARY | 2019-05-12 12:10 | XMS REPORT ---
Author Tony Turpin [facility] Address [address] [place], [place] [id number] Care Team Providers Care Team Automobile Assembler Name Role Phone Tony Sue PCP [...] per day with food for 30 days amlodipine 5 mg oral tablet 02/26/2017 02/21/2018 [...] oral route once daily for 30 days gabapentin 300 mg oral capsule 01/08/2017 04/08/2017 take 1 capsule (300 mg) by oral route 3 times per day for 30 days simvastatin 80 mg oral tablet 02/05/2017 04/06/2017 TAKE 1 TABLET BY MOUTH IN THE EVENING Discontinued Name Start Date Discontinued Date SIG [...] HC BMI BSA BMI Percentile O2 Sat(%) 05/28/2017 10:15:00 AM 128 mmHg 68 mmHg [...] Former smoker 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 Alcohol Use 2-3oz wine [...] 03/23/2017 12:00 AM COMPREHEN METABOLIC PANEL Reviewed 04/30/2010 [...] Reviewed 03/24/2011 12:00 AM Kenalog 40 Mg Im-[facility]#[id number] (Terry) Reviewed 09/04/2014 12:00 AM X-RAY EXAM [...] 2:39 PM MRI CERVICAL SPINE W/O CONTRAST [facility] MRI CERVICAL SPINE W/O CONTRAST [place], [place] [address] MRI CERVICAL SPINE W/O CONTRAST Diagnostic Imaging Report MRI CERVICAL SPINE W/O CONTRAST Name: BAKERAUBRIEROMY Susana MRI CERVICAL SPINE W/O CONTRAST Patient#: [id number] Room MRI CERVICAL SPINE W/O CONTRAST Stay [...] Family Physician: MRI CERVICAL SPINE W/O CONTRAST Nutrition Internship Date/Time: 07/23/2010 04:34 [place] MRI CERVICAL SPINE W/O CONTRAST Unsigned Transcriptions are preliminary reports MRI CERVICAL SPINE W/O CONTRAST represent a Medical or Legal Document MRI CERVICAL SPINE W/O CONTRAST MRI CERVICAL SPINE W/O CONTRAST [id number] COMPLET MRI CERVICAL SPINE W/O CONTRAST Spine [...] Done Dental Inspection Reffered 11/07/2010 2:04 PM Cheese Weigher Consult Done 01/30/2011 12:00 AM Cholest Cry [...] Not Entered 11/02/2017 11/02/2017 999 Influenza 08/06/2010 [employer] Arjun. NOV Fluvirin > 12 Years [id number] Intramuscular Right Deltoid 08/06/2010 06/12/2009 999 Influenza 08/06/2011 [facility] Fluzone [id number] Intramuscular Left Arm 08/06/2011 05/28/2011 141 History [...] (congestive) heart failure May 28 2017 10:20AM Payers Insurance Name Company Name Plan Name Plan Number Policy Number Policy Group Number Start Date Medicare RH Medicare RHC [id number] N/A BCBS [facility] [id number] N/A Medicare Part B Medicare Of [place] [id number] Saturday, 2005 Medicare Part A Medicare - Lab/Xray [id number] N/A History of Encounters Visit Date Visit Type Provider 05/28/[address] Tony Sue MD 03/17/[address] Tony Sue MD 03/07/2017 Hospital Madonna Bailey MD 03/07/2017 [facility] James Quevedo MD 02/26/2017 Office visit [...] Lemuel Rivera MD 06/16/2011 Office visit Herson yL MD 06/12/2011 [facility] Madonna Bailey MD 06/12/2011 [...]
--- OUTSIDE RECORDS SUMMARY | 2019-05-12 12:12 | XMS REPORT | Continuity of Care Document ---
Author Organization Unknown Address Unknown Allergies There is no data. Medications There is no data. Problems There is no data. Procedures There is no data. Results There is no data. Encounters ACCT No. Visit Date/Time Discharge Status Pt. Type Provider Facility Loc./Unit Complaint [id number] 03/04/2019 14:12:20 03/04/2019 23:59:59 [facility] Outpatient Tony Sue [id number] 12/28/2018 16:11:27 12/28/2018 23:59:59 [facility] Outpatient Adeline Ordoñez [id number] 12/25/2018 11:47:11 12/25/2018 23:59:59 [facility] Outpatient Madonna Bailey [id number] 12/03/2018 14:13:24 12/03/2018 23:59:59 C[facility] Outpatient Tony Sue [id number] 11/26/2018 09:18:16 11/26/2018 23:59:59 CLS Outpatient Tony Sue [id number] 11/09/2018 11:57:12 11/09/2018 23:59:59 C[facility] Outpatient Madonna Bailey [id number] 10/20/2018 11:36:51 10/20/2018 23:59:59 CLS Outpatient Tony Sue [id number] 08/27/2018 11:04:25 08/27/2018 23:59:59 CLS Outpatient Tony Sue [id number] 08/02/2018 16:59:23 08/02/2018 23:59:59 CLS Outpatient Madonna Bailey [id number] 07/28/2018 14:19:43 07/28/2018 23:59:59 CLS Outpatient Tony Sue [id number] 07/01/2018 16:36:31 07/01/2018 23:59:59 CLS Outpatient James Quevedo [id number] 03/15/2018 16:31:01 03/15/2018 23:59:59 CLS Outpatient Madonna Bailey [id number] 03/04/2018 16:25:46 03/04/2018 23:59:59 CLS Outpatient Madonna Bailey [id number] 02/11/2018 15:49:49 02/11/2018 23:59:59 CLS Outpatient Tony Sue [id number] 02/10/2018 14:36:22 02/10/2018 23:59:59 CLS Outpatient Jalil Mendez [id number] 12/10/2017 14:34:02 12/10/2017 23:59:59 CLS Outpatient Madonna Bailey [id number] 09/23/2017 12:00:45 09/23/2017 23:59:59 CLS Outpatient Tony Sue [id number] 08/28/2017 10:16:42 08/28/2017 23:59:59 CLS Outpatient Tony Sue [id number] 08/12/2017 12:03:54 08/12/2017 23:59:59 CLS Outpatient Tony Sue [id number] 05/01/2017 12:26:19 05/01/2017 23:59:59 CLS Outpatient Madonna Bailey [id number] 04/16/2017 13:45:33 04/16/2017 23:59:59 CLS Outpatient Madonna Bailey [id number] 03/31/2017 11:00:10 03/31/2017 23:59:59 CLS Outpatient James Quevedo [id number] 03/17/2017 11:54:18 03/17/2017 23:59:59 CLS Outpatient Tony Sue [id number] 03/05/2017 15:20:06 03/05/2017 23:59:59 CLS Outpatient Madonna Bailey Jose [id number] 02/26/2017 11:52:33 02/26/2017 23:59:59 CLS Outpatient Tony Sue [id number] 02/23/2017 16:35:48 02/23/2017 23:59:59 CLS Outpatient Tony Sue [id number] 02/05/2017 10:22:53 02/05/2017 23:59:59 CLS Outpatient Tony Sue [id number] 02/04/2017 12:25:28 02/04/2017 23:59:59 CLS Outpatient Tony Sue [id number] 01/13/2017 15:39:35 01/13/2017 23:59:59 CLS Outpatient Tony Sue [id number] 12/29/2016 11:39:09 12/29/2016 23:59:59 CLS Outpatient Wai Javier [id number] 12/04/2016 09:01:42 12/04/2016 23:59:59 CLS Outpatient Tony Sue [id number] 11/06/2014 11:49:15 11/06/2014 23:59:59 CLS Outpatient Yamilet Quiñonez [id number] 10/03/2014 13:54:17 10/03/2014 23:59:59 CLS Outpatient Yamilet Quiñonez [id number] 09/04/2014 14:06:41 09/04/2014 23:59:59 CLS Outpatient Yamilet Quiñonez [id number] 06/12/2014 15:04:05 06/12/2014 23:59:59 CLS Outpatient Yamilet Quiñonez [id number] 12/12/2013 14:36:52 12/12/2013 23:59:59 CLS Outpatient Yamilet Quiñonez [id number] 05/11/2019 15:54:31 [facility] Outpatient Tony Sue
--- OUTSIDE RECORDS SUMMARY | 2019-05-12 12:12 | XMS REPORT ---
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 02/04/2017 12:00 AM Medications Active Name Start Date Estimated Completion Date SIG Comments Lasix oral tablet 40 mg take 1 tablet (40 mg) by oral route once daily Humalog KwikPen 100 unit/mL subcutaneous insulin [...] 04/06/2017 1 tab daily for 30 days Name Start Date Expiration [...] HC BMI BSA BMI Percentile O2 Sat(%) 02/05/2017 9:37:00 AM 150 mmHg 78 mmHg [...] F 295 lbs 63.5 in 51.4367 kg/m 2.45 m2 06/12/2011 8:45:00 AM 118 mmHg 62 mmHg 92 bpm 20 rpm 97.8 F 290.375 lbs 63.5 in 50.63 kg/m2 2.4292 m 94 % 05/08/2011 2:01:00 PM 125 mmHg 82 mmHg 77 bpm 98.7 F 289.375 lbs 03/24/2011 2:57:00 PM 140 mmHg 78 mmHg 84 bpm 20 rpm 97.1 F 289.25 lbs 66 in 46.69 kg/m2 2.4718 m 91 % 02/06/2011 2:25:00 PM 100 mmHg 60 mmHg 75 bpm 18 rpm 98.4 F 293.375 lbs 66 in 47.3515 kg/m 2.49 m2 97 % 01/20/2011 1:04:00 PM 162 mmHg 74 mmHg 80 bpm 16 rpm 97.9 F 291 lbs 11/07/2010 1:57:00 PM 130 mmHg 70 mmHg 87 bpm 20 rpm 98 F 290.125 lbs 66 in 46.8269 kg/m 2.48 m2 93 % 09/19/2010 8:51:00 AM 152 mmHg 76 mmHg 88 bpm 16 rpm 98 F 292.25 lbs 08/20/2010 8:56:00 AM 128 mmHg 76 mmHg 84 bpm 18 rpm 97.4 F 292 lbs 08/07/2010 6:37:00 PM 158 mmHg 84 mmHg 84 bpm 18 rpm 97.2 F 293 lbs 66 in 47.29 kg/m2 2.4877 m 94 % 08/06/2010 2:54:00 PM 140 mmHg 80 mmHg 78 bpm 20 rpm 97.4 F 293 lbs 66 in 47.291 kg/m 2.49 m2 95 % 07/05/2010 8:13:00 AM 152 mmHg 84 mmHg 84 bpm 18 rpm 97.3 F 290.25 lbs 04/30/2010 1:44:00 PM 160 mmHg 70 mmHg 76 bpm 20 rpm 97.8 F 288.125 lbs 66 in 46.5041 kg/m 2.47 m2 97 % 01/28/2010 3:00:00 PM 130 mmHg 78 mmHg 70 bpm 18 rpm 97.7 F 285.25 lbs 66 in 46.04 kg/m2 2.4546 m 96 % 12/07/2009 1:47:00 PM 150 mmHg 80 mmHg 82 bpm 18 rpm 97.4 F 286.375 lbs 66 in 46.2217 kg/m 2.46 m2 95 % 11/21/2009 9:18:00 AM 146 mmHg 66 mmHg 80 bpm 18 rpm 97.2 F 289.25 lbs 11/06/2009 3:45:00 PM 140 mmHg 80 mmHg 85 bpm 20 rpm 97.4 F 288.125 lbs 66 in 46.5041 kg/m 2.47 m2 94 % 10/23/2009 10:20:00 AM 132 mmHg 74 mmHg 72 bpm 18 rpm 97 F 291.125 lbs 97 % Social History Name Description Comments Tobacco Former smoker 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 illicit substance 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 Alcohol Use 2-3oz wine [...] Reviewed 02/04/2017 12:00 AM COMPREHEN METABOLIC PANEL Returned 02/04/2017 12:00 AM ASSAY OF NATRIURETIC PEPTIDE Returned 02/04/2017 12:00 AM CHEST X-RAY 2VW FRONTAL&LATL Returned 02/04/2017 12:00 AM COMPLETE CBC W/AUTO DIFF WBC Returned 04/30/2010 12:00 AM COMPREHEN METABOLIC PANEL [...] Reviewed 03/24/2011 12:00 AM Kenalog 40 Mg Im-[facility]#[id number] (Terry) Reviewed 09/04/2014 12:00 AM X-RAY EXAM [...] 2:39 PM MRI CERVICAL SPINE W/O CONTRAST [facility] MRI CERVICAL SPINE W/O CONTRAST [place], [place] [address] MRI CERVICAL SPINE W/O CONTRAST Diagnostic Imaging Report MRI CERVICAL SPINE W/O CONTRAST Name: ROMY BAKER MRI CERVICAL SPINE W/O CONTRAST Patient#: [id number] Room MRI CERVICAL SPINE W/O CONTRAST Stay [...] Family Physician: MRI CERVICAL SPINE W/O CONTRAST Server Manager Date/Time: 07/23/2010 04:34 [place] MRI CERVICAL SPINE W/O CONTRAST Unsigned Transcriptions are preliminary reports MRI CERVICAL SPINE W/O CONTRAST represent a Medical or Legal Document MRI CERVICAL SPINE W/O CONTRAST MRI CERVICAL SPINE W/O CONTRAST [id number] COMPLET MRI CERVICAL SPINE W/O CONTRAST Spine [...] Done Dental Inspection Reffered 11/07/2010 2:04 PM Quality Control Associate Consult Done 01/30/2011 12:00 AM Cholest Cry [...] 48 eGFR AA* 58 BNP 583.0 pg/mL History Of Immunizations Name Date Admin Mfg Name Mfg Code Trade Name Lot# Route Inj Vis Given Vis Pub CVX Influenza 09/04/2008 Not Entered NE Not Entered Not Entered Not Entered 11/02/2016 11/02/2016 999 Influenza 08/06/2010 [employer]. NOV Fluvirin > 12 Years [id number] Intramuscular Right Deltoid 08/06/2010 06/12/2009 999 Influenza 08/06/2011 [facility] Fluzone [id number] Intramuscular Left Arm 08/06/2011 05/28/2011 141 History [...] Feb 15 2011 1:09PM Lumbar spinal stenosis Feb 2011 1:09PM Cervicalgia Feb 15 2011 1:09PM [...] Date Medicare Part B Medicare Of [place] [id number] Saturday, 2005 BCBS [employer] [facility] [id number] N/A Medicare RHC Medicare RHC [id number] N/A Medicare Part A Medicare - Lab/Xray [id number] N/A History of Encounters Visit Date Visit Type Provider 02/05/[address] Tony Sue MD 02/04/[address] Tony Sue MD 01/13/[address] Tony Sue MD 12/18/2016 [facility] Javier Carreno MD 12/04/[address] Tony Sue MD 11/06/2014 Office visit Yamilet VALLES 10/03/2014 Office visit Yamilet VALLES 09/04/2014 Office visit Yamilet VALLES 06/12/2014 Office visit Yamilet VALLES 12/12/2013 Office visit Yamilet VALLES 05/25/2013 Office visit Herson Ly MD 12/20/2012 Office visit Herson Ly MD 06/16/2012 Office visit Herson Ly MD 01/20/2012 [facility] Madonna Bailey MD 01/20/2012 Office visit Lemuel Rivera MD 12/17/2011 Office visit Herson Ly MD 11/25/2011 Office visit Lemuel Rivera MD 08/06/2011 Office visit Lemuel Rivera MD 06/16/2011 Office visit Herson Ly MD 06/12/2011 [facility] Madonna [...]
[2019-05-12] MEDS ORDERED: methylPREDNISolone 125 MG (Solu-MEDROL) VIAL ONE (12:17)
[2019-05-12] MEDS ORDERED: INSU100I32 SQ (12:20)
[2019-05-12] MEDS ORDERED: INSU100V SQ (12:20)
[2019-05-12] MEDS ORDERED: SEVE800T7 PO (12:20)
[2019-05-12] MEDS ORDERED: ONDA4TAB10 PO (12:20)
[2019-05-12] MEDS ORDERED: ACET-2840 PO (12:20)
[2019-05-12] MEDS ORDERED: MIDO10TA PO (12:20)
[2019-05-12] MEDS ORDERED: SODI50DR NS ×2 (12:20)
[2019-05-12] MEDS ORDERED: SODI14.12 (12:20)
[2019-05-12] MEDS ORDERED: LEVO125T6 PO (12:20)
[2019-05-12] MEDS ORDERED: HYDR-4226 PO (12:20)
[2019-05-12] MEDS ORDERED: CLOP75TA69 PO (12:20)
[2019-05-12] MEDS ORDERED: ASPI-999 PO (12:20)
[2019-05-12] MEDS ORDERED: FURO80TA3 PO (12:20)
[2019-05-12] MEDS ORDERED: SIMV20TA3 PO (12:20)
[2019-05-12] MEDS ORDERED: AMIO400T5 PO (12:20)
[2019-05-12] MEDS ORDERED: MIRT-47 PO (12:20)
[2019-05-12] MEDS ORDERED: CINA30TA2 PO (12:20)
[2019-05-12] MEDS ORDERED: ALBU0.63 IH (12:20)
[2019-05-12 12:22] LABS: ALBUMIN 3.1 GM/DL (3.2-4.5); BILIRUBIN,TOTAL 0.5 MG/DL (0.1-1.0); CALCIUM 8.5 MG/DL (8.5-10.1); CREATININE SERUM 4.9 MG/DL (0.60-1.30); TOTAL PROTEIN 7.2 GM/DL (6.4-8.2)
[2019-05-12] MEDS ORDERED: methylPREDNISolone 125 MG (Solu-MEDROL) VIAL IVP ONE (13:15)
[2019-05-12] MEDS ORDERED: diphenhydrAMINE 50 MG/ML INJ (BENADRYL) ONE (13:52)
[2019-05-12] MEDS ORDERED: MIDAZOLAM 5 MG/5 ML (VERSED) VIAL ONE (13:52)
[2019-05-12] MEDS ORDERED: fentaNYL INJECTION 100 MCG/2 ML AMP ONE (13:52)
[2019-05-12] MEDS ORDERED: HEParin 1000 UNIT/ML (10ML VIAL) FOR BOLUS ONE (15:54)
--- NOTE | 2019-05-12 16:57 | Cardiac Procedure Note-CS/ASA ---
Pre-Procedure Note Pre-Op Procedure Note H&P Reviewed The H&P was reviewed, patient examined and no changes noted. Date H&P Reviewed: May 12, 2019 Time H&P Reviewed: 12:00 Conscious Sedation Pre-Proced Time 12:00 ASA Score 3 For ASA 3 and 4: Consider anesthesia and medical clearance. Also, for patients with a history of failed moderate sedation consider anesthesia. Airway Lungs Heart ASA score ASA 1: a normal healthy patient ASA 2: a patient with a mild systemic disease (mid diabetes, controlled hypertension, obesity ASA 3: a patient with a severe systemic disease that limits activity (angina, COPD, prior Myocardial infarction) ASA 4: a patient with an incapacitating disease that is a constant threat to life (CHF, renal failure) ASA 5: a moribund patient not expected to survive 24 hrs. (ruptured aneurysm) ASA 6: a declared brain- patient whose organs are being harvested. For emergent operations, add the letter E after the classification Mallampati Classification Grade 1 Sedation Plan Analgesia, Amnesia, Plan communicated to team members, Discussed options with patient/fam, Discussed risks with patient/fam The patient is an appropriate candidate to undergo the planned procedure, sedation, and anesthesia. The patient immediately re-assessed prior to indication. Bret HARRISON MD May 12, 2019 16:57
--- NOTE | 2019-05-12 16:57 | Coronary Angiography & PCI ---
Peripheral Angio & Interv DATE OF SERVICE: 05/12/19 PRIMARY PHYSICIAN: Tony Sue MD REFERRING SPRAYING MACHINE OPERATOR: Bruno Wray [facility], [facility] PERFORMING INTERVENTIONALIST: Rasheed Wray MD, [facility] INDICATION: left upper extremity dialysis Arteriovenous fistula dysfunction. PROCEDURE: Fistulogram and balloon angioplasty. PREOPERATIVE DIAGNOSI$S: Arteriovenous fistula dysfunction. POSTOPERATIVE DIAGNOSIS: Arteriovenous fistula dysfunction, status post balloon angioplasty. HISTORY: This is a 78-year-old lady with previous history of coronary artery disease and CABG. she has end-stage renal disease with left brachiocephalic fistula for hemodialysis. AV fistula dysfunction has been noted. Fistulogram with possible intervention is recommended. PROCEDURE PERFORMED: 1. Ultrasound-guided fistula access. 2. Fistulogram. 3. aortic arch angiogram: Medical necessity to assess proximal left subclavian artery for stenosis or occlusion. 4. Selective left subclavian angiogram: Medical necessity to assess any further stenosis in the left subclavian artery, brachial artery, AV fistula. 5. Balloon angioplasty of left basilic vein. 6. Balloon angioplasty of the anastomotic site with the brachial artery. SPECIMENS: None. ANESTHESIA: Conscious sedation. ESTIMATED BLOOD LOSS: 20 mL. COMPLICATIONS: None. CONTRAST USED: 158 ml. FLUOROSCOPY DOSE: 565 mgy. FLUOROSCOPY TIME: 33.9 minutes. ANTICOAGULATION: IV heparin. DESCRIPTION OF PROCEDURE: The patient was brought to the shift lab technician after informed consent was taken. All the risks and complication were explained in detail. The patient was draped and prepped in the usual sterile fashion. Access was gained with a micropuncture sheath in the fistula and outflow evaluation was done with an upper extremity venogram followed by central venogram. access was then gained in the right femoral artery with a 5 Guamanian sheath. We advanced a pigtail catheter over a 0.035 guidewire and placed it in the aortic arch. Aortic arch angiogram was done to assess the proximal segment of the left subclavian artery. Significant calcification was noted close to the ostium of the left subclavian artery however there was no severe stenosis and good distal flow was noted. We then with difficulty we were able to access the left subclavian artery with a JR4 catheter and performed selective angiogram of the left subclavian artery and followed it to the left brachial artery as well as the AV fistula. juxta-anastomotic site was also evaluated. FINDINGS: Aortic arch angiogram showed patent proximal segments of the great arteries including the left subclavian artery. Calcification was noted to the ostium of the left subclavian artery. Selective angiogram of the left subclavian artery showed patent left subclavian artery, patent left brachial artery. Severe 90 percent stenosis was noted at the distal anastomotic site of the vein with the brachial artery. severe 70-80 percent stenosis was also noted in the left basilic vein in the distal segment. No significant stenosis in the cephalic subclavian junction. No significant central venous stenosis noted. RECOMMENDATIONS: HEALTH IT SPECIALIST to left basilic vein is recommended. HEALTH IT SPECIALIST to the anastomotic site with the brachial artery is recommended. INTERVENTION DETAILS: we gained ultrasound guided access to the distal cephalic vein with a 6 Guamanian radial sheath. We then took a whisper extra-support wire and were able to cross the lesion in the left basilic vein and the severe stenosis in the anastomotic site with a left brachial artery. The tip of the wire was placed in the distal left radial artery. IV heparin was then given. The lesion in the distal anastomotic site with the left brachial artery was treated with a Vanderbilt 35 6 x 40 x 80 at 6 bertram for 120 seconds. used the same balloon to perform a venoplasty to the severe stenosis in the distal cephalic/basilic vein at 6 bertram for 120 seconds. The balloon was then taken out and we took a Vanderbilt 35 8 x 60 x 80 balloon. and performed 3 inflations at the anastomotic site with the left brachial artery as well as the severe venous stenosis in the distal cephalic vein at 8 bertram for 121 seconds, 4 bertram for 64 seconds and 10 bertram for 61 seconds. Excellent results with mild residual stenosis noted at the anastomotic site with the left brachial artery, less than 20 percent stenosis. With excellent flow. Also significant reduction in stenosis severity of the left cephalic/basilic vein stenosis. Excellent results with no residual stenosis was noted. right femoral artery was closed with a minx device. Manual compression was held to the left upper extremity. CONCLUSION: 1. Fistulogram performed due to left upper extremity AV fistula dysfunction. 2. Severe stenosis of the distal anastomotic site with the left brachial artery was noted which was treated successfully with balloon angioplasty. 3. Severe stenosis of the distal left cephalic/basilic vein was noted which was treated successfully with balloon angioplasty. Rasheed Wray MD, FACP, FACC, [facility] Vascular Medicine and Endovascular Interventions Bret WRAY MD May 12, 2019 16:57
--- NOTE | 2019-05-12 17:05 | History & Physicial-Cardiolgy ---
HPI-Cardiology Cardiology Consultation: Date of Consultation 05/12/19 Date of Admission Attending Physician Bret Wray MD Admitting Physician Tony Sue MD Consulting Physician Bret WRAY MD HPI: Time Seen by a Provider: 12:00 Chief Complaint: the left upper extremity dialysis fistula dysfunction this is a 78-year-old lady who is a patient of Dr. Bruno Wray, Nephrology and has history of end-stage renal disease on hemodialysis in [place], [place]. She had a left basilic vein to brachial artery fistula done 12/01/[address] Dejesus, Vascular Surgery. However post operatively poor thrill was noted but since doppler examination was decent therefore she was discharged to follow up. The patient saw Dr. dejesus on 01/13/2019 and the fistula had good thrill and bruit the auscultation and Doppler. Therefore suggesting good maturation of left AV fistula and was scheduled for transposition/second stage which was done on 02/04/2019. Postoperatively the fistula had good thrill but unfortunately dialysis through the fistula was not possible suggesting fistula dysfunction. Review of Systems-Cardiology Review of Systems Constitutional: As described under HPI; No As described under HPI, No no symptoms reported, No chills, No fever, No lightheadedness Eyes: No As described under HPI, No no symptoms reported, No blindness, No blurred vision, No contact lenses, No drainage, No decreased acuity, No foreign body sensation, No pain, No vision change Ears/Nose/Throat: No As described under HPI, No no symptoms reported, No chronic hearing loss, No ear discharge, No ear pain, No nasal drainage, No ulcerations Respiratory: No no symptoms reported; As described under HPI; No As described under HPI, No cough, No orthopnea, No shortness of breath, No SOB with excertion Cardiovascular: No no symptoms reported; As described under HPI; No As describe d under HPI, No chest pain, No edema, No irregular heart rate, No lightheadedness, No palpitations; other (thrill noted left upper extremity.) Gastrointestinal: No no symptoms reported, No As described under HPI, No abdomen distended, No abdominal pain, No blood streaked bowels, No constipation, No diarrhea, No nausea, No vomiting, No stool coloration changes Genitourinary: No As described under HPI, No burning, No dysuria, No discharge, No frequency, No flank pain, No hematuria, No urgency : Yes : No Skin: No rash, No skin related problems, No ulcerations Psychiatric/Neurological: No anxiety, No depression, No seizure, No focal weakness, No syncope Hematologic: No bleeding abnormalities [facility]-[id number] Hx Patient Social History Alcohol Use: Denies Use Recreational Drug Use: No Smoking Status: Former Smoker 2nd Hand Smoke Exposure: No Recent Foreign Travel: No Recent Infectious Disease Expo: No Immunizations Up To Date Date of Pneumonia Vaccine: Aug 12, 2016 Date of Influenza Vaccine: Aug 02, 2012 Past Medical History PMH As described under Assessment. Allergies and Home Medications Allergies Coded Allergies: IV Dye, Iodine Containing Contrast (Unverified Allergy, 01/19/13) Sulfa(Sulfonamide Antibiotics) (Unverified Allergy, 01/19/13) Home Medications Acetaminophen 650 Mg Tablet.er, 650 MG PO Q4H PRN for FEVER, (Reported) Albuterol Sulfate 0.63 Mg/3 Ml Vial.neb, 1 UNIT IH Q4H PRN for SHORTNESS OF BREATH, (Reported) Amiodarone HCl 400 Mg Tablet, 400 MG PO DAILY, (Reported) Aspirin 81 Mg Tab.chew, 81 MG PO DAILY, (Reported) Cinacalcet HCl 30 Mg Tablet, 30 MG PO DAILY, (Reported) Clopidogrel Bisulfate 75 Mg Tablet, 75 MG PO DAILY, (Reported) Furosemide 80 Mg Tablet, 80 MG PO DAILY, (Reported) Gabapentin 300 Mg Cap, 300 MG PO TID, (Reported) Hydrocodone/Acetaminophen 1 Each Tablet, 1 TAB PO Q6H PRN for PAIN-MILD TO MODERATE, (Reported) Insulin Degludec 100 Unit/1 Ml Insuln.pen, 15 UNIT SQ HS, (Reported) Insulin Lispro 100 Unit/1 Ml Vial, 12 UNIT SQ TID, (Reported) Levothyroxine Sodium 125 Mcg Tablet, 125 MCG PO DAILY, (Reported) Midodrine HCl 10 Mg Tablet, 10 MG PO THREE TIMES WEEK, (Reported) 10 MG BY MOUTH THREE TIMES EVERY WEEK ON DIALYSIS DAYS. THEN NEEDS TO TAKE 1 (10 MG) DOSE WITH HER TO DIALYSIS FOR ESSENTIAL PRIMARY HYPERTENSION. HOLD IF SBP BELOW 90 Mirtazapine 15 Mg Tab.rapdis, 15 MG PO DAILY, (Reported) Ondansetron HCl 4 Mg Tablet, 4 MG PO QID PRN for NAUSEA/VOMITING-1ST LINE, (Reported) Sevelamer Carbonate 800 Mg Tablet, 800 MG PO TID, (Reported) Simvastatin 20 Mg Tablet, 20 MG PO HS, (Reported) Sodium Chloride 50 Ml Drops, 7 SPRAY NS QID, (Reported) Sodium Chloride 50 Ml Drops, 2 SPRAYS NS PRN PRN for DRY NOSE, (Reported) Sodium Chloride/Aloe Vera 14.1 Gm Gel..gram., 1 UNIT NA HS, (Reported) THIN LAYER NASALLY AT BEDTIME FOR RIGHT NARE FOR 3 MONTHS Patient Home Medication List Home Medication List Reviewed: Yes Physical Exam-Cardiology Physical Exam Vital Signs/I&O 05/12/19 11:32 Temp 98.3 Pulse 66 Resp 16 B/P (MAP) 155/61 (92) Pulse Ox 98 O2 Delivery Room Air Capillary Refill : Constitutional: appears stated age; No apparent distress; well-developed, well- nourished HEENT: PERRL; No discharge; hearing is well preserved, oral hygience is good; No ulceration, No xanthelasmas are seen Neck: No carotid bruit; carotid pulses are 2 + bilaterally Respiratory: chest is bilaterally symmetric, lungs clear to auscultation Cardiovascular: regular rate-rhythm; No irregularly irregular, No extra beats, No parasternal heave is noted, No JVD, No edema, No bradycardia, No tachycardia, No point of maximal impulse, No cardiac thrills are palpable; S1 and S2; No gallop/S3, No gallop/S4, No diastolic murmur, No systolic murmur, No friction rub, No click, No other Gastrointestinal: No tender, No soft, No round, No distended, No pulsatile mass, No organomegaly, No guarding, No rebound, No tenderness, No hernia, No ma ss, No audible bowel sounds, No abnormal bowel sounds, No abdominal bruits, No spleenomegaly, No other Rectal: deferred Extremities: other (thrill noted left upper extremity.); No clubbing, No cyanosis, No significant edema Neurologic/Psychiatric: no motor/sensory deficits, alert, normal mood/affect, oriented x 3, power is 5/5 both on sides Skin: No rash, No ulcerations Data Review Labs Laboratory Tests 05/12/19 11:33: White Blood Count 5.4, Red Blood Count 3.07L, Hemoglobin 9.9L, Hematocrit 32L, Mean Corpuscular Volume 104H, Mean Corpuscular Hemoglobin 32, Mean Corpuscular Hemoglobin Concent 31L, Red Cell Distribution Width 15.8H, Platelet Count 170, Mean Platelet Volume 10.8H, Prothrombin Time 15.0H, INR Comment 1.1, Activated Partial Thromboplast Time 36H 05/12/19 11:58: Sodium Level 138, Potassium Level 4.0, Chloride Level 99, Carbon Dioxide Level 27, Anion Gap 12, Blood Urea Nitrogen 36H, Creatinine 4.90H, Estimat Glomerular Filtration Rate 9, BUN/Creatinine Ratio 7, Glucose Level 148H, Calcium Level 8. 5, Corrected Calcium 9.2, Total Bilirubin 0.5, Aspartate Amino Transf (AST/SGOT) 29, Alanine Aminotransferase (ALT/SGPT) 20, Alkaline Phosphatase 182H, Total Protein 7.2, Albumin 3.1L A/P-Cardiology Assessment/Admission Diagnosis left upper extremity AV fistula dysfunction, End-stage renal disease on dialysis Admission Status: Observation Plan fistulogram, venogram, arteriogram, possible intervention planned. Informed consent taken. Bret WRAY MD May 12, 2019 17:05
[2019-05-12] MEDS: NS IV 1000 ML 1,000 ML IV SCH (17:07)
[2019-05-12] MEDS ORDERED: PATIENT MAY USE OWN MEDS, ALL PO SCH (17:15)
[2019-05-13] VITALS: BP 120/60
[2019-05-13] MEDS: NS IV 1000 ML 1,000 ML IV SCH (03:31)
[2019-05-13 04:00] VITALS: BP 130/49
--- NOTE | 2019-05-13 09:50 | NUR ---
[facility] and [facility] to HD. IV removed from left wrist at this time while pt assisted with getting dressed. Advised pt to continue all previous home medications per Dr. 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 Pt verbalized understanding and was discharged to [facility] transportation/staff at this time.
--- NOTE | 2019-05-13 10:19 | Cardiology Discharge Summary ---
Diagnosis/Chief Complaint Date of Admission 05/12/2019 Date of Discharge 05/13/2019 Admission Diagnosis AV fistula dysfunction Final/Discharge Diagnosis ESRD on Dialysis, Left Upper extremity AV fistula dysfunction - successful balloon angioplasty. Chief Complaint/HPI Chief Complaint/HPI this is a 78-year-old lady who is a patient of Dr. Bruno Harrison, Nephrology and has history of end-stage renal disease on hemodialysis in [place], [place]. She had a left basilic vein to brachial artery fistula done 12/01/[address] Aguilera, Vascular Surgery. However post operatively poor thrill was noted but since doppler examination was decent therefore she was discharged to follow up. The patient saw Dr. aguilera on 01/13/2019 and the fistula had good thrill and bruit the auscultation and Doppler. Therefore suggesting good maturation of left AV fistula and was scheduled for transposition/second stage which was done on 02/04/2019. Postoperatively the fistula had good thrill but unfortunately dialysis through the fistula was not possible suggesting fistula dysfunction. Discharge Summary Procedures left upper extremity fistulogram Left basilic vein/fistula venoplasty. Left brachial angioplasty. Discharge Physical Examination Good thrill Hospital Course Was the Problem List Reviewed?: Yes unremarkable Discussion & Recommendations Discussion Discharge instructions took over 30 minutes to complete. Discussed at length. Follow up appt.: Dr Bruno Harrison, Nephrology Dicharge Diet: Low Sodium Diet Activity as Tolerated: Yes Home Medications Reviewed patient Home Medication Reconciliation performed by pharmacy medication reconciliations renal technician and/or nursing. Patients Allergies have been reviewed. Discharge Home Medications: Reviewed and agree with Discharge Medication list on patient's Discharge Instruction sheet Condition at discharge stable Instructions to patient/family Discussed with patient Bret HARRISON MD May 13, 2019 10:19
== END 2019-05-13 09:50 | disposition home or self-care (01) ==
LOC: CATH 11:08 → ICU 17:38 → CATH 05-13 09:50
PROVIDERS: ATTEND Internal Medicine Interventional Cardiology
DX: T82.590A Other mechanical complication of surgically created arteriovenous fistula, initial encounter (principal); N18.6 End stage renal disease; Z99.2 Dependence on renal dialysis; E11.65 Type 2 diabetes mellitus with hyperglycemia; I48.91 Unspecified atrial fibrillation; I25.10 Atherosclerotic heart disease of native coronary artery without angina pectoris; I25.2 Old myocardial infarction; Z88.0 Allergy status to penicillin; Z95.1 Presence of aortocoronary bypass graft; Z79.899 Other long term (current) drug therapy; Z87.891 Personal history of nicotine dependence; Z79.82 Long term (current) use of aspirin; Z91.041 Radiographic dye allergy status; Z79.4 Long term (current) use of insulin
CPT/HCPCS: 36221; 36415; 80053; 85027; 85610; 85730; 87081